=== PATIENT | male | born 1960 | race Caucasian/White ===

== ENCOUNTER 2021-02-04 12:46 | Inpatient (IN) | payer MEDICAID ==
[~2021-02-04] VITALS: Ht 167.6 cm; Wt 71.2 kg
[2021-02-04] MEDS ORDERED: IV NORMAL SALINE 1000 ML BAG IV ONE (13:15)
[2021-02-04] MEDS ORDERED: PIPERACILLIN SODIUM/TAZOBACTAM 3.375 G in IV DEXTROSE 5% 50 ML IV ONE (13:30)
[2021-02-04] MEDS ORDERED: IV NORMAL SALINE 0 ML IV ONE (13:38)
[2021-02-04] MEDS ORDERED: IOHEXOL 300MG/ML 100 ML INFUS..BTL ONE (13:38)
[2021-02-04] MEDS ORDERED: SWABABLE VALVE TRANSFER SET EA MC ONE (13:38)
[2021-02-04 13:42] LABS: HEMATOCRIT 29.3 % (36.7-47.1); MEAN CORPUSCULAR HEMOGLOBIN 26.2 uug (23.8-33.4); MEAN CORPUSCULAR VOLUME 80.4 fL (73.0-96.2); PLATELET COUNT (AUTO) 212 K/uL (152-348)
[2021-02-04 13:47] LABS: CREATININE 1.9 mg/dL (0.6-1.3); POTASSIUM 3.6 mmol/L (3.5-5.1)
[2021-02-04 13:52] LABS: BILIRUBIN,DIRECT 0.1 mg/dL (0.0-0.2); BILIRUBIN,TOTAL 0.4 mg/dL (0.2-1.0); TOTAL PROTEIN, SERUM 7.8 g/dL (6.4-8.2)
[2021-02-04] MEDS ORDERED: MORPHINE SULFATE 2 MG/1 ML DISP.SYRIN IV ONE (14:00)
[2021-02-04] MEDS ORDERED: MORPHINE SULFATE 2 MG/1 ML DISP.SYRIN ONE (14:08)
[2021-02-04] MEDS ORDERED: PIPERACILLIN/TAZOBACTAM/D5W 50 ML IV ONE (14:08)
[2021-02-04] MEDS ORDERED: AZITHROMYCIN IV 500 MG in IV DEXTROSE 5% 250 ML IV ONE (15:30)
[2021-02-04] MEDS ORDERED: AZITHROMYCIN 500MG/ D5W 250ML IVPB **ER PYXIS ONLY IV ONE (15:53)
[2021-02-04] MEDS ORDERED: ACETAMINOPHEN 650 MG SUPP.RECT RC ONE ×2 (16:30→16:35)
[2021-02-04] MEDS ORDERED: ACETAMINOPHEN 325 MG SUPP RC ONE (16:30)
[2021-02-04] MEDS ORDERED: IV NORMAL SALINE 250 ML IV ONE (16:30)
[2021-02-04] MEDS ORDERED: VANCOMYCIN 1G/D5W 200 ML PIGGYBACK IV ONE (16:30)
[2021-02-04] MEDS ORDERED: IV NORMAL SALINE 500 ML IV ONE (16:30)
[2021-02-04] MEDS ORDERED: ACETAMINOPHEN 325 MG SUPP ONE (16:34)
[2021-02-04] MEDS ORDERED: VANCOMYCIN IV 200 ML ONE (16:35)
[2021-02-04 16:44] LABS: *BILIRUBIN,URIN NEGATIVE (NEGATIVE); *BLOOD, URINE 2+ (NEGATIVE); *CLARITY,URINE SLIGHTLY CLOUDY (CLEAR); *COLOR,URINE YELLOW (YELLOW); *KETONES,URINE NEGATIVE (NEGATIVE); *UROBILINOGEN,URINE 0.2 E.U./dl (NORMAL); LEUKOCYTE ESTERASE ,URINE NEGATIVE (NEGATIVE); NITRITE, URINE NEGATIVE (NEGATIVE); UGLUCOSE NEGATIVE (NEGATIVE)
[2021-02-04 16:51] LABS: ABG HCO3 19.8 mmol/L; ABG PCO2 27.5 mmHg (35.0-45.0); ABG PH 7.476 (7.350-7.450); ABG PO2 399.6 mmHg (75.0-100.0); ABG SITE LEFT RADIAL; COHb 0.3 % (0.5-1.5); MetHb 0.3 % (0.0-1.5); O2Hb 97.5 % (94.0-97.0); VENT MODE BIPAP
[2021-02-04 16:51] LABS: BACTERIA,URINE MANY /HPF (NONE SEEN); SQUAMOUS EPITHELIAL CELL,UR FEW /HPF (NONE SEEN); URINE AMORPHOUS PHOSPHATES FEW /HPF
[2021-02-04] MEDS: ASPIRIN EC 325 MG TABLET.DR PO SCH (21:30)
[2021-02-04 23:00] VITALS: BP 87/50
[2021-02-05] VITALS (73 sets, daily range): BP systolic 76–149; BP diastolic 38–120
[2021-02-05] MEDS ORDERED: PIPERACILLIN/TAZOBACTAM/D5W 50 ML ONE (00:23)
[2021-02-05] MEDS: HEPARIN/D5W DRIP 500 ML IV PRN (00:33)
[2021-02-05] MEDS: [UNRECOGNIZED DRUG - MIXTURE] IV SCH ×2 (00:34→10:01)
[2021-02-05] MEDS: MORPHINE SULFATE 2 MG/1 ML DISP.SYRIN IV PRN ×4 (01:36→19:51)
[2021-02-05] MEDS ORDERED: PHENYLEPHRINE 10 MG/1 ML VIAL ONE (03:17)
[2021-02-05] MEDS: PHENYLEPHRINE IV 50 MG in IV NORMAL SALINE 245 ML IV PRN (03:27)
[2021-02-05 05:33] LABS: MEAN CORPUSCULAR VOLUME 82.1 fL (73.0-96.2)
[2021-02-05 05:34] LABS: HEMATOCRIT 26.2 % (36.7-47.1); MEAN CORPUSCULAR HEMOGLOBIN 26.6 uug (23.8-33.4); PLATELET COUNT (AUTO) 153 K/uL (152-348)
[2021-02-05 05:50] LABS: THYROID STIMULATING HORMONE 0.392 mIU/mL (0.358-3.740)
[2021-02-05 05:51] LABS: BILIRUBIN,TOTAL 0.6 mg/dL (0.2-1.0); MAGNESIUM 1.4 mg/dL (1.8-2.4); POTASSIUM 4.7 mmol/L (3.5-5.1)
[2021-02-05 06:47] LABS: BAND % (MANUAL) 38 % (0-10); LYMPHOCYTES % (MANUAL) 5 % (20-40); METAMYELOCYTES % 3 % (0-1); MONOCYTES % (MANUAL) 2 % (2-10); NEUTROPHILS % (MANUAL) 52 % (42-75)
[2021-02-05] MEDS ORDERED: MAGNESIUM SULFATE/D5W 100 ML IV SCH (07:15)
[2021-02-05] MEDS: ONDANSETRON 4 MG/2 ML VIAL IV PRN (08:24)
[2021-02-05] MEDS: PANTOPRAZOLE SODIUM 40 MG VIAL IV SCH (08:28)
[2021-02-05] MEDS ORDERED: IV D5/ 0.9% NACL 1,000 ML IV SCH (09:00)
[2021-02-05] MEDS: IV D5/ 0.9% NACL 1,000 ML IV PRN ×2 (09:30→18:12)
[2021-02-05] MEDS ORDERED: LORAZEPAM 2 MG/1 ML VIAL IV STA (10:17)
[2021-02-05] MEDS ORDERED: METOCLOPRAMIDE HCL 10 MG/2 ML VIAL IV STA (10:18)
[2021-02-05] MEDS ORDERED: diphenhydrAMINE 50 MG/1 ML VIAL IV STA (10:18)
[2021-02-05] MEDS: ASPIRIN EC 325 MG TABLET.DR PO SCH (11:07)
[2021-02-05] MEDS ORDERED: MIRALAX 17 GM POWD.PACK PO PRN (11:15)
[2021-02-05] MEDS: ATORVASTATIN 40 MG TABLET PO SCH ×2 (11:46→21:02)
[2021-02-05] MEDS: FERROUS SULFATE 300 MG/5 ML LIQUID UDC NG SCH ×2 (11:47→21:08)
[2021-02-05] MEDS: CEFEPIME HCL 1 G in IV DEXTROSE 5% 50 ML IV SCH (13:19)
[2021-02-05] MEDS: LORAZEPAM 2 MG/1 ML VIAL IV PRN ×2 (13:25→23:46)
[2021-02-05] MEDS ORDERED: PIPERACILLIN/TAZO 2.25 G in IV DEXTROSE 5% 50 ML IV SCH (14:00)
[2021-02-05 14:28] LABS: *BLOOD, URINE 3+ (NEGATIVE); *COLOR,URINE YELLOW (YELLOW); *KETONES,URINE 1+ (NEGATIVE); *UROBILINOGEN,URINE 0.2 E.U./dl (NORMAL); LEUKOCYTE ESTERASE ,URINE TRACE (NEGATIVE); NITRITE, URINE NEGATIVE (NEGATIVE); PH,URINE 5.5 (5.0-8.0); UGLUCOSE NEGATIVE (NEGATIVE)
[2021-02-05 14:35] LABS: *BILIRUBIN,URIN 1+ (NEGATIVE)
[2021-02-05 14:40] LABS: *CLARITY,URINE TURBID (CLEAR); RBC,URINE TNTC /HPF (0-3)
[2021-02-05 14:43] LABS: BACTERIA,URINE MODERATE /HPF (NONE SEEN); SQUAMOUS EPITHELIAL CELL,UR FEW /HPF (NONE SEEN)
[2021-02-05] MEDS: ACETAMINOPHEN 650 MG SUPP.RECT RC PRN (15:09)
[2021-02-05] MEDS ORDERED: FLEET ENEMA 133 ML BOTTLE RC ONE (15:30)
[2021-02-05 15:44] LABS: *URINE TOTAL PROTEIN RANDOM 503.1 mg/dL (<150/24HR)
[2021-02-05] MEDS ORDERED: CLON1TAB PO (15:46)
[2021-02-05] MEDS ORDERED: LORA10TA7 PO (15:46)
[2021-02-05] MEDS ORDERED: OXYC-128 PO (15:46)
[2021-02-05] MEDS ORDERED: FAMO1TAB29 PO (15:46)
[2021-02-05] MEDS ORDERED: ACET-2154 PO (15:46)
[2021-02-05] MEDS ORDERED: LACT1CAP7 PO (15:46)
[2021-02-05] MEDS ORDERED: CLON0.1T PO (15:46)
[2021-02-05] MEDS ORDERED: MELA3CAP2 PO (15:46)
[2021-02-05] MEDS ORDERED: ROSU20TA32 PO (15:46)
[2021-02-05] MEDS ORDERED: DOCU-141 PO (15:46)
[2021-02-05] MEDS ORDERED: TRAV5DRO EACHEYE (15:46)
[2021-02-05] MEDS ORDERED: OLOP2.5D12 EACHEYE (15:46)
[2021-02-05] MEDS ORDERED: INSU100V7 SQ (15:46)
[2021-02-05] MEDS ORDERED: GLUC1KIT IM (15:46)
[2021-02-05] MEDS ORDERED: METO25TA3 PO (15:46)
[2021-02-05] MEDS ORDERED: FERR325T24 PO (15:46)
[2021-02-05] MEDS ORDERED: ASPI-1420 PO (15:46)
[2021-02-05] MEDS ORDERED: NIFE-34 PO (15:46)
[2021-02-05] MEDS ORDERED: CAPS60CR4 TP (15:46)
[2021-02-05] MEDS ORDERED: ASCO500C18 PO (15:46)
[2021-02-05] MEDS ORDERED: CALC-494 PO (15:46)
[2021-02-05] MEDS ORDERED: CYCL30DR EACHEYE (15:46)
[2021-02-05] MEDS ORDERED: DEXT50DI8 IV (15:46)
[2021-02-05] MEDS ORDERED: SENN-261 PO (15:46)
[2021-02-05] MEDS ORDERED: ASPI1TAB32 PO (15:46)
[2021-02-05] MEDS ORDERED: TAMS-3 PO (15:46)
[2021-02-05] MEDS ORDERED: DORZ10DR11 EACHEYE (15:46)
[2021-02-05] MEDS: METOPROLOL TARTRATE 25 MG TABLET PO SCH ×3 (15:49→22:00)
[2021-02-05] MEDS ORDERED: DEXTROSE 50% 50 ML DISP.SYRIN IV PRN (16:00)
[2021-02-05] MEDS: VANCOMYCIN IV 750 MG in IV DEXTROSE 5% 250 ML IV SCH (16:23)
[2021-02-05] MEDS: BLOOD SUGAR DIAGNOSTIC 1 EACH STRIP VI SCH ×2 (18:23→23:54)
[2021-02-05] MEDS: INSULIN REGULAR, HUMAN 300 UNIT/3 ML VIAL SQ PRN ×2 (18:24→23:56)
[2021-02-05] MEDS: GUAIFENESIN/DEXTROMETHORPHAN 5 ML UDC PO PRN (22:59)
[2021-02-06] VITALS (94 sets, daily range): BP systolic 33–181; BP diastolic 21–154
[2021-02-06] MEDS: HEPARIN/D5W DRIP 500 ML IV PRN (00:18)
[2021-02-06] MEDS: PHENYLEPHRINE IV 50 MG in IV NORMAL SALINE 245 ML IV PRN (00:19)
[2021-02-06] MEDS: MORPHINE SULFATE 2 MG/1 ML DISP.SYRIN IV PRN ×3 (00:56→10:56)
[2021-02-06] MEDS: IV D5/ 0.9% NACL 1,000 ML IV PRN ×3 (02:34→22:05)
[2021-02-06 02:57] LABS: ABG BASE EXCESS -6.7 mmol/L; ABG HCO3 17.9 mmol/L; ABG PCO2 32.1 mmHg (35.0-45.0); ABG PH 7.364 (7.350-7.450); ABG PO2 59.2 mmHg (75.0-100.0); ABG SITE RIGHT RADIAL; ABG TOTAL HEMOGLOBIN 8.3 G/dL (13.5-18.0); COHb 0.4 % (0.5-1.5); MetHb 0.3 % (0.0-1.5); O2Hb 89.3 % (94.0-97.0); VENT MODE BIPAP
[2021-02-06] MEDS: BLOOD SUGAR DIAGNOSTIC 1 EACH STRIP VI SCH ×4 (05:09→23:34)
[2021-02-06] MEDS: INSULIN REGULAR, HUMAN 300 UNIT/3 ML VIAL SQ PRN ×4 (05:10→23:37)
[2021-02-06 05:30] LABS: HEMATOCRIT 26.2 % (36.7-47.1); MEAN CORPUSCULAR HEMOGLOBIN 25.9 uug (23.8-33.4); MEAN CORPUSCULAR VOLUME 82.5 fL (73.0-96.2); PLATELET COUNT (AUTO) 106 K/uL (152-348)
[2021-02-06 05:39] LABS: BILIRUBIN,TOTAL 0.6 mg/dL (0.2-1.0); CREATININE 3.3 mg/dL (0.6-1.3); MAGNESIUM 1.7 mg/dL (1.8-2.4); PHOSPHOROUS 3.5 mg/dL (2.5-4.9); POTASSIUM 3.7 mmol/L (3.5-5.1); TOTAL PROTEIN, SERUM 6.2 g/dL (6.4-8.2)
[2021-02-06 05:41] LABS: BILIRUBIN,DIRECT 0.3 mg/dL (0.0-0.2); BILIRUBIN,TOTAL 0.5 mg/dL (0.2-1.0); TOTAL PROTEIN, SERUM 6.1 g/dL (6.4-8.2)
[2021-02-06 06:14] LABS: ABG BASE EXCESS -5.7 mmol/L; ABG HCO3 18.5 mmol/L; ABG PCO2 31.4 mmHg (35.0-45.0); ABG PH 7.389 (7.350-7.450); ABG PO2 147.4 mmHg (75.0-100.0); ABG SITE RIGHT RADIAL; ABG TOTAL HEMOGLOBIN 8.1 G/dL (13.5-18.0); COHb 0.3 % (0.5-1.5); MetHb 0.3 % (0.0-1.5); VENT MODE BIPAP
[2021-02-06 07:54] LABS: ABG BASE EXCESS -6.6 mmol/L; ABG HCO3 17.9 mmol/L; ABG PCO2 31.8 mmHg (35.0-45.0); ABG PH 7.369 (7.350-7.450); ABG PO2 254.1 mmHg (75.0-100.0); ABG SITE LEFT RADIAL; ABG TOTAL HEMOGLOBIN 8.3 G/dL (13.5-18.0); COHb 0.3 % (0.5-1.5); MetHb 0.3 % (0.0-1.5); O2Hb 97.7 % (94.0-97.0); VENT MODE BIPAP
[2021-02-06] MEDS ORDERED: PROPOFOL 100 ML IV PRN (08:30)
[2021-02-06] MEDS ORDERED: MAGNESIUM SULFATE/D5W 100 ML IV SCH (08:45)
[2021-02-06] MEDS: METOPROLOL TARTRATE 25 MG TABLET PO SCH ×2 (08:57→19:29)
[2021-02-06] MEDS: ASPIRIN EC 325 MG TABLET.DR PO SCH (08:57)
[2021-02-06] MEDS: FERROUS SULFATE 300 MG/5 ML LIQUID UDC NG SCH ×2 (08:57→18:09)
[2021-02-06] MEDS: PANTOPRAZOLE SODIUM 40 MG VIAL IV SCH (08:57)
[2021-02-06] MEDS: MIDAZOLAM HCL 50 MG in IV NORMAL SALINE 40 ML IV PRN ×3 (09:05→23:13)
[2021-02-06] MEDS ORDERED: NOREPINEPHRINE BITARTRATE 8 MG in IV NORMAL SALINE 242 ML IV PRN (09:30)
[2021-02-06] MEDS ORDERED: NOREPINEPHRINE BITARTRATE 32 MG in IV NORMAL SALINE 218 ML IV PRN (09:30)
[2021-02-06] MEDS: LORAZEPAM 2 MG/1 ML VIAL IV PRN (09:54)
[2021-02-06] MEDS: FENTANYL CITRATE/PF 1,000 MCG in IV NORMAL SALINE 80 ML IV PRN ×2 (09:57→19:16)
[2021-02-06 10:58] LABS: ABG BASE EXCESS -6.9 mmol/L; ABG HCO3 18.2 mmol/L; ABG PCO2 34.5 mmHg (35.0-45.0); ABG PO2 161.2 mmHg (75.0-100.0); ABG SITE LEFT RADIAL; ABG TOTAL HEMOGLOBIN 7.8 G/dL (13.5-18.0); COHb 0.3 % (0.5-1.5); MetHb 0.3 % (0.0-1.5); O2Hb 97.3 % (94.0-97.0); VENT MODE VENT - A/C; VT, ABG 550 mL
[2021-02-06] MEDS: PRECEDEX 400 MCG/100 ML BOTTLE 100 ML IV PRN ×2 (11:47→18:26)
[2021-02-06] MEDS: CEFEPIME HCL 1 G in IV DEXTROSE 5% 50 ML IV SCH (12:23)
[2021-02-06] MEDS: VANCOMYCIN IV 750 MG in IV DEXTROSE 5% 250 ML IV SCH (16:05)
[2021-02-06] MEDS: ATORVASTATIN 40 MG TABLET PO SCH (20:14)
[2021-02-06] MEDS: MUPIROCIN 2% OINT 22 GM TUBE NS SCH (20:15)
[2021-02-07] VITALS (96 sets, daily range): BP systolic 67–131; BP diastolic 23–72
[2021-02-07] MEDS: PRECEDEX 400 MCG/100 ML BOTTLE 100 ML IV PRN ×3 (00:54→14:08)
[2021-02-07] MEDS: HEPARIN/D5W DRIP 500 ML IV PRN (02:12)
[2021-02-07 04:56] LABS: HEMATOCRIT 22.2 % (36.7-47.1); MEAN CORPUSCULAR HEMOGLOBIN 26.2 uug (23.8-33.4); MEAN CORPUSCULAR VOLUME 83.6 fL (73.0-96.2); PLATELET COUNT (AUTO) 95 K/uL (152-348)
[2021-02-07] MEDS: FENTANYL CITRATE/PF 1,000 MCG in IV NORMAL SALINE 80 ML IV PRN ×2 (04:56→14:06)
[2021-02-07 05:09] LABS: BILIRUBIN,TOTAL 0.9 mg/dL (0.2-1.0); CREATININE 3.8 mg/dL (0.6-1.3); MAGNESIUM 1.8 mg/dL (1.8-2.4); PHOSPHOROUS 3.8 mg/dL (2.5-4.9); TOTAL PROTEIN, SERUM 5.4 g/dL (6.4-8.2)
[2021-02-07] MEDS: INSULIN REGULAR, HUMAN 300 UNIT/3 ML VIAL SQ PRN ×4 (05:25→23:28)
[2021-02-07] MEDS: BLOOD SUGAR DIAGNOSTIC 1 EACH STRIP VI SCH ×4 (05:25→23:24)
[2021-02-07 05:58] LABS: ABG SITE LEFT RADIAL; MetHb 0.3 % (0.0-1.5); VENT MODE VENT - A/C; VT, ABG 550 mL
[2021-02-07] MEDS: IV D5/ 0.9% NACL 1,000 ML IV PRN (06:05)
[2021-02-07 06:31] LABS: ABG BASE EXCESS -9.8 mmol/L; ABG HCO3 16.5 mmol/L; ABG PCO2 38.2 mmHg (35.0-45.0); ABG PH 7.254 (7.350-7.450); ABG PO2 57.4 mmHg (75.0-100.0); COHb 1.3 % (0.5-1.5); O2Hb 87.3 % (94.0-97.0)
[2021-02-07] MEDS: PANTOPRAZOLE SODIUM 40 MG VIAL IV SCH (08:14)
[2021-02-07] MEDS: FERROUS SULFATE 300 MG/5 ML LIQUID UDC NG SCH ×2 (08:14→16:05)
[2021-02-07] MEDS: METOPROLOL TARTRATE 25 MG TABLET PO SCH (08:15)
[2021-02-07] MEDS: MUPIROCIN 2% OINT 22 GM TUBE NS SCH ×2 (08:15→20:36)
[2021-02-07] MEDS ORDERED: ASPIRIN EC 325 MG TABLET.DR PO SCH (09:00)
[2021-02-07] MEDS ORDERED: ALBUMIN HUMAN 25% 100 ML IV SCH (09:30)
[2021-02-07] MEDS: FUROSEMIDE 40 MG/4 ML VIAL IV SCH ×2 (09:38→20:34)
[2021-02-07] MEDS: MIDAZOLAM HCL 50 MG in IV NORMAL SALINE 40 ML IV PRN ×2 (09:43→20:34)
[2021-02-07] MEDS: NOREPINEPHRINE BITARTRATE 8 MG in IV NORMAL SALINE 242 ML IV PRN (09:44)
[2021-02-07] MEDS: ASPIRIN 81 MG TAB.CHEW NG SCH (09:45)
[2021-02-07 12:06] LABS: A/G RATIO 0.9 (0.7-1.7); ALBUMIN 2.4 g/dL (2.9-4.4); ALPHA-1-GLOBULIN 0.3 g/dL (0.0-0.4); ALPHA-2-GLOBULIN 0.7 g/dL (0.4-1.0); BETA GLOBULIN 0.8 g/dL (0.7-1.3); GLOBULIN, TOTAL 2.7 g/dL (2.2-3.9); M-SPIKE Not Observed g/dL (Not Observed)
[2021-02-07] MEDS: CEFEPIME HCL 1 G in IV DEXTROSE 5% 50 ML IV SCH (12:18)
[2021-02-07 14:16] LABS: BAND % (MANUAL) 6 % (0-10); LYMPHOCYTES % (MANUAL) 5 % (20-40); MONOCYTES % (MANUAL) 2 % (2-10); NEUTROPHILS % (MANUAL) 87 % (42-75)
[2021-02-07] MEDS: ATORVASTATIN 40 MG TABLET PO SCH (20:34)
[2021-02-07] MEDS ORDERED: VANCOMYCIN IV 1,000 MG in IV DEXTROSE 5% 250 ML IV SCH (21:00)
[2021-02-07] MEDS: IV NORMAL SALINE 250 ML IV PRN (22:36)
[2021-02-08] VITALS (96 sets, daily range): BP systolic 65–141; BP diastolic 22–103
[2021-02-08] MEDS: PRECEDEX 400 MCG/100 ML BOTTLE 100 ML IV PRN ×3 (00:19→14:52)
[2021-02-08] MEDS: FENTANYL CITRATE/PF 1,000 MCG in IV NORMAL SALINE 80 ML IV PRN ×3 (00:34→22:35)
[2021-02-08] MEDS: MIDAZOLAM HCL 50 MG in IV NORMAL SALINE 40 ML IV PRN ×2 (05:31→14:37)
[2021-02-08] MEDS: BLOOD SUGAR DIAGNOSTIC 1 EACH STRIP VI SCH ×4 (06:03→23:35)
[2021-02-08] MEDS: Z GUARD REMEDY PASTE 57 GM TUBE TOP PRN (06:04)
[2021-02-08 06:08] LABS: ABG BASE EXCESS 1.2 mmol/L; ABG HCO3 25.8 mmol/L; ABG PCO2 40.7 mmHg (35.0-45.0); ABG PO2 77.6 mmHg (75.0-100.0); ABG SITE LEFT RADIAL; ABG TOTAL HEMOGLOBIN 8.6 G/dL (13.5-18.0); COHb 0.5 % (0.5-1.5); MetHb 0.3 % (0.0-1.5); O2Hb 94.8 % (94.0-97.0); VENT MODE VENT - A/C; VT, ABG 550 mL
[2021-02-08 06:56] LABS: MEAN CORPUSCULAR HEMOGLOBIN 26.5 uug (23.8-33.4); MEAN CORPUSCULAR VOLUME 80.5 fL (73.0-96.2); PLATELET COUNT (AUTO) 124 K/uL (152-348)
[2021-02-08 07:19] LABS: CREATININE 2.8 mg/dL (0.6-1.3); MAGNESIUM 1.7 mg/dL (1.8-2.4); POTASSIUM 3.1 mmol/L (3.5-5.1)
[2021-02-08] MEDS ORDERED: POTASSIUM CHLORIDE 20 MEQ POWDER PACKET NG ONE (07:30)
[2021-02-08] MEDS: FUROSEMIDE 40 MG/4 ML VIAL IV SCH ×3 (07:39→21:39)
[2021-02-08] MEDS ORDERED: NORMAL SALINE IV SCH ×2 (07:45→08:00)
[2021-02-08] MEDS ORDERED: CHLOROTHIAZIDE SODIUM IV SCH ×2 (07:45→08:00)
[2021-02-08] MEDS: MAGNESIUM SULFATE/D5W 100 ML IV SCH ×2 (07:51→08:52)
[2021-02-08] MEDS: ASPIRIN 81 MG TAB.CHEW NG SCH (08:17)
[2021-02-08] MEDS: FERROUS SULFATE 300 MG/5 ML LIQUID UDC NG SCH ×2 (08:17→17:06)
[2021-02-08] MEDS: PANTOPRAZOLE SODIUM 40 MG VIAL IV SCH (08:18)
[2021-02-08] MEDS: MUPIROCIN 2% OINT 22 GM TUBE NS SCH ×2 (08:19→21:42)
[2021-02-08] MEDS ORDERED: MAGNESIUM SULFATE/D5W 100 ML IV SCH (09:30)
[2021-02-08] MEDS ORDERED: POTASSIUM CHLORIDE 50 ML IV SCH (09:30)
[2021-02-08] MEDS: NOREPINEPHRINE BITARTRATE 8 MG in IV NORMAL SALINE 242 ML IV PRN (09:57)
[2021-02-08] MEDS ORDERED: METOLAZONE 2.5 MG TABLET PO ONE (10:00)
[2021-02-08] MEDS: CEFEPIME HCL 1 G in IV DEXTROSE 5% 50 ML IV SCH (12:33)
[2021-02-08] MEDS: INSULIN REGULAR, HUMAN 300 UNIT/3 ML VIAL SQ PRN ×2 (12:46→23:36)
[2021-02-08] MEDS: PROTEIN SUPPLEMENT (PROSTAT) 30 ML LIQUID NG SCH (18:02)
[2021-02-08] MEDS: NEPRO 1000 ML GT PRN (18:03)
[2021-02-08] MEDS: ACIDOPHILUS/BULGARICUS CHEW TAB NG SCH (21:39)
[2021-02-08] MEDS: ATORVASTATIN 40 MG TABLET PO SCH (21:39)
[2021-02-08] MEDS ORDERED: DOCUSATE SODIUM 100 MG/10 ML LIQUID UDC ONE (21:59)
[2021-02-08] MEDS: DOCUSATE SODIUM 100 MG/10 ML LIQUID UDC NG SCH (22:01)
[2021-02-08] MEDS ORDERED: VANCOMYCIN IV 1,250 MG in IV DEXTROSE 5% 250 ML IV SCH (23:00)
[2021-02-09] VITALS (97 sets, daily range): BP systolic 72–145; BP diastolic 37–75
[2021-02-09] MEDS: PRECEDEX 400 MCG/100 ML BOTTLE 100 ML IV PRN ×4 (00:13→22:40)
[2021-02-09] MEDS: MIDAZOLAM HCL 50 MG in IV NORMAL SALINE 40 ML IV PRN ×3 (00:29→20:35)
[2021-02-09 05:07] LABS: MEAN CORPUSCULAR HEMOGLOBIN 26.8 uug (23.8-33.4); MEAN CORPUSCULAR VOLUME 80.3 fL (73.0-96.2); PLATELET COUNT (AUTO) 137 K/uL (152-348)
[2021-02-09] MEDS: FUROSEMIDE 40 MG/4 ML VIAL IV SCH ×3 (05:30→21:05)
[2021-02-09] MEDS: BLOOD SUGAR DIAGNOSTIC 1 EACH STRIP VI SCH ×4 (05:32→23:31)
[2021-02-09] MEDS: INSULIN REGULAR, HUMAN 300 UNIT/3 ML VIAL SQ PRN ×4 (05:33→23:33)
[2021-02-09 05:42] LABS: BILIRUBIN,TOTAL 1.6 mg/dL (0.2-1.0); CREATININE 3.8 mg/dL (0.6-1.3); MAGNESIUM 2.3 mg/dL (1.8-2.4); PHOSPHOROUS 2.8 mg/dL (2.5-4.9); POTASSIUM 3.4 mmol/L (3.5-5.1); TOTAL PROTEIN, SERUM 5.5 g/dL (6.4-8.2)
[2021-02-09] MEDS: FENTANYL CITRATE/PF 1,000 MCG in IV NORMAL SALINE 80 ML IV PRN ×2 (08:08→18:34)
[2021-02-09 08:12] LABS: ABG BASE EXCESS 0.7 mmol/L; ABG HCO3 24.5 mmol/L; ABG PCO2 35.6 mmHg (35.0-45.0); ABG PH 7.456 (7.350-7.450); ABG PO2 259.4 mmHg (75.0-100.0); ABG SITE RIGHT RADIAL; ABG TOTAL HEMOGLOBIN 7.8 G/dL (13.5-18.0); COHb 0.3 % (0.5-1.5); MetHb 0.3 % (0.0-1.5); O2Hb 97.4 % (94.0-97.0); VENT MODE VENT - A/C; VT, ABG 550 mL
[2021-02-09] MEDS ORDERED: POTASSIUM CHLORIDE 20 MEQ POWDER PACKET GT ONE (09:00)
[2021-02-09] MEDS: PANTOPRAZOLE SODIUM 40 MG VIAL IV SCH (09:01)
[2021-02-09] MEDS: ALBUMIN HUMAN 25% 100 ML IV SCH ×3 (09:04→20:32)
[2021-02-09] MEDS: ASPIRIN 81 MG TAB.CHEW NG SCH (09:04)
[2021-02-09] MEDS: ACIDOPHILUS/BULGARICUS CHEW TAB NG SCH ×2 (09:04→20:30)
[2021-02-09] MEDS: FERROUS SULFATE 300 MG/5 ML LIQUID UDC NG SCH ×2 (09:04→16:37)
[2021-02-09] MEDS: MUPIROCIN 2% OINT 22 GM TUBE NS SCH ×2 (09:09→20:31)
[2021-02-09] MEDS: PROTEIN SUPPLEMENT (PROSTAT) 30 ML LIQUID NG SCH (09:36)
[2021-02-09] MEDS: DOCUSATE SODIUM 100 MG/10 ML LIQUID UDC NG SCH (09:48)
[2021-02-09] MEDS ORDERED: MUPIROCIN 2% OINT 22 GM TUBE NS SCH (11:00)
[2021-02-09] MEDS: CEFEPIME HCL 1 G in IV DEXTROSE 5% 50 ML IV SCH (12:31)
[2021-02-09] MEDS: ACETAMINOPHEN 650 MG SUPP.RECT RC PRN (16:58)
[2021-02-09] MEDS: NOREPINEPHRINE BITARTRATE 8 MG in IV NORMAL SALINE 242 ML IV PRN (20:16)
[2021-02-09] MEDS ORDERED: ACETAMINOPHEN 650 MG/20.3 ML LIQUID UDC GT STA (20:23)
[2021-02-09] MEDS: ATORVASTATIN 40 MG TABLET PO SCH (20:30)
[2021-02-09] MEDS: Z GUARD REMEDY PASTE 57 GM TUBE TOP PRN (20:31)
[2021-02-09 23:24] LABS: HEPATITIS B SURFACE AG Negative
[2021-02-10] VITALS (84 sets, daily range): BP systolic 73–133; BP diastolic 42–73
[2021-02-10] MEDS: ALBUMIN HUMAN 25% 100 ML IV SCH (03:03)
[2021-02-10] MEDS: NOREPINEPHRINE BITARTRATE 8 MG in IV NORMAL SALINE 242 ML IV PRN ×2 (03:17→22:17)
[2021-02-10] MEDS: FENTANYL CITRATE/PF 1,000 MCG in IV NORMAL SALINE 80 ML IV PRN ×2 (04:35→15:17)
[2021-02-10 04:58] LABS: HEMATOCRIT 23.4 % (36.7-47.1); MEAN CORPUSCULAR HEMOGLOBIN 27.5 uug (23.8-33.4); MEAN CORPUSCULAR VOLUME 81.2 fL (73.0-96.2); PLATELET COUNT (AUTO) 134 K/uL (152-348)
[2021-02-10 05:09] LABS: CREATININE 4.6 mg/dL (0.6-1.3); MAGNESIUM 2.2 mg/dL (1.8-2.4); PHOSPHOROUS 2.6 mg/dL (2.5-4.9); VANCOMYCIN,RANDOM 19.7 ug/mL (18.0-26.0)
[2021-02-10] MEDS: FUROSEMIDE 40 MG/4 ML VIAL IV SCH ×3 (05:36→21:08)
[2021-02-10] MEDS: BLOOD SUGAR DIAGNOSTIC 1 EACH STRIP VI SCH ×3 (05:44→17:28)
[2021-02-10] MEDS: INSULIN REGULAR, HUMAN 300 UNIT/3 ML VIAL SQ PRN ×2 (05:46→17:30)
[2021-02-10] MEDS: PRECEDEX 400 MCG/100 ML BOTTLE 100 ML IV PRN ×3 (06:19→21:03)
[2021-02-10] MEDS: MIDAZOLAM HCL 50 MG in IV NORMAL SALINE 40 ML IV PRN ×2 (06:22→17:12)
[2021-02-10] MEDS ORDERED: POTASSIUM CHLORIDE 20 MEQ POWDER PACKET GT ONE (07:30)
[2021-02-10 08:05] LABS: ABG BASE EXCESS -1.7 mmol/L; ABG HCO3 22.1 mmol/L; ABG PCO2 33.2 mmHg (35.0-45.0); ABG PH 7.441 (7.350-7.450); ABG PO2 75.5 mmHg (75.0-100.0); ABG SITE LEFT RADIAL; ABG TOTAL HEMOGLOBIN 8.3 G/dL (13.5-18.0); COHb 0.8 % (0.5-1.5); O2Hb 94.4 % (94.0-97.0); VENT MODE VENT - A/C; VT, ABG 550 mL
[2021-02-10] MEDS: ACETAMINOPHEN 650 MG SUPP.RECT RC PRN (08:38)
[2021-02-10] MEDS: FERROUS SULFATE 300 MG/5 ML LIQUID UDC NG SCH ×2 (08:39→17:16)
[2021-02-10] MEDS: DOCUSATE SODIUM 100 MG/10 ML LIQUID UDC NG SCH (08:39)
[2021-02-10] MEDS: ASPIRIN 81 MG TAB.CHEW NG SCH (08:39)
[2021-02-10] MEDS: PANTOPRAZOLE ORAL SUSPENSION 40 MG SUSPDR.PKT GT SCH (08:39)
[2021-02-10] MEDS: ACIDOPHILUS/BULGARICUS CHEW TAB NG SCH ×2 (08:40→21:08)
[2021-02-10] MEDS: MUPIROCIN 2% OINT 22 GM TUBE NS SCH ×2 (08:41→21:06)
[2021-02-10] MEDS: CEFEPIME HCL 1 G in IV DEXTROSE 5% 50 ML IV SCH (12:50)
[2021-02-10] MEDS ORDERED: VANCOMYCIN IV 500 MG in IV DEXTROSE 5% 100 ML IV ONE (13:00)
[2021-02-10] MEDS: IV NORMAL SALINE 250 ML IV PRN (15:46)
[2021-02-10] MEDS: ATORVASTATIN 40 MG TABLET PO SCH (21:08)
[2021-02-11] VITALS (92 sets, daily range): BP systolic 89–146; BP diastolic 38–103
[2021-02-11] MEDS: BLOOD SUGAR DIAGNOSTIC 1 EACH STRIP VI SCH ×4 (00:32→18:23)
[2021-02-11] MEDS: INSULIN REGULAR, HUMAN 300 UNIT/3 ML VIAL SQ PRN ×4 (00:35→18:24)
[2021-02-11] MEDS: FENTANYL CITRATE/PF 1,000 MCG in IV NORMAL SALINE 80 ML IV PRN ×4 (01:32→21:53)
[2021-02-11] MEDS: MIDAZOLAM HCL 50 MG in IV NORMAL SALINE 40 ML IV PRN ×2 (02:37→17:02)
[2021-02-11] MEDS: PRECEDEX 400 MCG/100 ML BOTTLE 100 ML IV PRN ×3 (04:52→21:58)
[2021-02-11] MEDS: ACETAMINOPHEN 650 MG SUPP.RECT RC PRN (05:11)
[2021-02-11] MEDS: FUROSEMIDE 40 MG/4 ML VIAL IV SCH ×3 (05:11→21:05)
[2021-02-11 05:17] LABS: HEMATOCRIT 24.6 % (36.7-47.1); MEAN CORPUSCULAR HEMOGLOBIN 26.8 uug (23.8-33.4); MEAN CORPUSCULAR VOLUME 81.9 fL (73.0-96.2); PLATELET COUNT (AUTO) 131 K/uL (152-348)
[2021-02-11 05:34] LABS: POTASSIUM 3.8 mmol/L (3.5-5.1)
[2021-02-11 05:35] LABS: BILIRUBIN,TOTAL 2.6 mg/dL (0.2-1.0); CREATININE 3.9 mg/dL (0.6-1.3); MAGNESIUM 2.2 mg/dL (1.8-2.4); PHOSPHOROUS 1.7 mg/dL (2.5-4.9); TOTAL PROTEIN, SERUM 5.8 g/dL (6.4-8.2)
[2021-02-11 07:59] LABS: ABG BASE EXCESS 1.6 mmol/L; ABG HCO3 25.3 mmol/L; ABG PCO2 36.5 mmHg (35.0-45.0); ABG PH 7.459 (7.350-7.450); ABG PO2 56.9 mmHg (75.0-100.0); ABG SITE RIGHT BRACHIAL; ABG TOTAL HEMOGLOBIN 10.4 G/dL (13.5-18.0); COHb 0.8 % (0.5-1.5); MetHb 0.3 % (0.0-1.5); O2Hb 89.6 % (94.0-97.0); VENT MODE VENT - A/C; VT, ABG 550 mL
[2021-02-11] MEDS: FERROUS SULFATE 300 MG/5 ML LIQUID UDC NG SCH ×2 (09:24→17:02)
[2021-02-11] MEDS: DOCUSATE SODIUM 100 MG/10 ML LIQUID UDC NG SCH (09:24)
[2021-02-11] MEDS: ACIDOPHILUS/BULGARICUS CHEW TAB NG SCH ×2 (09:24→20:38)
[2021-02-11] MEDS: ASPIRIN 81 MG TAB.CHEW NG SCH (09:24)
[2021-02-11] MEDS: PANTOPRAZOLE ORAL SUSPENSION 40 MG SUSPDR.PKT GT SCH (09:24)
[2021-02-11] MEDS: MUPIROCIN 2% OINT 22 GM TUBE NS SCH ×2 (09:28→20:39)
[2021-02-11] MEDS: NEPRO 1000 ML GT PRN (10:59)
[2021-02-11] MEDS ORDERED: SODIUM PHOSPHATE MM 15 MMOL in IV NORMAL SALINE 250 ML IV ONE (11:00)
[2021-02-11] MEDS: CEFEPIME HCL 1 G in IV DEXTROSE 5% 50 ML IV SCH (13:07)
[2021-02-11] MEDS: ATORVASTATIN 40 MG TABLET PO SCH (20:38)
[2021-02-11] MEDS: NOREPINEPHRINE BITARTRATE 8 MG in IV NORMAL SALINE 242 ML IV PRN (22:02)
[2021-02-12] VITALS (66 sets, daily range): BP systolic 77–159; BP diastolic 37–79
[2021-02-12] MEDS: BLOOD SUGAR DIAGNOSTIC 1 EACH STRIP VI SCH ×5 (00:47→23:59)
[2021-02-12] MEDS: INSULIN REGULAR, HUMAN 300 UNIT/3 ML VIAL SQ PRN ×3 (00:48→13:01)
[2021-02-12] MEDS: MIDAZOLAM HCL 50 MG in IV NORMAL SALINE 40 ML IV PRN ×2 (02:13→13:02)
[2021-02-12 05:03] LABS: HEMATOCRIT 26.9 % (36.7-47.1); MEAN CORPUSCULAR HEMOGLOBIN 26.9 uug (23.8-33.4); MEAN CORPUSCULAR VOLUME 81.8 fL (73.0-96.2); PLATELET COUNT (AUTO) 128 K/uL (152-348)
[2021-02-12 05:07] LABS: *OCCULT BLOOD STOOL POSITIVE (NEGATIVE)
[2021-02-12] MEDS: FUROSEMIDE 40 MG/4 ML VIAL IV SCH (05:07)
[2021-02-12 05:13] LABS: CREATININE 5.1 mg/dL (0.6-1.3); MAGNESIUM 2.2 mg/dL (1.8-2.4); PHOSPHOROUS 2.7 mg/dL (2.5-4.9); POTASSIUM 3.7 mmol/L (3.5-5.1)
[2021-02-12] MEDS ORDERED: VANCOMYCIN IV 500 MG in IV DEXTROSE 5% 100 ML IV PRN (07:45)
[2021-02-12] MEDS: FENTANYL CITRATE/PF 1,000 MCG in IV NORMAL SALINE 80 ML IV PRN ×2 (08:51→19:10)
[2021-02-12] MEDS: ACIDOPHILUS/BULGARICUS CHEW TAB NG SCH ×2 (08:52→20:42)
[2021-02-12] MEDS: ASPIRIN 81 MG TAB.CHEW NG SCH (08:52)
[2021-02-12] MEDS: PANTOPRAZOLE ORAL SUSPENSION 40 MG SUSPDR.PKT GT SCH (08:52)
[2021-02-12] MEDS: DOCUSATE SODIUM 100 MG/10 ML LIQUID UDC NG SCH (08:53)
[2021-02-12] MEDS: MUPIROCIN 2% OINT 22 GM TUBE NS SCH ×2 (08:53→20:43)
[2021-02-12] MEDS: FERROUS SULFATE 300 MG/5 ML LIQUID UDC NG SCH ×2 (08:53→18:22)
[2021-02-12 10:51] LABS: ABG BASE EXCESS 3.1 mmol/L; ABG PCO2 38.4 mmHg (35.0-45.0); ABG PH 7.465 (7.350-7.450); ABG PO2 113.7 mmHg (75.0-100.0); ABG SITE RIGHT RADIAL; ABG TOTAL HEMOGLOBIN 10.4 G/dL (13.5-18.0); COHb 0.3 % (0.5-1.5); MetHb 0.3 % (0.0-1.5); O2Hb 97.3 % (94.0-97.0); VENT MODE VENT - A/C; VT, ABG 550 mL
[2021-02-12] MEDS: INSULIN GLARGINE,HUM 300 UNITS/3 ML CARTRIDGE SQ SCH (11:13)
[2021-02-12] MEDS ORDERED: VANCOMYCIN IV 500 MG in IV DEXTROSE 5% 100 ML IV ONE (12:00)
[2021-02-12] MEDS: CEFEPIME HCL 1 G in IV DEXTROSE 5% 50 ML IV SCH (13:00)
[2021-02-12] MEDS: ATORVASTATIN 40 MG TABLET NG SCH (20:42)
[2021-02-12] MEDS: PANTOPRAZOLE ORAL SUSPENSION 40 MG SUSPDR.PKT NG SCH (20:42)
[2021-02-13] VITALS (24 sets, daily range): BP systolic 87–140; BP diastolic 35–71
[2021-02-13] MEDS: MIDAZOLAM HCL 50 MG in IV NORMAL SALINE 40 ML IV PRN ×2 (01:08→16:16)
[2021-02-13] MEDS: IV NORMAL SALINE 250 ML IV PRN (01:09)
[2021-02-13] MEDS: FENTANYL CITRATE/PF 1,000 MCG in IV NORMAL SALINE 80 ML IV PRN ×2 (05:11→16:28)
[2021-02-13] MEDS: INSULIN REGULAR, HUMAN 300 UNIT/3 ML VIAL SQ PRN ×5 (05:16→23:30)
[2021-02-13] MEDS: BLOOD SUGAR DIAGNOSTIC 1 EACH STRIP VI SCH ×4 (05:16→23:29)
[2021-02-13 06:16] LABS: HEMATOCRIT 21.9 % (36.7-47.1); MEAN CORPUSCULAR HEMOGLOBIN 27.6 uug (23.8-33.4); MEAN CORPUSCULAR VOLUME 80.7 fL (73.0-96.2); PLATELET COUNT (AUTO) 128 K/uL (152-348)
[2021-02-13 06:29] LABS: BILIRUBIN,TOTAL 1.9 mg/dL (0.2-1.0); CREATININE 4.4 mg/dL (0.6-1.3); MAGNESIUM 1.9 mg/dL (1.8-2.4); PHOSPHOROUS 3.1 mg/dL (2.5-4.9); POTASSIUM 4.3 mmol/L (3.5-5.1); TOTAL PROTEIN, SERUM 5.7 g/dL (6.4-8.2)
[2021-02-13 08:05] LABS: ABG BASE EXCESS 2.5 mmol/L; ABG HCO3 24.3 mmol/L; ABG PCO2 26.9 mmHg (35.0-45.0); ABG PH 7.574 (7.350-7.450); ABG PO2 101.1 mmHg (75.0-100.0); ABG SITE RIGHT RADIAL; ABG TOTAL HEMOGLOBIN 7.6 G/dL (13.5-18.0); COHb 0.6 % (0.5-1.5); MetHb 0.3 % (0.0-1.5); O2Hb 96.7 % (94.0-97.0); VENT MODE VENT - A/C; VT, ABG 550 mL
[2021-02-13] MEDS: DOCUSATE SODIUM 100 MG/10 ML LIQUID UDC NG SCH (09:00)
[2021-02-13] MEDS: PANTOPRAZOLE ORAL SUSPENSION 40 MG SUSPDR.PKT NG SCH ×2 (09:06→21:39)
[2021-02-13] MEDS: ACIDOPHILUS/BULGARICUS CHEW TAB NG SCH ×2 (09:06→21:39)
[2021-02-13] MEDS: ASPIRIN 81 MG TAB.CHEW NG SCH (09:06)
[2021-02-13] MEDS: FERROUS SULFATE 300 MG/5 ML LIQUID UDC NG SCH ×2 (09:07→18:01)
[2021-02-13] MEDS: INSULIN GLARGINE,HUM 300 UNITS/3 ML CARTRIDGE SQ SCH (09:09)
[2021-02-13] MEDS: MUPIROCIN 2% OINT 22 GM TUBE NS SCH (09:09)
[2021-02-13] MEDS: CEFEPIME HCL 1 G in IV DEXTROSE 5% 50 ML IV SCH (12:14)
[2021-02-13] MEDS: ATORVASTATIN 40 MG TABLET NG SCH (21:39)
[2021-02-13] MEDS: METRONIDAZOLE 500 MG TABLET PO SCH (23:07)
[2021-02-14] VITALS (34 sets, daily range): BP systolic 84–159; BP diastolic 37–91
[2021-02-14] MEDS: FENTANYL CITRATE/PF 1,000 MCG in IV NORMAL SALINE 80 ML IV PRN ×3 (04:30→23:44)
[2021-02-14 05:06] LABS: HEMATOCRIT 21.7 % (36.7-47.1); MEAN CORPUSCULAR HEMOGLOBIN 27.6 uug (23.8-33.4); MEAN CORPUSCULAR VOLUME 81.7 fL (73.0-96.2); PLATELET COUNT (AUTO) 136 K/uL (152-348)
[2021-02-14 05:49] LABS: CREATININE 5.5 mg/dL (0.6-1.3); MAGNESIUM 2.1 mg/dL (1.8-2.4); PHOSPHOROUS 1.8 mg/dL (2.5-4.9); POTASSIUM 3.5 mmol/L (3.5-5.1); VANCOMYCIN,RANDOM 20.5 ug/mL (18.0-26.0)
[2021-02-14] MEDS: BLOOD SUGAR DIAGNOSTIC 1 EACH STRIP VI SCH ×3 (06:51→18:22)
[2021-02-14] MEDS: INSULIN REGULAR, HUMAN 300 UNIT/3 ML VIAL SQ PRN ×3 (06:52→18:24)
[2021-02-14] MEDS: METRONIDAZOLE 500 MG TABLET PO SCH ×3 (06:56→21:07)
[2021-02-14] MEDS ORDERED: INSULIN GLARGINE,HUM 300 UNITS/3 ML CARTRIDGE SQ ONE (07:59)
[2021-02-14] MEDS ORDERED: SODIUM PHOSPHATE MM 15 MMOL in IV NORMAL SALINE 250 ML IV ONE (08:00)
[2021-02-14] MEDS: DOCUSATE SODIUM 100 MG/10 ML LIQUID UDC NG SCH (09:00)
[2021-02-14] MEDS: ASPIRIN 81 MG TAB.CHEW NG SCH (09:00)
[2021-02-14] MEDS: ACIDOPHILUS/BULGARICUS CHEW TAB NG SCH ×2 (09:07→21:07)
[2021-02-14] MEDS: FERROUS SULFATE 300 MG/5 ML LIQUID UDC NG SCH ×2 (09:07→18:21)
[2021-02-14] MEDS: PANTOPRAZOLE ORAL SUSPENSION 40 MG SUSPDR.PKT NG SCH ×2 (09:07→21:07)
[2021-02-14] MEDS: NOREPINEPHRINE BITARTRATE 8 MG in IV NORMAL SALINE 242 ML IV PRN (09:36)
[2021-02-14] MEDS: MIDAZOLAM HCL 50 MG in IV NORMAL SALINE 40 ML IV PRN (10:43)
[2021-02-14 11:02] LABS: HEMATOCRIT 26.2 % (36.7-47.1)
[2021-02-14 11:17] LABS: ABG BASE EXCESS 5.4 mmol/L; ABG HCO3 28.6 mmol/L; ABG PCO2 36.5 mmHg (35.0-45.0); ABG PH 7.512 (7.350-7.450); ABG PO2 107.6 mmHg (75.0-100.0); ABG SITE RIGHT RADIAL; ABG TOTAL HEMOGLOBIN 9.4 G/dL (13.5-18.0); COHb 0.3 % (0.5-1.5); MetHb 0.3 % (0.0-1.5); VENT MODE VENT - A/C; VT, ABG 500 mL
[2021-02-14] MEDS: CEFEPIME HCL 1 G in IV DEXTROSE 5% 50 ML IV SCH (12:29)
[2021-02-14] MEDS ORDERED: DEXTROSE 50% 50 ML DISP.SYRIN IV PRN (12:45)
[2021-02-14] MEDS ORDERED: INSULIN GLARGINE,HUM 300 UNITS/3 ML CARTRIDGE SQ SCH (21:00)
[2021-02-14] MEDS: ATORVASTATIN 40 MG TABLET NG SCH (21:07)
[2021-02-15] VITALS (31 sets, daily range): BP systolic 105–145; BP diastolic 54–82
[2021-02-15] MEDS: MIDAZOLAM HCL 50 MG in IV NORMAL SALINE 40 ML IV PRN ×2 (00:08→16:37)
[2021-02-15] MEDS: BLOOD SUGAR DIAGNOSTIC 1 EACH STRIP VI SCH ×5 (00:18→23:30)
[2021-02-15] MEDS: INSULIN REGULAR, HUMAN 300 UNIT/3 ML VIAL SQ PRN ×5 (00:22→23:32)
[2021-02-15] MEDS: METRONIDAZOLE 500 MG TABLET PO SCH ×3 (05:30→22:07)
[2021-02-15 05:31] LABS: MEAN CORPUSCULAR HEMOGLOBIN 27.6 uug (23.8-33.4); PLATELET COUNT (AUTO) 152 K/uL (152-348)
[2021-02-15 05:35] LABS: BILIRUBIN,TOTAL 0.9 mg/dL (0.2-1.0); CREATININE 4.3 mg/dL (0.6-1.3); MAGNESIUM 1.9 mg/dL (1.8-2.4); PHOSPHOROUS 3.9 mg/dL (2.5-4.9); POTASSIUM 3.6 mmol/L (3.5-5.1); TOTAL PROTEIN, SERUM 5.6 g/dL (6.4-8.2)
[2021-02-15 05:47] LABS: ABG BASE EXCESS 3.2 mmol/L; ABG HCO3 26.7 mmol/L; ABG PCO2 35.5 mmHg (35.0-45.0); ABG PH 7.494 (7.350-7.450); ABG PO2 94.4 mmHg (75.0-100.0); ABG SITE RIGHT RADIAL; ABG TOTAL HEMOGLOBIN 7.4 G/dL (13.5-18.0); COHb 1.2 % (0.5-1.5); MetHb 0.1 % (0.0-1.5); O2Hb 95.9 % (94.0-97.0); VENT MODE VENT - A/C; VT, ABG 500 mL
[2021-02-15] MEDS: DOCUSATE SODIUM 100 MG/10 ML LIQUID UDC NG SCH (08:38)
[2021-02-15] MEDS: PANTOPRAZOLE ORAL SUSPENSION 40 MG SUSPDR.PKT NG SCH ×2 (08:38→20:12)
[2021-02-15] MEDS: ACIDOPHILUS/BULGARICUS CHEW TAB NG SCH ×2 (08:38→20:12)
[2021-02-15] MEDS: FERROUS SULFATE 300 MG/5 ML LIQUID UDC NG SCH ×2 (08:38→17:00)
[2021-02-15] MEDS: FENTANYL CITRATE/PF 1,000 MCG in IV NORMAL SALINE 80 ML IV PRN ×2 (11:30→22:55)
[2021-02-15] MEDS: CEFEPIME HCL 1 G in IV DEXTROSE 5% 50 ML IV SCH (12:07)
[2021-02-15 13:38] LABS: BAND % (MANUAL) 6 % (0-10); EOSINOPHILS % (MANUAL) 3 % (0-8); LYMPHOCYTES % (MANUAL) 8 % (20-40); MONOCYTES % (MANUAL) 9 % (2-10); NEUTROPHILS % (MANUAL) 74 % (42-75)
[2021-02-15 16:28] LABS: HEMATOCRIT 26.6 % (36.7-47.1)
[2021-02-15] MEDS: ATORVASTATIN 40 MG TABLET NG SCH (20:12)
[2021-02-15] MEDS: INSULIN GLARGINE,HUM 300 UNITS/3 ML CARTRIDGE SQ SCH (20:19)
[2021-02-16] VITALS (27 sets, daily range): BP systolic 91–156; BP diastolic 23–75
[2021-02-16] MEDS: METRONIDAZOLE 500 MG TABLET PO SCH ×3 (05:07→21:04)
[2021-02-16] MEDS: BLOOD SUGAR DIAGNOSTIC 1 EACH STRIP VI SCH ×4 (05:13→23:35)
[2021-02-16] MEDS: Z GUARD REMEDY PASTE 57 GM TUBE TOP PRN (05:14)
[2021-02-16] MEDS: INSULIN REGULAR, HUMAN 300 UNIT/3 ML VIAL SQ PRN ×4 (05:24→23:36)
[2021-02-16 05:35] LABS: HEMATOCRIT 23.6 % (36.7-47.1); MEAN CORPUSCULAR VOLUME 85.4 fL (73.0-96.2); PLATELET COUNT (AUTO) 186 K/uL (152-348)
[2021-02-16 05:44] LABS: ABG BASE EXCESS -0.6 mmol/L; ABG HCO3 23.7 mmol/L; ABG PCO2 37.4 mmHg (35.0-45.0); ABG PO2 88.6 mmHg (75.0-100.0); ABG SITE RIGHT RADIAL; COHb 1.1 % (0.5-1.5); MetHb 0.1 % (0.0-1.5); O2Hb 95.3 % (94.0-97.0); VENT MODE VENT - A/C; VT, ABG 500 mL
[2021-02-16 05:44] LABS: CREATININE 6.1 mg/dL (0.6-1.3); MAGNESIUM 2.2 mg/dL (1.8-2.4); PHOSPHOROUS 5.8 mg/dL (2.5-4.9); POTASSIUM 3.8 mmol/L (3.5-5.1)
[2021-02-16 06:19] LABS: VANCOMYCIN,RANDOM 13.8 ug/mL (18.0-26.0)
[2021-02-16] MEDS: PANTOPRAZOLE ORAL SUSPENSION 40 MG SUSPDR.PKT NG SCH ×2 (08:56→20:57)
[2021-02-16] MEDS: ACIDOPHILUS/BULGARICUS CHEW TAB NG SCH ×2 (08:56→20:57)
[2021-02-16] MEDS: FERROUS SULFATE 300 MG/5 ML LIQUID UDC NG SCH ×2 (08:56→17:29)
[2021-02-16] MEDS: DOCUSATE SODIUM 100 MG/10 ML LIQUID UDC NG SCH (08:56)
[2021-02-16] MEDS: FENTANYL CITRATE/PF 1,000 MCG in IV NORMAL SALINE 80 ML IV PRN ×3 (10:14→22:18)
[2021-02-16] MEDS: MIDAZOLAM HCL 50 MG in IV NORMAL SALINE 40 ML IV PRN ×2 (10:52→23:41)
[2021-02-16] MEDS: IV NORMAL SALINE 250 ML IV PRN (11:43)
[2021-02-16] MEDS: CEFEPIME HCL 1 G in IV DEXTROSE 5% 50 ML IV SCH (12:36)
[2021-02-16] MEDS ORDERED: VANCOMYCIN IV 1,000 MG in IV DEXTROSE 5% 250 ML IV ONE ×2 (14:45→16:00)
[2021-02-16] MEDS: ATORVASTATIN 40 MG TABLET NG SCH (20:57)
[2021-02-16] MEDS: INSULIN GLARGINE,HUM 300 UNITS/3 ML CARTRIDGE SQ SCH (21:02)
[2021-02-17] VITALS (42 sets, daily range): BP systolic 95–164; BP diastolic 53–81
[2021-02-17 05:06] LABS: CREATININE 4.1 mg/dL (0.6-1.3); PHOSPHOROUS 5.9 mg/dL (2.5-4.9)
[2021-02-17 05:07] LABS: HEMATOCRIT 23.2 % (36.7-47.1); MEAN CORPUSCULAR HEMOGLOBIN 27.9 uug (23.8-33.4); MEAN CORPUSCULAR VOLUME 85.8 fL (73.0-96.2); PLATELET COUNT (AUTO) 234 K/uL (152-348)
[2021-02-17] MEDS: METRONIDAZOLE 500 MG TABLET PO SCH (05:31)
[2021-02-17] MEDS: BLOOD SUGAR DIAGNOSTIC 1 EACH STRIP VI SCH ×4 (05:33→23:53)
[2021-02-17] MEDS: INSULIN REGULAR, HUMAN 300 UNIT/3 ML VIAL SQ PRN ×3 (06:03→23:54)
[2021-02-17] MEDS: PANTOPRAZOLE ORAL SUSPENSION 40 MG SUSPDR.PKT NG SCH (08:00)
[2021-02-17] MEDS: DOCUSATE SODIUM 100 MG/10 ML LIQUID UDC NG SCH (08:00)
[2021-02-17] MEDS: ACIDOPHILUS/BULGARICUS CHEW TAB NG SCH ×2 (08:00→20:40)
[2021-02-17] MEDS: FERROUS SULFATE 300 MG/5 ML LIQUID UDC NG SCH ×2 (08:00→17:00)
[2021-02-17] MEDS ORDERED: NEPRO 1000 ML GT PRN (08:00)
[2021-02-17 08:20] LABS: ABG BASE EXCESS 2.6 mmol/L; ABG HCO3 26.8 mmol/L; ABG PCO2 39.6 mmHg (35.0-45.0); ABG PH 7.448 (7.350-7.450); ABG PO2 78.8 mmHg (75.0-100.0); ABG SITE RIGHT RADIAL; ABG TOTAL HEMOGLOBIN 7.7 G/dL (13.5-18.0); COHb 1.6 % (0.5-1.5); MetHb 0.3 % (0.0-1.5); O2Hb 93.4 % (94.0-97.0); VENT MODE VENT - A/C; VT, ABG 500 mL
[2021-02-17] MEDS: FENTANYL CITRATE/PF 1,000 MCG in IV NORMAL SALINE 80 ML IV PRN ×2 (09:10→20:43)
[2021-02-17] MEDS: MIDAZOLAM HCL 50 MG in IV NORMAL SALINE 40 ML IV PRN (13:36)
[2021-02-17] MEDS ORDERED: ETOMIDATE 20 MG/10 ML VIAL IV ONE (19:38)
[2021-02-17] MEDS ORDERED: PROPOFOL 200 MG/20 ML BOTTLE IV ONE (19:38)
[2021-02-17] MEDS: ATORVASTATIN 40 MG TABLET NG SCH (20:40)
[2021-02-17] MEDS: INSULIN GLARGINE,HUM 300 UNITS/3 ML CARTRIDGE SQ SCH (20:42)
[2021-02-17] MEDS: PANTOPRAZOLE SODIUM 40 MG VIAL IV SCH (21:40)
[2021-02-18] VITALS (39 sets, daily range): BP systolic 73–185; BP diastolic 33–83
[2021-02-18] MEDS: MIDAZOLAM HCL 50 MG in IV NORMAL SALINE 40 ML IV PRN ×3 (01:56→19:21)
[2021-02-18 04:58] LABS: HEMATOCRIT 22.9 % (36.7-47.1); MEAN CORPUSCULAR HEMOGLOBIN 28.2 uug (23.8-33.4); MEAN CORPUSCULAR VOLUME 86.3 fL (73.0-96.2); PLATELET COUNT (AUTO) 306 K/uL (152-348)
[2021-02-18 05:08] LABS: CREATININE 5.5 mg/dL (0.6-1.3); MAGNESIUM 1.9 mg/dL (1.8-2.4); POTASSIUM 4.2 mmol/L (3.5-5.1)
[2021-02-18 05:13] LABS: PHOSPHOROUS 8.5 mg/dL (2.5-4.9)
[2021-02-18] MEDS: BLOOD SUGAR DIAGNOSTIC 1 EACH STRIP VI SCH ×4 (05:22→23:20)
[2021-02-18] MEDS: INSULIN REGULAR, HUMAN 300 UNIT/3 ML VIAL SQ PRN ×3 (05:22→23:21)
[2021-02-18] MEDS: IV NORMAL SALINE 250 ML IV PRN (05:24)
[2021-02-18] MEDS: FENTANYL CITRATE/PF 1,000 MCG in IV NORMAL SALINE 80 ML IV PRN ×2 (06:12→17:05)
[2021-02-18] MEDS: DOCUSATE SODIUM 100 MG/10 ML LIQUID UDC NG SCH (09:00)
[2021-02-18] MEDS: ACIDOPHILUS/BULGARICUS CHEW TAB NG SCH ×2 (09:56→20:22)
[2021-02-18] MEDS: FERROUS SULFATE 300 MG/5 ML LIQUID UDC NG SCH ×2 (09:56→17:05)
[2021-02-18] MEDS: PANTOPRAZOLE SODIUM 40 MG VIAL IV SCH ×2 (09:56→20:21)
[2021-02-18] MEDS: NOREPINEPHRINE BITARTRATE 8 MG in IV NORMAL SALINE 242 ML IV PRN (10:58)
[2021-02-18] MEDS: MORPHINE SULFATE 2 MG/1 ML DISP.SYRIN IV PRN (15:31)
[2021-02-18 15:44] LABS: ABG BASE EXCESS 1.4 mmol/L; ABG HCO3 25.2 mmol/L; ABG PCO2 36.1 mmHg (35.0-45.0); ABG PH 7.462 (7.350-7.450); ABG PO2 119.8 mmHg (75.0-100.0); ABG SITE RIGHT RADIAL; COHb 0.8 % (0.5-1.5); MetHb 0.3 % (0.0-1.5); O2Hb 97.1 % (94.0-97.0); VENT MODE VENT - A/C; VT, ABG 500 mL
[2021-02-18] MEDS: SEVELAMER CARBONATE 800 MG POWD.PACK GT SCH (18:34)
[2021-02-18] MEDS: ATORVASTATIN 40 MG TABLET NG SCH (20:22)
[2021-02-18] MEDS: INSULIN GLARGINE,HUM 300 UNITS/3 ML CARTRIDGE SQ SCH (21:47)
[2021-02-19] VITALS (33 sets, daily range): BP systolic 110–156; BP diastolic 53–73
[2021-02-19] MEDS: FENTANYL CITRATE/PF 1,000 MCG in IV NORMAL SALINE 80 ML IV PRN (00:58)
[2021-02-19 05:09] LABS: HEMATOCRIT 21.2 % (36.7-47.1); MEAN CORPUSCULAR HEMOGLOBIN 28.6 uug (23.8-33.4); MEAN CORPUSCULAR VOLUME 86.6 fL (73.0-96.2); PLATELET COUNT (AUTO) 341 K/uL (152-348)
[2021-02-19 05:20] LABS: CREATININE 4.1 mg/dL (0.6-1.3); MAGNESIUM 1.9 mg/dL (1.8-2.4); PHOSPHOROUS 5.9 mg/dL (2.5-4.9); POTASSIUM 4.1 mmol/L (3.5-5.1)
[2021-02-19] MEDS: MIDAZOLAM HCL 50 MG in IV NORMAL SALINE 40 ML IV PRN ×2 (05:40→19:35)
[2021-02-19] MEDS: BLOOD SUGAR DIAGNOSTIC 1 EACH STRIP VI SCH ×4 (05:40→23:32)
[2021-02-19] MEDS: INSULIN REGULAR, HUMAN 300 UNIT/3 ML VIAL SQ PRN ×4 (05:41→23:36)
[2021-02-19 07:44] LABS: ABG BASE EXCESS 2.8 mmol/L; ABG HCO3 26.6 mmol/L; ABG PCO2 37.2 mmHg (35.0-45.0); ABG PH 7.473 (7.350-7.450); ABG PO2 100.5 mmHg (75.0-100.0); ABG SITE RIGHT RADIAL; COHb 1.1 % (0.5-1.5); MetHb 0.2 % (0.0-1.5); O2Hb 96.3 % (94.0-97.0); VENT MODE VENT - A/C16; VT, ABG 500 mL
[2021-02-19] MEDS: DOCUSATE SODIUM 100 MG/10 ML LIQUID UDC NG SCH (09:00)
[2021-02-19] MEDS: FERROUS SULFATE 300 MG/5 ML LIQUID UDC NG SCH ×2 (09:30→17:59)
[2021-02-19] MEDS: ACIDOPHILUS/BULGARICUS CHEW TAB NG SCH ×2 (09:30→20:22)
[2021-02-19] MEDS: PANTOPRAZOLE SODIUM 40 MG VIAL IV SCH ×2 (09:30→20:22)
[2021-02-19] MEDS: SEVELAMER CARBONATE 800 MG POWD.PACK GT SCH ×3 (09:30→17:59)
[2021-02-19] MEDS: NUTRISOURCE FIBER 4 GM PACKET NG SCH ×3 (11:19→18:00)
[2021-02-19 17:39] LABS: HEMATOCRIT 22.1 % (36.7-47.1)
[2021-02-19] MEDS: MORPHINE SULFATE 2 MG/1 ML DISP.SYRIN IV PRN (18:03)
[2021-02-19] MEDS: IV NORMAL SALINE 250 ML IV PRN (18:37)
[2021-02-19] MEDS: ATORVASTATIN 40 MG TABLET NG SCH (20:22)
[2021-02-19] MEDS: INSULIN GLARGINE,HUM 300 UNITS/3 ML CARTRIDGE SQ SCH (20:54)
[2021-02-20] VITALS (37 sets, daily range): BP systolic 110–193; BP diastolic 43–93
[2021-02-20] MEDS: BLOOD SUGAR DIAGNOSTIC 1 EACH STRIP VI SCH ×5 (06:06→23:22)
[2021-02-20] MEDS: INSULIN REGULAR, HUMAN 300 UNIT/3 ML VIAL SQ PRN ×3 (06:08→23:23)
[2021-02-20] MEDS: MIDODRINE HCL 5 MG TABLET PO PRN (07:09)
[2021-02-20 07:29] LABS: MEAN CORPUSCULAR HEMOGLOBIN 29.4 uug (23.8-33.4); MEAN CORPUSCULAR VOLUME 86.8 fL (73.0-96.2); PLATELET COUNT (AUTO) 380 K/uL (152-348)
[2021-02-20 07:45] LABS: HEMATOCRIT 18.1 % (36.7-47.1)
[2021-02-20 07:58] LABS: ABG BASE EXCESS 1.8 mmol/L; ABG HCO3 25.9 mmol/L; ABG PCO2 37.6 mmHg (35.0-45.0); ABG PH 7.456 (7.350-7.450); ABG SITE RIGHT RADIAL; ABG TOTAL HEMOGLOBIN 5.8 G/dL (13.5-18.0); COHb 0.9 % (0.5-1.5); O2Hb 96.2 % (94.0-97.0); VENT MODE VENT - A/C; VT, ABG 500 mL
[2021-02-20] MEDS: PANTOPRAZOLE SODIUM 40 MG VIAL IV SCH ×2 (08:18→20:30)
[2021-02-20] MEDS: FERROUS SULFATE 300 MG/5 ML LIQUID UDC NG SCH ×2 (08:18→17:04)
[2021-02-20] MEDS: ACIDOPHILUS/BULGARICUS CHEW TAB NG SCH ×2 (08:18→20:30)
[2021-02-20] MEDS: DOCUSATE SODIUM 100 MG/10 ML LIQUID UDC NG SCH (08:19)
[2021-02-20] MEDS: SEVELAMER CARBONATE 800 MG POWD.PACK GT SCH ×3 (08:19→17:04)
[2021-02-20] MEDS: NUTRISOURCE FIBER 4 GM PACKET NG SCH ×3 (08:20→17:05)
[2021-02-20 08:23] LABS: CREATININE 5.7 mg/dL (0.6-1.3); PHOSPHOROUS 6.9 mg/dL (2.5-4.9); POTASSIUM 3.6 mmol/L (3.5-5.1)
[2021-02-20 09:51] LABS: EOSINOPHILS % (MANUAL) 2 % (0-8); LYMPHOCYTES % (MANUAL) 11 % (20-40); MONOCYTES % (MANUAL) 2 % (2-10); NEUTROPHILS % (MANUAL) 85 % (42-75)
[2021-02-20] MEDS: MIDAZOLAM HCL 50 MG in IV NORMAL SALINE 40 ML IV PRN (13:20)
[2021-02-20] MEDS: MORPHINE SULFATE 2 MG/1 ML DISP.SYRIN IV PRN (13:52)
[2021-02-20] MEDS: hydrALAZINE HCL 20 MG/1 ML VIAL IV PRN (18:35)
[2021-02-20] MEDS: IV NORMAL SALINE 250 ML IV PRN (19:58)
[2021-02-20] MEDS: ATORVASTATIN 40 MG TABLET NG SCH (20:30)
[2021-02-20] MEDS: INSULIN GLARGINE,HUM 300 UNITS/3 ML CARTRIDGE SQ SCH (20:32)
[2021-02-20 20:53] LABS: HEMATOCRIT 24.4 % (36.7-47.1)
[2021-02-21] VITALS (23 sets, daily range): BP systolic 96–170; BP diastolic 40–87
[2021-02-21] MEDS: MORPHINE SULFATE 2 MG/1 ML DISP.SYRIN IV PRN ×2 (04:34→09:43)
[2021-02-21 04:46] LABS: HEMATOCRIT 25.3 % (36.7-47.1); MEAN CORPUSCULAR HEMOGLOBIN 30.1 uug (23.8-33.4); MEAN CORPUSCULAR VOLUME 87.4 fL (73.0-96.2); PLATELET COUNT (AUTO) 471 K/uL (152-348)
[2021-02-21 04:55] LABS: BILIRUBIN,TOTAL 0.7 mg/dL (0.2-1.0); CREATININE 4.3 mg/dL (0.6-1.3); MAGNESIUM 1.9 mg/dL (1.8-2.4); PHOSPHOROUS 4.5 mg/dL (2.5-4.9); POTASSIUM 3.5 mmol/L (3.5-5.1); TOTAL PROTEIN, SERUM 6.8 g/dL (6.4-8.2)
[2021-02-21] MEDS: BLOOD SUGAR DIAGNOSTIC 1 EACH STRIP VI SCH ×4 (05:28→23:35)
[2021-02-21] MEDS: INSULIN REGULAR, HUMAN 300 UNIT/3 ML VIAL SQ PRN ×3 (05:28→23:37)
[2021-02-21 08:51] LABS: ABG BASE EXCESS 3.9 mmol/L; ABG HCO3 28.7 mmol/L; ABG PCO2 44.3 mmHg (35.0-45.0); ABG PH 7.429 (7.350-7.450); ABG PO2 62.1 mmHg (75.0-100.0); ABG SITE LEFT RADIAL; ABG TOTAL HEMOGLOBIN 8.9 G/dL (13.5-18.0); MetHb 0.2 % (0.0-1.5); O2Hb 90.6 % (94.0-97.0); VENT MODE VENT - SIMV; VT, ABG 500 mL
[2021-02-21] MEDS: FERROUS SULFATE 300 MG/5 ML LIQUID UDC NG SCH ×2 (08:57→17:12)
[2021-02-21] MEDS: PANTOPRAZOLE SODIUM 40 MG VIAL IV SCH (08:57)
[2021-02-21] MEDS: ACIDOPHILUS/BULGARICUS CHEW TAB NG SCH ×2 (08:57→21:05)
[2021-02-21] MEDS: DOCUSATE SODIUM 100 MG/10 ML LIQUID UDC NG SCH (08:57)
[2021-02-21] MEDS: SEVELAMER CARBONATE 800 MG POWD.PACK GT SCH ×3 (08:58→17:12)
[2021-02-21] MEDS: NUTRISOURCE FIBER 4 GM PACKET NG SCH ×3 (09:01→17:12)
[2021-02-21] MEDS: FENTANYL CITRATE/PF 1,000 MCG in IV NORMAL SALINE 80 ML IV PRN (13:01)
[2021-02-21 13:10] LABS: HEMATOCRIT 22.6 % (36.7-47.1)
[2021-02-21] MEDS: MIDAZOLAM HCL 50 MG in IV NORMAL SALINE 40 ML IV PRN (14:54)
[2021-02-21] MEDS: hydrALAZINE HCL 20 MG/1 ML VIAL IV PRN (15:08)
[2021-02-21] MEDS: ACETAMINOPHEN 650 MG/20.3 ML LIQUID UDC PO PRN (15:23)
[2021-02-21] MEDS: IV NORMAL SALINE 250 ML IV PRN (19:50)
[2021-02-21] MEDS: ATORVASTATIN 40 MG TABLET NG SCH (21:05)
[2021-02-21] MEDS: PANTOPRAZOLE ORAL SUSPENSION 40 MG SUSPDR.PKT NG SCH (21:05)
[2021-02-21] MEDS: INSULIN GLARGINE,HUM 300 UNITS/3 ML CARTRIDGE SQ SCH (21:11)
[2021-02-21 22:32] LABS: HEMATOCRIT 22.5 % (36.7-47.1)
[2021-02-22] VITALS (24 sets, daily range): BP systolic 106–159; BP diastolic 26–91
[2021-02-22] MEDS: MIDAZOLAM HCL 50 MG in IV NORMAL SALINE 40 ML IV PRN ×3 (00:03→18:52)
[2021-02-22 05:07] LABS: HEMATOCRIT 25.2 % (36.7-47.1); MEAN CORPUSCULAR HEMOGLOBIN 28.7 uug (23.8-33.4); MEAN CORPUSCULAR VOLUME 87.4 fL (73.0-96.2); PLATELET COUNT (AUTO) 459 K/uL (152-348)
[2021-02-22] MEDS: BLOOD SUGAR DIAGNOSTIC 1 EACH STRIP VI SCH ×4 (05:13→23:11)
[2021-02-22] MEDS: INSULIN REGULAR, HUMAN 300 UNIT/3 ML VIAL SQ PRN ×4 (05:14→23:13)
[2021-02-22 05:28] LABS: CREATININE 3.5 mg/dL (0.6-1.3); MAGNESIUM 2.1 mg/dL (1.8-2.4); POTASSIUM 3.6 mmol/L (3.5-5.1)
[2021-02-22] MEDS: FENTANYL CITRATE/PF 1,000 MCG in IV NORMAL SALINE 80 ML IV PRN (05:37)
[2021-02-22 07:57] LABS: ABG BASE EXCESS 5.9 mmol/L; ABG HCO3 29.2 mmol/L; ABG PCO2 37.2 mmHg (35.0-45.0); ABG PH 7.513 (7.350-7.450); ABG PO2 111.2 mmHg (75.0-100.0); ABG SITE RIGHT RADIAL; ABG TOTAL HEMOGLOBIN 8.1 G/dL (13.5-18.0); COHb 0.5 % (0.5-1.5); MetHb 0.1 % (0.0-1.5); O2Hb 97.6 % (94.0-97.0); VENT MODE VENT - A/C; VT, ABG 500 mL
[2021-02-22] MEDS: FERROUS SULFATE 300 MG/5 ML LIQUID UDC NG SCH ×2 (08:06→17:09)
[2021-02-22] MEDS: NUTRISOURCE FIBER 4 GM PACKET NG SCH ×3 (08:06→17:06)
[2021-02-22] MEDS: PANTOPRAZOLE ORAL SUSPENSION 40 MG SUSPDR.PKT NG SCH ×2 (08:06→20:17)
[2021-02-22] MEDS: DOCUSATE SODIUM 100 MG/10 ML LIQUID UDC NG SCH (08:06)
[2021-02-22] MEDS: SEVELAMER CARBONATE 800 MG POWD.PACK GT SCH ×3 (08:06→17:09)
[2021-02-22] MEDS: ACIDOPHILUS/BULGARICUS CHEW TAB NG SCH ×2 (08:06→20:17)
[2021-02-22] MEDS: ACETAMINOPHEN 650 MG/20.3 ML LIQUID UDC PO PRN (11:54)
[2021-02-22] MEDS: ATORVASTATIN 40 MG TABLET NG SCH (20:17)
[2021-02-22] MEDS: INSULIN GLARGINE,HUM 300 UNITS/3 ML CARTRIDGE SQ SCH (21:07)
[2021-02-22] MEDS: IV NORMAL SALINE 250 ML IV PRN (23:14)
[2021-02-23] VITALS (26 sets, daily range): BP systolic 108–179; BP diastolic 58–93
[2021-02-23] MEDS: FENTANYL CITRATE/PF 1,000 MCG in IV NORMAL SALINE 80 ML IV PRN ×2 (01:17→20:04)
[2021-02-23] MEDS: MIDAZOLAM HCL 50 MG in IV NORMAL SALINE 40 ML IV PRN ×3 (01:19→22:27)
[2021-02-23 05:10] LABS: HEMATOCRIT 22.2 % (36.7-47.1); MEAN CORPUSCULAR HEMOGLOBIN 29.5 uug (23.8-33.4); MEAN CORPUSCULAR VOLUME 87.5 fL (73.0-96.2); PLATELET COUNT (AUTO) 478 K/uL (152-348)
[2021-02-23 05:22] LABS: CREATININE 5.1 mg/dL (0.6-1.3); MAGNESIUM 2.2 mg/dL (1.8-2.4); POTASSIUM 3.3 mmol/L (3.5-5.1)
[2021-02-23] MEDS: BLOOD SUGAR DIAGNOSTIC 1 EACH STRIP VI SCH ×3 (05:30→17:11)
[2021-02-23] MEDS: INSULIN REGULAR, HUMAN 300 UNIT/3 ML VIAL SQ PRN (05:32)
[2021-02-23] MEDS: DOCUSATE SODIUM 100 MG/10 ML LIQUID UDC NG SCH (08:42)
[2021-02-23] MEDS: FERROUS SULFATE 300 MG/5 ML LIQUID UDC NG SCH ×2 (08:43→17:00)
[2021-02-23] MEDS: SEVELAMER CARBONATE 800 MG POWD.PACK GT SCH ×3 (08:43→17:00)
[2021-02-23] MEDS: PANTOPRAZOLE ORAL SUSPENSION 40 MG SUSPDR.PKT NG SCH ×2 (08:44→20:07)
[2021-02-23] MEDS: NUTRISOURCE FIBER 4 GM PACKET NG SCH ×3 (08:44→17:00)
[2021-02-23] MEDS: ACIDOPHILUS/BULGARICUS CHEW TAB NG SCH ×2 (08:44→20:07)
[2021-02-23] MEDS ORDERED: POTASSIUM CHLORIDE 20 MEQ POWDER PACKET GT ONE (09:45)
[2021-02-23] MEDS ORDERED: LIDOCAINE-MPF 2% 5 ML VIAL IJ ONE (11:15)
[2021-02-23] MEDS ORDERED: PROPOFOL 200 MG/20 ML BOTTLE IV ONE (11:15)
[2021-02-23] MEDS ORDERED: CEFAZOLIN 1 G VIAL IV ONE (11:15)
[2021-02-23] MEDS: MORPHINE SULFATE 2 MG/1 ML DISP.SYRIN IV PRN (12:57)
[2021-02-23] MEDS: hydrALAZINE HCL 20 MG/1 ML VIAL IV PRN (13:20)
[2021-02-23] MEDS ORDERED: IV D5/ 0.9% NACL 1,000 ML IV PRN (18:00)
[2021-02-23] MEDS: ATORVASTATIN 40 MG TABLET NG SCH (20:07)
[2021-02-23] MEDS: METOPROLOL TARTRATE 25 MG TABLET PO SCH (20:07)
[2021-02-23] MEDS: INSULIN GLARGINE,HUM 300 UNITS/3 ML CARTRIDGE SQ SCH (20:12)
[2021-02-24] VITALS (24 sets, daily range): BP systolic 100–146; BP diastolic 48–73
[2021-02-24] MEDS: BLOOD SUGAR DIAGNOSTIC 1 EACH STRIP VI SCH ×4 (00:22→17:08)
[2021-02-24] MEDS: INSULIN REGULAR, HUMAN 300 UNIT/3 ML VIAL SQ PRN ×2 (00:23→05:32)
[2021-02-24] MEDS: ACETAMINOPHEN 650 MG/20.3 ML LIQUID UDC PO PRN (04:31)
[2021-02-24 05:01] LABS: HEMATOCRIT 26.2 % (36.7-47.1); MEAN CORPUSCULAR HEMOGLOBIN 29.1 uug (23.8-33.4); MEAN CORPUSCULAR VOLUME 86.3 fL (73.0-96.2); PLATELET COUNT (AUTO) 445 K/uL (152-348)
[2021-02-24 05:14] LABS: CREATININE 3.8 mg/dL (0.6-1.3); MAGNESIUM 1.8 mg/dL (1.8-2.4); PHOSPHOROUS 4.1 mg/dL (2.5-4.9); POTASSIUM 3.6 mmol/L (3.5-5.1)
[2021-02-24] MEDS: MIDAZOLAM HCL 50 MG in IV NORMAL SALINE 40 ML IV PRN ×2 (06:18→15:31)
[2021-02-24 06:22] LABS: ABG BASE EXCESS 8.6 mmol/L; ABG HCO3 30.5 mmol/L; ABG PCO2 31.3 mmHg (35.0-45.0); ABG PH 7.606 (7.350-7.450); ABG PO2 105.3 mmHg (75.0-100.0); ABG SITE RIGHT BRACHIAL; ABG TOTAL HEMOGLOBIN 8.4 G/dL (13.5-18.0); COHb 0.3 % (0.5-1.5); MetHb 0.1 % (0.0-1.5); O2Hb 97.7 % (94.0-97.0); VENT MODE VENT - A/C; VT, ABG 500 mL
[2021-02-24] MEDS: SEVELAMER CARBONATE 800 MG POWD.PACK GT SCH ×3 (08:32→17:31)
[2021-02-24] MEDS: DOCUSATE SODIUM 100 MG/10 ML LIQUID UDC NG SCH (08:33)
[2021-02-24] MEDS: PANTOPRAZOLE ORAL SUSPENSION 40 MG SUSPDR.PKT NG SCH ×2 (08:33→20:49)
[2021-02-24] MEDS: METOPROLOL TARTRATE 25 MG TABLET PO SCH ×2 (08:33→21:00)
[2021-02-24] MEDS: ACIDOPHILUS/BULGARICUS CHEW TAB NG SCH ×2 (08:33→20:49)
[2021-02-24] MEDS: FERROUS SULFATE 300 MG/5 ML LIQUID UDC NG SCH ×2 (08:33→17:31)
[2021-02-24] MEDS: NUTRISOURCE FIBER 4 GM PACKET NG SCH ×3 (08:35→17:31)
[2021-02-24] MEDS: FENTANYL CITRATE/PF 1,000 MCG in IV NORMAL SALINE 80 ML IV PRN (09:26)
[2021-02-24] MEDS: ATORVASTATIN 40 MG TABLET NG SCH (20:49)
[2021-02-24] MEDS: INSULIN GLARGINE,HUM 300 UNITS/3 ML CARTRIDGE SQ SCH (20:52)
[2021-02-25] VITALS (23 sets, daily range): BP systolic 83–182; BP diastolic 40–87
[2021-02-25] MEDS: MIDAZOLAM HCL 50 MG in IV NORMAL SALINE 40 ML IV PRN ×3 (00:01→18:00)
[2021-02-25] MEDS: BLOOD SUGAR DIAGNOSTIC 1 EACH STRIP VI SCH ×4 (00:10→17:25)
[2021-02-25] MEDS: FENTANYL CITRATE/PF 1,000 MCG in IV NORMAL SALINE 80 ML IV PRN ×2 (01:01→13:36)
[2021-02-25 05:17] LABS: HEMATOCRIT 25.1 % (36.7-47.1); MEAN CORPUSCULAR HEMOGLOBIN 29.1 uug (23.8-33.4); MEAN CORPUSCULAR VOLUME 87.5 fL (73.0-96.2); PLATELET COUNT (AUTO) 451 K/uL (152-348)
[2021-02-25 05:33] LABS: BILIRUBIN,TOTAL 0.4 mg/dL (0.2-1.0); CREATININE 5.5 mg/dL (0.6-1.3); MAGNESIUM 2.1 mg/dL (1.8-2.4); PHOSPHOROUS 5.5 mg/dL (2.5-4.9); TOTAL PROTEIN, SERUM 6.9 g/dL (6.4-8.2)
[2021-02-25] MEDS ORDERED: ALBUTEROL SULFATE 8 GM HFA.AER.AD ONE (06:45)
[2021-02-25] MEDS ORDERED: ROCURONIUM BROMIDE 50 MG/5 ML VIAL ONE (06:46)
[2021-02-25] MEDS ORDERED: ETOMIDATE 20 MG/10 ML VIAL IV ONE (07:35)
[2021-02-25] MEDS ORDERED: PHENYLEPHRINE 10 MG/1 ML VIAL IV ONE (07:35)
[2021-02-25] MEDS ORDERED: SEVOFLURANE 250 ML BOTTLE IH ONE (07:35)
[2021-02-25] MEDS: PANTOPRAZOLE ORAL SUSPENSION 40 MG SUSPDR.PKT NG SCH ×2 (08:56→20:27)
[2021-02-25] MEDS: DOCUSATE SODIUM 100 MG/10 ML LIQUID UDC NG SCH (08:58)
[2021-02-25] MEDS: ACIDOPHILUS/BULGARICUS CHEW TAB NG SCH ×2 (08:58→20:27)
[2021-02-25] MEDS: FERROUS SULFATE 300 MG/5 ML LIQUID UDC NG SCH ×2 (08:58→17:18)
[2021-02-25] MEDS: METOPROLOL TARTRATE 25 MG TABLET PO SCH ×2 (08:58→20:27)
[2021-02-25] MEDS: SEVELAMER CARBONATE 800 MG POWD.PACK GT SCH ×3 (08:59→17:19)
[2021-02-25] MEDS: NUTRISOURCE FIBER 4 GM PACKET NG SCH ×3 (08:59→17:19)
[2021-02-25] MEDS: ACETAMINOPHEN 650 MG/20.3 ML LIQUID UDC PO PRN (09:12)
[2021-02-25] MEDS: hydrALAZINE HCL 20 MG/1 ML VIAL IV PRN ×2 (09:31→21:15)
[2021-02-25] MEDS: MORPHINE SULFATE 2 MG/1 ML DISP.SYRIN IV PRN (11:15)
[2021-02-25] MEDS: MIDODRINE HCL 5 MG TABLET PO PRN (12:35)
[2021-02-25] MEDS: ATORVASTATIN 40 MG TABLET NG SCH (20:27)
[2021-02-25] MEDS: INSULIN GLARGINE,HUM 300 UNITS/3 ML CARTRIDGE SQ SCH (20:29)
[2021-02-25] MEDS: HYDROCODONE/APAP 5-325MG TABLET PO PRN (22:17)
[2021-02-26] VITALS (23 sets, daily range): BP systolic 98–163; BP diastolic 51–88
[2021-02-26] MEDS: BLOOD SUGAR DIAGNOSTIC 1 EACH STRIP VI SCH ×4 (00:21→17:07)
[2021-02-26] MEDS: INSULIN REGULAR, HUMAN 300 UNIT/3 ML VIAL SQ PRN ×3 (00:23→17:08)
[2021-02-26] MEDS: FENTANYL CITRATE/PF 1,000 MCG in IV NORMAL SALINE 80 ML IV PRN (03:01)
[2021-02-26] MEDS: HYDROCODONE/APAP 5-325MG TABLET PO PRN ×2 (04:11→12:59)
[2021-02-26 06:42] LABS: HEMATOCRIT 27.3 % (36.7-47.1); MEAN CORPUSCULAR HEMOGLOBIN 29.3 uug (23.8-33.4); MEAN CORPUSCULAR VOLUME 87.3 fL (73.0-96.2); PLATELET COUNT (AUTO) 387 K/uL (152-348)
[2021-02-26 06:51] LABS: MAGNESIUM 1.9 mg/dL (1.8-2.4); PHOSPHOROUS 4.5 mg/dL (2.5-4.9); POTASSIUM 3.8 mmol/L (3.5-5.1)
[2021-02-26] MEDS: FUROSEMIDE 40 MG/4 ML VIAL IV SCH (08:06)
[2021-02-26] MEDS: FERROUS SULFATE 300 MG/5 ML LIQUID UDC NG SCH ×2 (08:06→17:03)
[2021-02-26] MEDS: ACIDOPHILUS/BULGARICUS CHEW TAB NG SCH ×2 (08:06→20:26)
[2021-02-26] MEDS: PANTOPRAZOLE ORAL SUSPENSION 40 MG SUSPDR.PKT NG SCH ×2 (08:07→20:26)
[2021-02-26] MEDS: NUTRISOURCE FIBER 4 GM PACKET NG SCH ×3 (08:08→17:04)
[2021-02-26] MEDS: DOCUSATE SODIUM 100 MG/10 ML LIQUID UDC NG SCH (08:09)
[2021-02-26] MEDS: METOPROLOL TARTRATE 25 MG TABLET PO SCH ×2 (08:15→20:26)
[2021-02-26] MEDS ORDERED: EPOETIN ALFA 10,000 UNITS/ML VIAL SQ ONE (08:15)
[2021-02-26] MEDS: SEVELAMER CARBONATE 800 MG POWD.PACK GT SCH ×3 (08:18→17:03)
[2021-02-26 08:31] LABS: ABG HCO3 32.8 mmol/L; ABG PCO2 47.5 mmHg (35.0-45.0); ABG PH 7.457 (7.350-7.450); ABG PO2 104.4 mmHg (75.0-100.0); ABG SITE RIGHT RADIAL; ABG TOTAL HEMOGLOBIN 9.2 G/dL (13.5-18.0); COHb 0.2 % (0.5-1.5); MetHb 0.1 % (0.0-1.5); O2Hb 97.7 % (94.0-97.0); VENT MODE VENT - A/C; VT, ABG 500 mL
[2021-02-26] MEDS ORDERED: EPOETIN ALFA-EPBX 10,000 UNIT/ML VIAL SQ ONE (09:00)
[2021-02-26] MEDS: ASPIRIN 81 MG TAB.CHEW GT SCH (12:05)
[2021-02-26] MEDS: hydrALAZINE HCL 20 MG/1 ML VIAL IV PRN (12:16)
[2021-02-26] MEDS: NEPRO 1000 ML GT PRN (17:15)
[2021-02-26] MEDS: ATORVASTATIN 40 MG TABLET NG SCH (20:26)
[2021-02-26] MEDS: ACETAMINOPHEN 650 MG/20.3 ML LIQUID UDC PO PRN (21:18)
[2021-02-26] MEDS: INSULIN GLARGINE,HUM 300 UNITS/3 ML CARTRIDGE SQ SCH (21:23)
[2021-02-27] VITALS (24 sets, daily range): BP systolic 103–168; BP diastolic 49–85
[2021-02-27] MEDS: BLOOD SUGAR DIAGNOSTIC 1 EACH STRIP VI SCH ×4 (02:35→17:15)
[2021-02-27] MEDS: INSULIN REGULAR, HUMAN 300 UNIT/3 ML VIAL SQ PRN ×4 (02:36→17:46)
[2021-02-27 05:37] LABS: HEMATOCRIT 25.2 % (36.7-47.1); MEAN CORPUSCULAR HEMOGLOBIN 29.3 uug (23.8-33.4); MEAN CORPUSCULAR VOLUME 87.2 fL (73.0-96.2); PLATELET COUNT (AUTO) 447 K/uL (152-348)
[2021-02-27 05:50] LABS: CREATININE 5.2 mg/dL (0.6-1.3); MAGNESIUM 2.2 mg/dL (1.8-2.4); PHOSPHOROUS 5.1 mg/dL (2.5-4.9); POTASSIUM 3.7 mmol/L (3.5-5.1)
[2021-02-27] MEDS: PANTOPRAZOLE ORAL SUSPENSION 40 MG SUSPDR.PKT NG SCH ×2 (08:00→20:18)
[2021-02-27] MEDS: FUROSEMIDE 40 MG/4 ML VIAL IV SCH (08:00)
[2021-02-27] MEDS: ASPIRIN 81 MG TAB.CHEW GT SCH (08:00)
[2021-02-27] MEDS: NUTRISOURCE FIBER 4 GM PACKET NG SCH ×3 (08:01→17:16)
[2021-02-27] MEDS: ACIDOPHILUS/BULGARICUS CHEW TAB NG SCH ×2 (08:01→20:18)
[2021-02-27] MEDS: SEVELAMER CARBONATE 800 MG POWD.PACK GT SCH ×3 (08:01→17:17)
[2021-02-27] MEDS: FERROUS SULFATE 300 MG/5 ML LIQUID UDC NG SCH ×2 (08:01→17:16)
[2021-02-27] MEDS: METOPROLOL TARTRATE 25 MG TABLET PO SCH ×2 (08:02→20:19)
[2021-02-27] MEDS: DOCUSATE SODIUM 100 MG/10 ML LIQUID UDC NG SCH (08:20)
[2021-02-27] MEDS: Z GUARD REMEDY PASTE 57 GM TUBE TOP SCH ×2 (08:20→20:19)
[2021-02-27] MEDS: MORPHINE SULFATE 2 MG/1 ML DISP.SYRIN IV PRN (09:35)
[2021-02-27] MEDS: HYDROCODONE/APAP 5-325MG TABLET PO PRN (11:48)
[2021-02-27] MEDS: ACETAMINOPHEN 650 MG/20.3 ML LIQUID UDC PO PRN (11:50)
[2021-02-27] MEDS: ATORVASTATIN 40 MG TABLET NG SCH (20:18)
[2021-02-27] MEDS ORDERED: IV D5/ 0.9% NACL 1,000 ML IV ONE (20:45)
[2021-02-27] MEDS: INSULIN GLARGINE,HUM 300 UNITS/3 ML CARTRIDGE SQ SCH (20:47)
[2021-02-28] VITALS (24 sets, daily range): BP systolic 86–167; BP diastolic 45–92
[2021-02-28] MEDS: BLOOD SUGAR DIAGNOSTIC 1 EACH STRIP VI SCH ×4 (00:58→17:38)
[2021-02-28 05:11] LABS: HEMATOCRIT 24.4 % (36.7-47.1); MEAN CORPUSCULAR HEMOGLOBIN 29.3 uug (23.8-33.4); MEAN CORPUSCULAR VOLUME 86.7 fL (73.0-96.2); PLATELET COUNT (AUTO) 451 K/uL (152-348)
[2021-02-28 05:22] LABS: POTASSIUM 2.9 mmol/L (3.5-5.1)
[2021-02-28] MEDS: INSULIN REGULAR, HUMAN 300 UNIT/3 ML VIAL SQ PRN ×2 (06:22→11:38)
[2021-02-28] MEDS: ACETAMINOPHEN 650 MG/20.3 ML LIQUID UDC PO PRN (07:18)
[2021-02-28] MEDS: PANTOPRAZOLE ORAL SUSPENSION 40 MG SUSPDR.PKT NG SCH ×2 (08:23→20:09)
[2021-02-28] MEDS: ACIDOPHILUS/BULGARICUS CHEW TAB NG SCH ×2 (08:23→20:09)
[2021-02-28] MEDS: FERROUS SULFATE 300 MG/5 ML LIQUID UDC NG SCH ×2 (08:23→17:39)
[2021-02-28] MEDS: ASPIRIN 81 MG TAB.CHEW GT SCH (08:23)
[2021-02-28] MEDS: FUROSEMIDE 40 MG/4 ML VIAL IV SCH (08:24)
[2021-02-28] MEDS: METOPROLOL TARTRATE 25 MG TABLET PO SCH ×2 (08:26→20:09)
[2021-02-28] MEDS: Z GUARD REMEDY PASTE 57 GM TUBE TOP SCH ×2 (08:26→20:27)
[2021-02-28] MEDS: DOCUSATE SODIUM 100 MG/10 ML LIQUID UDC NG SCH (08:27)
[2021-02-28] MEDS: NUTRISOURCE FIBER 4 GM PACKET NG SCH ×3 (08:27→17:38)
[2021-02-28] MEDS: SEVELAMER CARBONATE 800 MG POWD.PACK GT SCH ×3 (08:28→17:39)
[2021-02-28] MEDS: POTASSIUM CHLORIDE 50 ML IV SCH ×2 (09:53→11:02)
[2021-02-28 09:59] LABS: *BILIRUBIN,URIN 1+ (NEGATIVE); *BLOOD, URINE 3+ (NEGATIVE); *CLARITY,URINE CLEAR (CLEAR); *COLOR,URINE YELLOW (YELLOW); *KETONES,URINE TRACE (NEGATIVE); *UROBILINOGEN,URINE 0.2 E.U./dl (NORMAL); LEUKOCYTE ESTERASE ,URINE 1+ (NEGATIVE); NITRITE, URINE NEGATIVE (NEGATIVE); UGLUCOSE NEGATIVE (NEGATIVE)
[2021-02-28] MEDS ORDERED: VANCOMYCIN IV 1,250 MG in IV DEXTROSE 5% 250 ML IV ONE (11:00)
[2021-02-28] MEDS: MORPHINE SULFATE 2 MG/1 ML DISP.SYRIN IV PRN ×2 (11:39→17:33)
[2021-02-28] MEDS ORDERED: CEFAZOLIN 1 G VIAL IM ONE (12:00)
[2021-02-28] MEDS: MEROPENEM 500 MG in IV NORMAL SALINE 50 ML IV SCH (12:28)
[2021-02-28 12:59] LABS: BACTERIA,URINE MODERATE /HPF (NONE SEEN); SQUAMOUS EPITHELIAL CELL,UR FEW /HPF (NONE SEEN); WBC,URINE 20-50 /HPF (0-3); YEAST,URINE RARE /HPF (NONE SEEN)
[2021-02-28] MEDS: hydrALAZINE HCL 20 MG/1 ML VIAL IV PRN (13:07)
[2021-02-28] MEDS ORDERED: LIDOCAINE HCL 2% 20 ML VIAL ONE (14:58)
[2021-02-28] MEDS ORDERED: IOPAMIDOL 15 ML VIAL IT ONE (14:59)
[2021-02-28] MEDS ORDERED: HEPARIN/NS 500 ML ONE (14:59)
[2021-02-28] MEDS ORDERED: HEPARIN SODIUM,PORCINE 1,000 UNITS/ML VIAL ONE (15:00)
[2021-02-28] MEDS ORDERED: MIDAZOLAM HCL 2 MG/2 ML VIAL ONE (16:34)
[2021-02-28] MEDS ORDERED: ROCURONIUM BROMIDE 50 MG/5 ML VIAL ONE (16:34)
[2021-02-28] MEDS: NEPRO 1000 ML GT PRN (20:08)
[2021-02-28] MEDS: ATORVASTATIN 40 MG TABLET NG SCH (20:09)
[2021-02-28] MEDS: INSULIN GLARGINE,HUM 300 UNITS/3 ML CARTRIDGE SQ SCH (20:12)
[2021-03-01] VITALS (23 sets, daily range): BP systolic 104–155; BP diastolic 45–90
[2021-03-01] MEDS: MORPHINE SULFATE 2 MG/1 ML DISP.SYRIN IV PRN ×3 (00:14→15:46)
[2021-03-01] MEDS: BLOOD SUGAR DIAGNOSTIC 1 EACH STRIP VI SCH ×4 (00:20→17:52)
[2021-03-01] MEDS: INSULIN REGULAR, HUMAN 300 UNIT/3 ML VIAL SQ PRN ×3 (00:21→17:49)
[2021-03-01 05:06] LABS: HEMATOCRIT 23.1 % (36.7-47.1); MEAN CORPUSCULAR VOLUME 87.4 fL (73.0-96.2); PLATELET COUNT (AUTO) 481 K/uL (152-348)
[2021-03-01 05:21] LABS: BILIRUBIN,DIRECT 0.2 mg/dL (0.0-0.2); BILIRUBIN,TOTAL 0.4 mg/dL (0.2-1.0); CREATININE 4.6 mg/dL (0.6-1.3); PHOSPHOROUS 3.9 mg/dL (2.5-4.9); POTASSIUM 3.5 mmol/L (3.5-5.1)
[2021-03-01 05:25] LABS: VANCOMYCIN,RANDOM 25.6 ug/mL (18.0-26.0)
[2021-03-01] MEDS: ASPIRIN 81 MG TAB.CHEW GT SCH (08:09)
[2021-03-01] MEDS: METOPROLOL TARTRATE 25 MG TABLET PO SCH ×2 (08:10→21:01)
[2021-03-01] MEDS: DOCUSATE SODIUM 100 MG/10 ML LIQUID UDC NG SCH (08:10)
[2021-03-01] MEDS: PANTOPRAZOLE ORAL SUSPENSION 40 MG SUSPDR.PKT NG SCH ×2 (08:10→21:01)
[2021-03-01] MEDS: FERROUS SULFATE 300 MG/5 ML LIQUID UDC NG SCH ×2 (08:10→16:58)
[2021-03-01] MEDS: ACIDOPHILUS/BULGARICUS CHEW TAB NG SCH ×2 (08:10→21:01)
[2021-03-01] MEDS: Z GUARD REMEDY PASTE 57 GM TUBE TOP SCH ×2 (08:11→21:02)
[2021-03-01] MEDS: NUTRISOURCE FIBER 4 GM PACKET NG SCH ×3 (08:12→16:59)
[2021-03-01] MEDS: SEVELAMER CARBONATE 800 MG POWD.PACK GT SCH ×3 (08:12→16:58)
[2021-03-01] MEDS: MEROPENEM 500 MG in IV NORMAL SALINE 50 ML IV SCH (12:03)
[2021-03-01] MEDS: ATORVASTATIN 40 MG TABLET NG SCH (21:01)
[2021-03-01] MEDS: INSULIN GLARGINE,HUM 300 UNITS/3 ML CARTRIDGE SQ SCH (21:31)
[2021-03-02] VITALS (27 sets, daily range): BP systolic 60–167; BP diastolic 29–82
[2021-03-02] MEDS: INSULIN REGULAR, HUMAN 300 UNIT/3 ML VIAL SQ PRN ×5 (00:52→23:36)
[2021-03-02] MEDS: BLOOD SUGAR DIAGNOSTIC 1 EACH STRIP VI SCH ×5 (00:56→23:35)
[2021-03-02] MEDS: hydrALAZINE HCL 20 MG/1 ML VIAL IV PRN (01:43)
[2021-03-02 05:05] LABS: HEMATOCRIT 25.3 % (36.7-47.1); MEAN CORPUSCULAR HEMOGLOBIN 29.2 uug (23.8-33.4); MEAN CORPUSCULAR VOLUME 86.9 fL (73.0-96.2); PLATELET COUNT (AUTO) 486 K/uL (152-348)
[2021-03-02 05:21] LABS: CREATININE 5.6 mg/dL (0.6-1.3); MAGNESIUM 2.2 mg/dL (1.8-2.4); PHOSPHOROUS 3.9 mg/dL (2.5-4.9); POTASSIUM 3.4 mmol/L (3.5-5.1)
[2021-03-02] MEDS: NOREPINEPHRINE BITARTRATE 8 MG in IV NORMAL SALINE 242 ML IV PRN (06:22)
[2021-03-02] MEDS: PANTOPRAZOLE ORAL SUSPENSION 40 MG SUSPDR.PKT NG SCH ×2 (08:44→20:03)
[2021-03-02] MEDS: FERROUS SULFATE 300 MG/5 ML LIQUID UDC NG SCH ×2 (08:44→16:15)
[2021-03-02] MEDS: ASPIRIN 81 MG TAB.CHEW GT SCH (08:44)
[2021-03-02] MEDS: ACIDOPHILUS/BULGARICUS CHEW TAB NG SCH ×2 (08:44→20:03)
[2021-03-02] MEDS: SEVELAMER CARBONATE 800 MG POWD.PACK GT SCH ×3 (08:45→16:14)
[2021-03-02] MEDS: Z GUARD REMEDY PASTE 57 GM TUBE TOP SCH ×2 (08:46→20:03)
[2021-03-02] MEDS: NUTRISOURCE FIBER 4 GM PACKET NG SCH ×3 (08:48→16:15)
[2021-03-02] MEDS: DOCUSATE SODIUM 100 MG/10 ML LIQUID UDC NG SCH (08:48)
[2021-03-02] MEDS: METOPROLOL TARTRATE 25 MG TABLET PO SCH ×2 (08:59→20:03)
[2021-03-02] MEDS ORDERED: POTASSIUM CHLORIDE 50 ML IV SCH (10:00)
[2021-03-02 10:25] LABS: ABG BASE EXCESS 5.5 mmol/L; ABG HCO3 27.4 mmol/L; ABG PCO2 29.9 mmHg (35.0-45.0); ABG PO2 135.6 mmHg (75.0-100.0); ABG SITE RIGHT RADIAL; ABG TOTAL HEMOGLOBIN 9.1 G/dL (13.5-18.0); COHb 0.2 % (0.5-1.5); MetHb 0.3 % (0.0-1.5); O2Hb 98.8 % (94.0-97.0); VENT MODE VENT - CPAP - PS 8
[2021-03-02] MEDS ORDERED: VANCOMYCIN IV 500 MG in IV DEXTROSE 5% 100 ML IV ONE (12:00)
[2021-03-02] MEDS: MEROPENEM 500 MG in IV NORMAL SALINE 50 ML IV SCH (12:28)
[2021-03-02] MEDS: MORPHINE SULFATE 2 MG/1 ML DISP.SYRIN IV PRN (12:33)
[2021-03-02] MEDS: HYDROCODONE/APAP 5-325MG TABLET PO PRN (16:13)
[2021-03-02] MEDS: ATORVASTATIN 40 MG TABLET NG SCH (20:03)
[2021-03-02] MEDS: INSULIN GLARGINE,HUM 300 UNITS/3 ML CARTRIDGE SQ SCH (20:10)
[2021-03-03] VITALS (24 sets, daily range): BP systolic 100–162; BP diastolic 50–86
[2021-03-03] MEDS: HYDROCODONE/APAP 5-325MG TABLET PO PRN ×3 (00:30→22:37)
[2021-03-03] MEDS: NEPRO 1000 ML GT PRN (01:02)
[2021-03-03 04:56] LABS: HEMATOCRIT 24.9 % (36.7-47.1); MEAN CORPUSCULAR HEMOGLOBIN 30.3 uug (23.8-33.4); PLATELET COUNT (AUTO) 467 K/uL (152-348)
[2021-03-03 05:05] LABS: CREATININE 4.9 mg/dL (0.6-1.3); MAGNESIUM 2.2 mg/dL (1.8-2.4); PHOSPHOROUS 3.2 mg/dL (2.5-4.9); POTASSIUM 3.9 mmol/L (3.5-5.1)
[2021-03-03] MEDS: BLOOD SUGAR DIAGNOSTIC 1 EACH STRIP VI SCH ×3 (05:28→17:38)
[2021-03-03] MEDS: INSULIN REGULAR, HUMAN 300 UNIT/3 ML VIAL SQ PRN ×3 (05:30→17:38)
[2021-03-03] MEDS: IV NORMAL SALINE 250 ML IV PRN (07:07)
[2021-03-03] MEDS: MORPHINE SULFATE 2 MG/1 ML DISP.SYRIN IV PRN (07:11)
[2021-03-03] MEDS: ASPIRIN 81 MG TAB.CHEW GT SCH (08:52)
[2021-03-03] MEDS: FERROUS SULFATE 300 MG/5 ML LIQUID UDC NG SCH ×2 (08:52→17:31)
[2021-03-03] MEDS: METOPROLOL TARTRATE 25 MG TABLET PO SCH ×2 (08:52→21:01)
[2021-03-03] MEDS: ACIDOPHILUS/BULGARICUS CHEW TAB NG SCH ×2 (08:52→20:51)
[2021-03-03] MEDS: PANTOPRAZOLE ORAL SUSPENSION 40 MG SUSPDR.PKT NG SCH ×2 (08:52→20:51)
[2021-03-03] MEDS: NUTRISOURCE FIBER 4 GM PACKET NG SCH ×3 (08:53→17:31)
[2021-03-03] MEDS: SEVELAMER CARBONATE 800 MG POWD.PACK GT SCH ×3 (08:54→17:30)
[2021-03-03] MEDS: DOCUSATE SODIUM 100 MG/10 ML LIQUID UDC NG SCH (08:54)
[2021-03-03] MEDS: Z GUARD REMEDY PASTE 57 GM TUBE TOP SCH ×2 (08:55→20:53)
[2021-03-03] MEDS: MEROPENEM 500 MG in IV NORMAL SALINE 50 ML IV SCH (13:38)
[2021-03-03] MEDS: hydrALAZINE HCL 20 MG/1 ML VIAL IV PRN (18:27)
[2021-03-03] MEDS: ATORVASTATIN 40 MG TABLET NG SCH (20:51)
[2021-03-03] MEDS: INSULIN GLARGINE,HUM 300 UNITS/3 ML CARTRIDGE SQ SCH (20:56)
[2021-03-04] VITALS (13 sets, daily range): BP systolic 99–160; BP diastolic 47–77
[2021-03-04] MEDS: BLOOD SUGAR DIAGNOSTIC 1 EACH STRIP VI SCH ×5 (00:30→23:14)
[2021-03-04] MEDS: INSULIN REGULAR, HUMAN 300 UNIT/3 ML VIAL SQ PRN ×4 (00:31→23:15)
[2021-03-04] MEDS: NEPRO 1000 ML GT PRN (01:39)
[2021-03-04] MEDS: HYDROCODONE/APAP 5-325MG TABLET PO PRN ×3 (04:29→23:52)
[2021-03-04 04:55] LABS: HEMATOCRIT 24.3 % (36.7-47.1); MEAN CORPUSCULAR HEMOGLOBIN 29.3 uug (23.8-33.4); MEAN CORPUSCULAR VOLUME 85.9 fL (73.0-96.2); PLATELET COUNT (AUTO) 527 K/uL (152-348)
[2021-03-04 05:03] LABS: CREATININE 5.3 mg/dL (0.6-1.3); MAGNESIUM 2.1 mg/dL (1.8-2.4); PHOSPHOROUS 1.7 mg/dL (2.5-4.9); POTASSIUM 3.4 mmol/L (3.5-5.1)
[2021-03-04 07:49] LABS: ABG HCO3 28.2 mmol/L; ABG PCO2 22.2 mmHg (35.0-45.0); ABG PH 7.722 (7.350-7.450); ABG PO2 139.3 mmHg (75.0-100.0); ABG SITE LEFT RADIAL; ABG TOTAL HEMOGLOBIN 9.7 G/dL (13.5-18.0); COHb 0.3 % (0.5-1.5); O2Hb 98.7 % (94.0-97.0); VENT MODE CPAP
[2021-03-04] MEDS: MEROPENEM 500 MG in IV NORMAL SALINE 50 ML IV SCH (07:53)
[2021-03-04] MEDS: DOCUSATE SODIUM 100 MG/10 ML LIQUID UDC NG SCH (07:55)
[2021-03-04] MEDS: FERROUS SULFATE 300 MG/5 ML LIQUID UDC NG SCH ×2 (07:55→17:13)
[2021-03-04] MEDS: ASPIRIN 81 MG TAB.CHEW GT SCH (07:56)
[2021-03-04] MEDS: ACIDOPHILUS/BULGARICUS CHEW TAB NG SCH ×2 (07:56→20:34)
[2021-03-04] MEDS: METOPROLOL TARTRATE 25 MG TABLET PO SCH ×2 (07:56→20:35)
[2021-03-04] MEDS: PANTOPRAZOLE ORAL SUSPENSION 40 MG SUSPDR.PKT NG SCH ×2 (07:56→20:34)
[2021-03-04] MEDS: Z GUARD REMEDY PASTE 57 GM TUBE TOP SCH ×2 (07:57→21:18)
[2021-03-04] MEDS: NUTRISOURCE FIBER 4 GM PACKET NG SCH ×3 (07:57→16:31)
[2021-03-04] MEDS ORDERED: POTASSIUM PHOSPHATE MM 15 MMOL in IV NORMAL SALINE 250 ML IV ONE (08:00)
[2021-03-04] MEDS: MIDODRINE HCL 5 MG TABLET PO PRN (10:02)
[2021-03-04] MEDS ORDERED: HYDROCODONE/APAP 5-325MG TABLET ONE (13:42)
[2021-03-04] MEDS: ONDANSETRON 4 MG/2 ML VIAL IV PRN (15:52)
[2021-03-04] MEDS ORDERED: ONDANSETRON 4 MG/2 ML VIAL ONE (15:59)
[2021-03-04] MEDS ORDERED: METOCLOPRAMIDE HCL 10 MG/2 ML VIAL IV PRN (18:45)
[2021-03-04] MEDS ORDERED: METOCLOPRAMIDE HCL 10 MG/2 ML VIAL ONE (18:48)
[2021-03-04] MEDS: ATORVASTATIN 40 MG TABLET NG SCH (20:34)
[2021-03-04] MEDS: IV NORMAL SALINE 250 ML IV PRN (21:17)
[2021-03-04] MEDS: INSULIN GLARGINE,HUM 300 UNITS/3 ML CARTRIDGE SQ SCH (21:27)
[2021-03-05] VITALS (8 sets, daily range): BP systolic 134–165; BP diastolic 64–81
[2021-03-05] MEDS: LORAZEPAM 0.5 MG TABLET PO PRN (04:12)
[2021-03-05] MEDS: INSULIN REGULAR, HUMAN 300 UNIT/3 ML VIAL SQ PRN ×3 (05:53→18:19)
[2021-03-05] MEDS: BLOOD SUGAR DIAGNOSTIC 1 EACH STRIP VI SCH ×3 (06:04→18:14)
[2021-03-05 07:31] LABS: HEMATOCRIT 24.4 % (36.7-47.1); MEAN CORPUSCULAR HEMOGLOBIN 29.1 uug (23.8-33.4); PLATELET COUNT (AUTO) 544 K/uL (152-348)
[2021-03-05] MEDS ORDERED: EPOETIN ALFA-EPBX 10,000 UNIT/ML VIAL SQ ONE (08:00)
[2021-03-05 08:05] LABS: CREATININE 3.7 mg/dL (0.6-1.3); MAGNESIUM 2.3 mg/dL (1.8-2.4); POTASSIUM 3.6 mmol/L (3.5-5.1)
[2021-03-05] MEDS: PANTOPRAZOLE ORAL SUSPENSION 40 MG SUSPDR.PKT NG SCH ×2 (08:34→21:29)
[2021-03-05] MEDS: ACIDOPHILUS/BULGARICUS CHEW TAB NG SCH ×2 (08:34→21:28)
[2021-03-05] MEDS: NUTRISOURCE FIBER 4 GM PACKET NG SCH ×3 (08:34→16:43)
[2021-03-05] MEDS: FERROUS SULFATE 300 MG/5 ML LIQUID UDC NG SCH ×2 (08:34→16:43)
[2021-03-05] MEDS: Z GUARD REMEDY PASTE 57 GM TUBE TOP SCH ×2 (08:34→21:33)
[2021-03-05] MEDS: ASPIRIN 81 MG TAB.CHEW GT SCH (08:34)
[2021-03-05] MEDS: METOPROLOL TARTRATE 25 MG TABLET PO SCH ×2 (08:39→21:29)
[2021-03-05] MEDS: DOCUSATE SODIUM 100 MG/10 ML LIQUID UDC NG SCH (08:39)
[2021-03-05] MEDS: SEVELAMER CARBONATE 800 MG POWD.PACK GT SCH (08:39)
[2021-03-05] MEDS: MEROPENEM 500 MG in IV NORMAL SALINE 50 ML IV SCH (12:13)
[2021-03-05] MEDS: ONDANSETRON 4 MG/2 ML VIAL IV PRN (17:16)
[2021-03-05 18:30] LABS: ABG BASE EXCESS 5.3 mmol/L; ABG HCO3 27.6 mmol/L; ABG PCO2 31.3 mmHg (35.0-45.0); ABG PH 7.563 (7.350-7.450); ABG PO2 89.8 mmHg (75.0-100.0); ABG SITE RIGHT RADIAL; ABG TOTAL HEMOGLOBIN 8.7 G/dL (13.5-18.0); COHb 0.3 % (0.5-1.5); MetHb 0.5 % (0.0-1.5); O2Hb 96.7 % (94.0-97.0); VENT MODE COOL AEROSOL
[2021-03-05] MEDS: HYDROCODONE/APAP 5-325MG TABLET PO PRN (20:49)
[2021-03-05] MEDS: INSULIN GLARGINE,HUM 300 UNITS/3 ML CARTRIDGE SQ SCH (21:25)
[2021-03-05] MEDS: ATORVASTATIN 40 MG TABLET NG SCH (21:29)
[2021-03-05] MEDS: MUPIROCIN 2% OINT 22 GM TUBE NS SCH (21:32)
[2021-03-06 00:01] VITALS: BP 123/67
[2021-03-06] MEDS: BLOOD SUGAR DIAGNOSTIC 1 EACH STRIP VI SCH ×4 (00:32→17:58)
[2021-03-06] MEDS: INSULIN REGULAR, HUMAN 300 UNIT/3 ML VIAL SQ PRN ×3 (00:54→18:00)
[2021-03-06] MEDS ORDERED: INSULIN REGULAR, HUMAN 300 UNIT/3 ML VIAL ONE (00:57)
[2021-03-06] MEDS: HYDROCODONE/APAP 5-325MG TABLET PO PRN ×2 (03:09→17:48)
[2021-03-06 04:00] VITALS: BP 149/77
[2021-03-06 07:53] VITALS: BP 182/88
[2021-03-06] MEDS: PANTOPRAZOLE ORAL SUSPENSION 40 MG SUSPDR.PKT NG SCH ×2 (08:16→21:25)
[2021-03-06] MEDS: METOPROLOL TARTRATE 25 MG TABLET PO SCH ×2 (08:16→21:25)
[2021-03-06] MEDS: ACETAMINOPHEN 650 MG/20.3 ML LIQUID UDC PO PRN (08:16)
[2021-03-06] MEDS: FERROUS SULFATE 300 MG/5 ML LIQUID UDC NG SCH ×2 (08:16→16:38)
[2021-03-06] MEDS: ACIDOPHILUS/BULGARICUS CHEW TAB NG SCH ×2 (08:16→21:25)
[2021-03-06] MEDS: ASPIRIN 81 MG TAB.CHEW GT SCH (08:16)
[2021-03-06] MEDS: hydrALAZINE HCL 20 MG/1 ML VIAL IV PRN (08:17)
[2021-03-06] MEDS: NUTRISOURCE FIBER 4 GM PACKET NG SCH ×3 (08:17→16:38)
[2021-03-06] MEDS: Z GUARD REMEDY PASTE 57 GM TUBE TOP SCH ×2 (08:17→21:26)
[2021-03-06] MEDS: SEVELAMER CARBONATE 800 MG POWD.PACK GT SCH (08:18)
[2021-03-06] MEDS: MUPIROCIN 2% OINT 22 GM TUBE NS SCH ×2 (08:18→21:34)
[2021-03-06] MEDS: DOCUSATE SODIUM 100 MG/10 ML LIQUID UDC NG SCH (08:18)
[2021-03-06 08:34] LABS: ABG BASE EXCESS 4.3 mmol/L; ABG HCO3 28.1 mmol/L; ABG PCO2 39.1 mmHg (35.0-45.0); ABG PH 7.475 (7.350-7.450); ABG PO2 80.7 mmHg (75.0-100.0); ABG SITE RIGHT RADIAL; COHb 0.5 % (0.5-1.5); MetHb 0.3 % (0.0-1.5); O2Hb 94.9 % (94.0-97.0); VENT MODE VENT - A/C; VT, ABG 500 mL
[2021-03-06 08:54] LABS: CREATININE 3.9 mg/dL (0.6-1.3); MAGNESIUM 2.5 mg/dL (1.8-2.4); PHOSPHOROUS 4.1 mg/dL (2.5-4.9); POTASSIUM 3.6 mmol/L (3.5-5.1)
[2021-03-06 09:06] LABS: HEMATOCRIT 25.2 % (36.7-47.1); MEAN CORPUSCULAR HEMOGLOBIN 29.1 uug (23.8-33.4); MEAN CORPUSCULAR VOLUME 86.5 fL (73.0-96.2); PLATELET COUNT (AUTO) 568 K/uL (152-348)
[2021-03-06] MEDS: LORAZEPAM 0.5 MG TABLET PO PRN (10:07)
[2021-03-06] MEDS: MIDODRINE HCL 5 MG TABLET PO PRN (12:11)
[2021-03-06 12:54] VITALS: BP 86/44
[2021-03-06] MEDS: MEROPENEM 500 MG in IV NORMAL SALINE 50 ML IV SCH (13:20)
[2021-03-06] MEDS: ONDANSETRON 4 MG/2 ML VIAL IV PRN ×2 (14:18→23:19)
[2021-03-06 14:49] LABS: BILIRUBIN,DIRECT 0.2 mg/dL (0.0-0.2); BILIRUBIN,TOTAL 0.2 mg/dL (0.2-1.0); TOTAL PROTEIN, SERUM 8.4 g/dL (6.4-8.2)
[2021-03-06 14:50] LABS: BILIRUBIN,DIRECT 0.2 mg/dL (0.0-0.2); BILIRUBIN,TOTAL 0.2 mg/dL (0.2-1.0)
[2021-03-06] MEDS ORDERED: VANCOMYCIN IV 1,000 MG in IV DEXTROSE 5% 250 ML IV ONE (16:00)
[2021-03-06 17:38] VITALS: BP 156/39
[2021-03-06 20:00] VITALS: BP 140/66
[2021-03-06] MEDS: ATORVASTATIN 40 MG TABLET NG SCH (21:25)
[2021-03-06] MEDS: INSULIN GLARGINE,HUM 300 UNITS/3 ML CARTRIDGE SQ SCH (21:28)
[2021-03-07] VITALS: BP 148/71
[2021-03-07] MEDS: BLOOD SUGAR DIAGNOSTIC 1 EACH STRIP VI SCH ×5 (00:01→23:47)
[2021-03-07] MEDS: HYDROCODONE/APAP 5-325MG TABLET PO PRN (03:39)
[2021-03-07 04:00] VITALS: BP 146/72
[2021-03-07 05:27] LABS: ABG BASE EXCESS 5.3 mmol/L; ABG HCO3 29.1 mmol/L; ABG PCO2 39.5 mmHg (35.0-45.0); ABG PH 7.485 (7.350-7.450); ABG PO2 120.3 mmHg (75.0-100.0); ABG SITE LEFT RADIAL; ABG TOTAL HEMOGLOBIN 9.2 G/dL (13.5-18.0); COHb 0.3 % (0.5-1.5); MetHb 0.2 % (0.0-1.5); VENT MODE VENT - A/C; VT, ABG 500 mL
[2021-03-07 06:42] LABS: HEMATOCRIT 24.8 % (36.7-47.1); MEAN CORPUSCULAR VOLUME 86.9 fL (73.0-96.2); PLATELET COUNT (AUTO) 571 K/uL (152-348)
[2021-03-07 07:02] LABS: BILIRUBIN,TOTAL 0.4 mg/dL (0.2-1.0); CREATININE 3.1 mg/dL (0.6-1.3); PHOSPHOROUS 3.7 mg/dL (2.5-4.9); POTASSIUM 3.6 mmol/L (3.5-5.1); TOTAL PROTEIN, SERUM 8.1 g/dL (6.4-8.2); VANCOMYCIN,RANDOM 26.5 ug/mL (18.0-26.0)
[2021-03-07 07:30] VITALS: BP 181/85
[2021-03-07] MEDS: SEVELAMER CARBONATE 800 MG POWD.PACK GT SCH (08:29)
[2021-03-07] MEDS: ACIDOPHILUS/BULGARICUS CHEW TAB NG SCH ×2 (08:29→20:15)
[2021-03-07] MEDS: DOCUSATE SODIUM 100 MG/10 ML LIQUID UDC NG SCH (08:30)
[2021-03-07] MEDS: METOPROLOL TARTRATE 25 MG TABLET PO SCH ×3 (08:30→20:17)
[2021-03-07] MEDS: ASPIRIN 81 MG TAB.CHEW GT SCH (08:30)
[2021-03-07] MEDS: Z GUARD REMEDY PASTE 57 GM TUBE TOP SCH ×2 (08:30→20:21)
[2021-03-07] MEDS: PANTOPRAZOLE ORAL SUSPENSION 40 MG SUSPDR.PKT NG SCH ×2 (08:30→20:15)
[2021-03-07] MEDS: FERROUS SULFATE 300 MG/5 ML LIQUID UDC NG SCH ×2 (08:30→16:22)
[2021-03-07] MEDS: NUTRISOURCE FIBER 4 GM PACKET NG SCH ×3 (08:31→16:22)
[2021-03-07] MEDS: MUPIROCIN 2% OINT 22 GM TUBE NS SCH ×2 (08:32→21:18)
[2021-03-07] MEDS: hydrALAZINE HCL 20 MG/1 ML VIAL IV PRN (08:36)
[2021-03-07] MEDS: METOCLOPRAMIDE HCL 10 MG TABLET GT PRN (08:36)
[2021-03-07] MEDS ORDERED: VANCOMYCIN IV 500 MG in IV DEXTROSE 5% 100 ML IV PRN (08:45)
[2021-03-07] MEDS: LOPERAMIDE HCL 2 MG CAPSULE PO PRN (09:28)
[2021-03-07 11:31] VITALS: BP 142/58
[2021-03-07] MEDS: MEROPENEM 500 MG in IV NORMAL SALINE 50 ML IV SCH (12:09)
[2021-03-07] MEDS: INSULIN REGULAR, HUMAN 300 UNIT/3 ML VIAL SQ PRN ×2 (12:12→23:47)
[2021-03-07] MEDS: METRONIDAZOLE 500 MG/NS 100ML 500 MG in PREMIXED 1 EACH IV SCH ×2 (13:08→21:39)
[2021-03-07 16:00] VITALS: BP 157/80
[2021-03-07] MEDS: IV NORMAL SALINE 250 ML IV PRN (17:51)
[2021-03-07 20:00] VITALS: BP 152/80
[2021-03-07] MEDS: ATORVASTATIN 40 MG TABLET NG SCH (20:16)
[2021-03-07] MEDS: INSULIN GLARGINE,HUM 300 UNITS/3 ML CARTRIDGE SQ SCH (21:00)
[2021-03-07] MEDS: ONDANSETRON 4 MG/2 ML VIAL IV PRN (21:46)
[2021-03-07] MEDS: LORAZEPAM 0.5 MG TABLET PO PRN (23:37)
[2021-03-08 00:39] VITALS: BP 170/75
[2021-03-08] MEDS: hydrALAZINE HCL 20 MG/1 ML VIAL IV PRN (02:02)
[2021-03-08 04:43] VITALS: BP 121/61
[2021-03-08] MEDS: METRONIDAZOLE 500 MG/NS 100ML 500 MG in PREMIXED 1 EACH IV SCH ×3 (05:47→21:14)
[2021-03-08 05:51] LABS: ABG BASE EXCESS 3.5 mmol/L; ABG HCO3 27.1 mmol/L; ABG PCO2 36.9 mmHg (35.0-45.0); ABG PH 7.484 (7.350-7.450); ABG PO2 136.2 mmHg (75.0-100.0); ABG SITE RIGHT RADIAL; ABG TOTAL HEMOGLOBIN 9.2 G/dL (13.5-18.0); COHb 0.3 % (0.5-1.5); MetHb 0.5 % (0.0-1.5); O2Hb 97.9 % (94.0-97.0); VENT MODE VENT - A/C; VT, ABG 500 mL
[2021-03-08] MEDS: INSULIN REGULAR, HUMAN 300 UNIT/3 ML VIAL SQ PRN ×2 (06:50→23:44)
[2021-03-08] MEDS: BLOOD SUGAR DIAGNOSTIC 1 EACH STRIP VI SCH ×4 (06:50→23:44)
[2021-03-08 07:23] LABS: HEMATOCRIT 27.4 % (36.7-47.1); MEAN CORPUSCULAR HEMOGLOBIN 28.4 uug (23.8-33.4); MEAN CORPUSCULAR VOLUME 86.3 fL (73.0-96.2); PLATELET COUNT (AUTO) 592 K/uL (152-348)
[2021-03-08 07:39] LABS: CREATININE 3.7 mg/dL (0.6-1.3); PHOSPHOROUS 5.3 mg/dL (2.5-4.9); POTASSIUM 3.7 mmol/L (3.5-5.1)
[2021-03-08] MEDS: ONDANSETRON 4 MG/2 ML VIAL IV PRN (08:22)
[2021-03-08] MEDS: DOCUSATE SODIUM 100 MG/10 ML LIQUID UDC NG SCH (09:00)
[2021-03-08] MEDS: FERROUS SULFATE 300 MG/5 ML LIQUID UDC NG SCH ×2 (09:04→17:16)
[2021-03-08] MEDS: ACIDOPHILUS/BULGARICUS CHEW TAB NG SCH ×2 (09:04→20:11)
[2021-03-08] MEDS: ASPIRIN 81 MG TAB.CHEW GT SCH (09:04)
[2021-03-08] MEDS: NUTRISOURCE FIBER 4 GM PACKET NG SCH ×3 (09:04→17:17)
[2021-03-08] MEDS: PANTOPRAZOLE ORAL SUSPENSION 40 MG SUSPDR.PKT NG SCH ×2 (09:04→20:11)
[2021-03-08] MEDS: Z GUARD REMEDY PASTE 57 GM TUBE TOP SCH ×2 (09:05→20:19)
[2021-03-08] MEDS: SEVELAMER CARBONATE 800 MG POWD.PACK GT SCH (09:06)
[2021-03-08] MEDS: METOPROLOL TARTRATE 25 MG TABLET PO SCH ×2 (09:33→20:15)
[2021-03-08] MEDS: MUPIROCIN 2% OINT 22 GM TUBE NS SCH ×2 (09:34→21:15)
[2021-03-08 11:33] VITALS: BP 149/33
[2021-03-08] MEDS: MEROPENEM 500 MG in IV NORMAL SALINE 50 ML IV SCH (12:29)
[2021-03-08] MEDS: METOCLOPRAMIDE HCL 10 MG TABLET GT PRN (13:13)
[2021-03-08] MEDS: LORAZEPAM 0.5 MG TABLET PO PRN ×2 (15:13→23:44)
[2021-03-08 15:15] VITALS: BP 127/28
[2021-03-08] MEDS: SIMETHICONE 40 MG/0.6 ML, 30ML BOTTLE GT PRN (17:39)
[2021-03-08] MEDS: NEPRO 1000 ML GT PRN (18:54)
[2021-03-08 20:00] VITALS: BP 147/63
[2021-03-08] MEDS: ATORVASTATIN 40 MG TABLET NG SCH (20:12)
[2021-03-08] MEDS: AMLODIPINE 5 MG TABLET GT SCH (20:14)
[2021-03-08] MEDS: INSULIN GLARGINE,HUM 300 UNITS/3 ML CARTRIDGE SQ SCH (20:41)
[2021-03-08 23:55] VITALS: BP 160/76
[2021-03-09 04:00] VITALS: BP 171/44
[2021-03-09 04:42] LABS: HEMATOCRIT 25.3 % (36.7-47.1); MEAN CORPUSCULAR HEMOGLOBIN 28.4 uug (23.8-33.4); PLATELET COUNT (AUTO) 522 K/uL (152-348)
[2021-03-09 04:52] LABS: BILIRUBIN,TOTAL 0.4 mg/dL (0.2-1.0); CREATININE 2.8 mg/dL (0.6-1.3); MAGNESIUM 1.8 mg/dL (1.8-2.4); PHOSPHOROUS 4.3 mg/dL (2.5-4.9); POTASSIUM 3.1 mmol/L (3.5-5.1); TOTAL PROTEIN, SERUM 7.9 g/dL (6.4-8.2)
[2021-03-09] MEDS: METRONIDAZOLE 500 MG/NS 100ML 500 MG in PREMIXED 1 EACH IV SCH ×4 (05:20→22:00)
[2021-03-09] MEDS: BLOOD SUGAR DIAGNOSTIC 1 EACH STRIP VI SCH ×4 (06:21→23:36)
[2021-03-09] MEDS: INSULIN REGULAR, HUMAN 300 UNIT/3 ML VIAL SQ PRN (06:21)
[2021-03-09 07:30] VITALS: BP 95/60
[2021-03-09] MEDS: AMLODIPINE 5 MG TABLET GT SCH ×2 (08:08→20:25)
[2021-03-09] MEDS ORDERED: POTASSIUM CHLORIDE 50 ML IV ONE (08:30)
[2021-03-09] MEDS: FERROUS SULFATE 300 MG/5 ML LIQUID UDC NG SCH ×2 (09:09→17:35)
[2021-03-09] MEDS: ACIDOPHILUS/BULGARICUS CHEW TAB NG SCH ×2 (09:10→20:25)
[2021-03-09] MEDS: ASPIRIN 81 MG TAB.CHEW GT SCH (09:10)
[2021-03-09] MEDS: PANTOPRAZOLE ORAL SUSPENSION 40 MG SUSPDR.PKT NG SCH ×2 (09:10→20:24)
[2021-03-09] MEDS: GUAIFENESIN/DEXTROMETHORPHAN 5 ML UDC PO PRN (09:10)
[2021-03-09] MEDS: NUTRISOURCE FIBER 4 GM PACKET NG SCH ×3 (09:11→17:36)
[2021-03-09] MEDS: MUPIROCIN 2% OINT 22 GM TUBE NS SCH ×2 (09:11→20:26)
[2021-03-09] MEDS: Z GUARD REMEDY PASTE 57 GM TUBE TOP SCH ×2 (09:12→20:36)
[2021-03-09] MEDS: SEVELAMER CARBONATE 800 MG POWD.PACK GT SCH (09:15)
[2021-03-09] MEDS: METOPROLOL TARTRATE 25 MG TABLET PO SCH ×2 (09:16→20:35)
[2021-03-09] MEDS: POTASSIUM CHLORIDE 50 ML IV SCH ×3 (10:31→14:06)
[2021-03-09 11:57] VITALS: BP 134/70
[2021-03-09] MEDS ORDERED: VANCOMYCIN IV 500 MG in IV DEXTROSE 5% 100 ML IV ONE (12:00)
[2021-03-09 16:00] VITALS: BP 117/62
[2021-03-09] MEDS: METOCLOPRAMIDE HCL 10 MG TABLET GT PRN (17:35)
[2021-03-09] MEDS: NEPRO 1000 ML GT PRN (17:36)
[2021-03-09 20:00] VITALS: BP 102/58
[2021-03-09] MEDS: ATORVASTATIN 40 MG TABLET NG SCH (20:25)
[2021-03-09] MEDS: INSULIN GLARGINE,HUM 300 UNITS/3 ML CARTRIDGE SQ SCH (20:34)
[2021-03-09] MEDS: LORAZEPAM 0.5 MG TABLET PO PRN (20:39)
[2021-03-10] VITALS (9 sets, daily range): BP systolic 116–154; BP diastolic 63–75
[2021-03-10] MEDS: ONDANSETRON 4 MG/2 ML VIAL IV PRN (05:35)
[2021-03-10] MEDS: BLOOD SUGAR DIAGNOSTIC 1 EACH STRIP VI SCH ×4 (05:35→23:23)
[2021-03-10] MEDS: METRONIDAZOLE 500 MG/NS 100ML 500 MG in PREMIXED 1 EACH IV SCH (05:36)
[2021-03-10 06:47] LABS: HEMATOCRIT 26.8 % (36.7-47.1); MEAN CORPUSCULAR HEMOGLOBIN 28.9 uug (23.8-33.4); MEAN CORPUSCULAR VOLUME 85.7 fL (73.0-96.2); PLATELET COUNT (AUTO) 541 K/uL (152-348)
[2021-03-10 07:10] LABS: CREATININE 3.5 mg/dL (0.6-1.3); MAGNESIUM 1.9 mg/dL (1.8-2.4); PHOSPHOROUS 5.1 mg/dL (2.5-4.9); POTASSIUM 3.7 mmol/L (3.5-5.1)
[2021-03-10 09:21] LABS: ABG BASE EXCESS 0.6 mmol/L; ABG HCO3 22.6 mmol/L; ABG PCO2 27.2 mmHg (35.0-45.0); ABG PH 7.537 (7.350-7.450); ABG PO2 93.8 mmHg (75.0-100.0); ABG SITE RIGHT RADIAL; ABG TOTAL HEMOGLOBIN 9.7 G/dL (13.5-18.0); COHb 0.1 % (0.5-1.5); MetHb 0.1 % (0.0-1.5); O2Hb 97.1 % (94.0-97.0)
[2021-03-10] MEDS: ACIDOPHILUS/BULGARICUS CHEW TAB NG SCH ×2 (09:33→20:26)
[2021-03-10] MEDS: ASPIRIN 81 MG TAB.CHEW GT SCH (09:33)
[2021-03-10] MEDS: METOPROLOL TARTRATE 25 MG TABLET PO SCH ×2 (09:33→20:28)
[2021-03-10] MEDS: PANTOPRAZOLE ORAL SUSPENSION 40 MG SUSPDR.PKT NG SCH ×2 (09:33→20:28)
[2021-03-10] MEDS: FERROUS SULFATE 300 MG/5 ML LIQUID UDC NG SCH ×2 (09:33→17:27)
[2021-03-10] MEDS: MUPIROCIN 2% OINT 22 GM TUBE NS SCH ×2 (09:41→20:30)
[2021-03-10] MEDS: Z GUARD REMEDY PASTE 57 GM TUBE TOP SCH ×2 (09:42→20:41)
[2021-03-10] MEDS: NUTRISOURCE FIBER 4 GM PACKET NG SCH ×3 (09:42→17:27)
[2021-03-10] MEDS: SEVELAMER CARBONATE 800 MG POWD.PACK GT SCH (10:04)
[2021-03-10] MEDS: HYDROCODONE/APAP 5-325MG TABLET PO PRN ×2 (10:44→17:31)
[2021-03-10] MEDS ORDERED: METRONIDAZOLE 500 MG TABLET PO SCH (14:00)
[2021-03-10] MEDS: METRONIDAZOLE 500 MG TABLET GT SCH ×2 (15:02→21:01)
[2021-03-10 19:45] LABS: HEPATITIS B SURFACE AG Negative
[2021-03-10] MEDS: ATORVASTATIN 40 MG TABLET NG SCH (20:28)
[2021-03-10] MEDS: AMLODIPINE 5 MG TABLET GT SCH (20:28)
[2021-03-10] MEDS: INSULIN GLARGINE,HUM 300 UNITS/3 ML CARTRIDGE SQ SCH (20:31)
[2021-03-10] MEDS: LORAZEPAM 0.5 MG TABLET PO PRN (23:23)
[2021-03-11] VITALS (10 sets, daily range): BP systolic 60–140; BP diastolic 56–76
[2021-03-11] MEDS: METRONIDAZOLE 500 MG TABLET GT SCH (05:04)
[2021-03-11] MEDS: BLOOD SUGAR DIAGNOSTIC 1 EACH STRIP VI SCH ×2 (05:17→05:55)
[2021-03-11] MEDS: ACIDOPHILUS/BULGARICUS CHEW TAB NG SCH ×2 (08:57→20:55)
[2021-03-11] MEDS: PANTOPRAZOLE ORAL SUSPENSION 40 MG SUSPDR.PKT NG SCH ×2 (08:57→20:56)
[2021-03-11] MEDS: METOPROLOL TARTRATE 25 MG TABLET PO SCH ×2 (08:57→20:55)
[2021-03-11] MEDS: ASPIRIN 81 MG TAB.CHEW GT SCH (08:57)
[2021-03-11] MEDS: FERROUS SULFATE 300 MG/5 ML LIQUID UDC NG SCH ×2 (08:57→17:43)
[2021-03-11] MEDS: HYDROCODONE/APAP 5-325MG TABLET PO PRN ×2 (08:58→17:41)
[2021-03-11] MEDS: Z GUARD REMEDY PASTE 57 GM TUBE TOP SCH ×2 (08:58→21:07)
[2021-03-11] MEDS: MUPIROCIN 2% OINT 22 GM TUBE NS SCH ×2 (09:11→21:07)
[2021-03-11] MEDS: NUTRISOURCE FIBER 4 GM PACKET NG SCH ×3 (09:14→17:43)
[2021-03-11] MEDS: SEVELAMER CARBONATE 800 MG POWD.PACK GT SCH (09:15)
[2021-03-11 09:53] LABS: HEMATOCRIT 27.6 % (36.7-47.1); MEAN CORPUSCULAR HEMOGLOBIN 28.1 uug (23.8-33.4); MEAN CORPUSCULAR VOLUME 85.6 fL (73.0-96.2); PLATELET COUNT (AUTO) 496 K/uL (152-348)
[2021-03-11 10:06] LABS: BILIRUBIN,TOTAL 0.5 mg/dL (0.2-1.0); CREATININE 3.5 mg/dL (0.6-1.3); PHOSPHOROUS 5.4 mg/dL (2.5-4.9); POTASSIUM 3.3 mmol/L (3.5-5.1); TOTAL PROTEIN, SERUM 8.4 g/dL (6.4-8.2); VANCOMYCIN,RANDOM 16.9 ug/mL (18.0-26.0)
[2021-03-11] MEDS: POTASSIUM CHLORIDE 20 MEQ POWDER PACKET GT ONE ×2 (11:15→12:05)
[2021-03-11] MEDS ORDERED: ALBUMIN HUMAN 25% 100 ML IV PRN (11:15)
[2021-03-11] MEDS ORDERED: VANCOMYCIN IV 500 MG in IV DEXTROSE 5% 100 ML IV ONE (15:00)
[2021-03-11] MEDS: EPOETIN ALFA-EPBX 10,000 UNIT/ML VIAL IV ONE ×2 (15:58→16:04)
[2021-03-11] MEDS ORDERED: EPOETIN ALFA-EPBX 10,000 UNIT/ML VIAL SQ ONE (16:15)
[2021-03-11] MEDS: LOPERAMIDE HCL 2 MG CAPSULE PO PRN (17:43)
[2021-03-11] MEDS: AMLODIPINE 5 MG TABLET GT SCH (20:55)
[2021-03-11] MEDS: INSULIN GLARGINE,HUM 300 UNITS/3 ML CARTRIDGE SQ SCH (21:52)
[2021-03-12] VITALS: BP 136/74
[2021-03-12 03:58] VITALS: BP 110/100
[2021-03-12 05:45] LABS: CREATININE 2.9 mg/dL (0.6-1.3); HEMATOCRIT 28.1 % (36.7-47.1); MEAN CORPUSCULAR HEMOGLOBIN 27.6 uug (23.8-33.4); MEAN CORPUSCULAR VOLUME 86.6 fL (73.0-96.2); PHOSPHOROUS 3.8 mg/dL (2.5-4.9); PLATELET COUNT (AUTO) 438 K/uL (152-348); POTASSIUM 3.7 mmol/L (3.5-5.1)
[2021-03-12 08:00] VITALS: BP 122/70
[2021-03-12] MEDS ORDERED: DIATR MEGLU/DIATRIZOATE SODIUM 30 ML BOTTLE ONE (08:27)
[2021-03-12] MEDS: PANTOPRAZOLE ORAL SUSPENSION 40 MG SUSPDR.PKT NG SCH ×2 (08:37→21:43)
[2021-03-12] MEDS: ASPIRIN 81 MG TAB.CHEW GT SCH (08:37)
[2021-03-12] MEDS: ACIDOPHILUS/BULGARICUS CHEW TAB NG SCH ×2 (08:37→21:43)
[2021-03-12] MEDS: SEVELAMER CARBONATE 800 MG POWD.PACK GT SCH (08:37)
[2021-03-12] MEDS: FERROUS SULFATE 300 MG/5 ML LIQUID UDC NG SCH ×2 (08:37→16:01)
[2021-03-12] MEDS: METOPROLOL TARTRATE 25 MG TABLET PO SCH ×2 (08:38→21:43)
[2021-03-12 08:55] LABS: ABG BASE EXCESS 2.4 mmol/L; ABG HCO3 26.4 mmol/L; ABG PCO2 38.7 mmHg (35.0-45.0); ABG PH 7.452 (7.350-7.450); ABG PO2 86.6 mmHg (75.0-100.0); ABG SITE RIGHT RADIAL; ABG TOTAL HEMOGLOBIN 11.6 G/dL (13.5-18.0); COHb 0.3 % (0.5-1.5); MetHb 0.1 % (0.0-1.5)
[2021-03-12] MEDS: NUTRISOURCE FIBER 4 GM PACKET NG SCH ×3 (09:09→16:01)
[2021-03-12] MEDS: MUPIROCIN 2% OINT 22 GM TUBE NS SCH (09:09)
[2021-03-12] MEDS: Z GUARD REMEDY PASTE 57 GM TUBE TOP SCH ×2 (09:09→21:46)
[2021-03-12] MEDS: HYDROCODONE/APAP 5-325MG TABLET PO PRN ×2 (11:14→21:48)
[2021-03-12] MEDS: ACETAMINOPHEN 650 MG/20.3 ML LIQUID UDC PO PRN (11:14)
[2021-03-12 12:00] VITALS: BP 114/60
[2021-03-12] MEDS: ONDANSETRON 4 MG/2 ML VIAL IV PRN (13:51)
[2021-03-12 16:00] VITALS: BP 126/63
[2021-03-12 20:00] VITALS: BP 112/56
[2021-03-12 20:08] LABS: *BILIRUBIN,URIN 1+ (NEGATIVE); *BLOOD, URINE 3+ (NEGATIVE); *CLARITY,URINE CLOUDY (CLEAR); *COLOR,URINE DARK YELLOW (YELLOW); *KETONES,URINE TRACE (NEGATIVE); *UROBILINOGEN,URINE 0.2 E.U./dl (NORMAL); LEUKOCYTE ESTERASE ,URINE 3+ (NEGATIVE); NITRITE, URINE NEGATIVE (NEGATIVE); PH,URINE 5.5 (5.0-8.0); UGLUCOSE NEGATIVE (NEGATIVE)
[2021-03-12 20:22] LABS: RBC,URINE TNTC /HPF (0-3)
[2021-03-12 20:23] LABS: BACTERIA,URINE MANY /HPF (NONE SEEN); SQUAMOUS EPITHELIAL CELL,UR FEW /HPF (NONE SEEN); WBC,URINE TNTC /HPF (0-3); YEAST,URINE MANY /HPF (NONE SEEN)
[2021-03-12] MEDS: INSULIN GLARGINE,HUM 300 UNITS/3 ML CARTRIDGE SQ SCH (21:00)
[2021-03-12] MEDS: AMLODIPINE 5 MG TABLET GT SCH (21:45)
[2021-03-12] MEDS ORDERED: FLUCONAZOLE 100 MG TABLET PO SCH (22:45)
[2021-03-13 00:01] VITALS: BP 137/75
[2021-03-13] MEDS ORDERED: FLUCONAZOLE 100 MG TABLET ONE (00:50)
[2021-03-13 04:00] VITALS: BP 136/69
[2021-03-13 05:52] LABS: HEMATOCRIT 24.2 % (36.7-47.1); MEAN CORPUSCULAR HEMOGLOBIN 28.4 uug (23.8-33.4); MEAN CORPUSCULAR VOLUME 85.7 fL (73.0-96.2); PLATELET COUNT (AUTO) 395 K/uL (152-348)
[2021-03-13 06:01] LABS: CREATININE 2.9 mg/dL (0.6-1.3); PHOSPHOROUS 5.2 mg/dL (2.5-4.9); POTASSIUM 3.4 mmol/L (3.5-5.1)
[2021-03-13] MEDS: FERROUS SULFATE 300 MG/5 ML LIQUID UDC NG SCH ×2 (08:09→17:25)
[2021-03-13] MEDS: HYDROCODONE/APAP 5-325MG TABLET PO PRN ×2 (08:09→22:05)
[2021-03-13] MEDS: ASPIRIN 81 MG TAB.CHEW GT SCH (08:10)
[2021-03-13] MEDS: PANTOPRAZOLE ORAL SUSPENSION 40 MG SUSPDR.PKT NG SCH ×2 (08:10→21:05)
[2021-03-13] MEDS: ACIDOPHILUS/BULGARICUS CHEW TAB NG SCH ×2 (08:10→21:05)
[2021-03-13] MEDS: NUTRISOURCE FIBER 4 GM PACKET NG SCH ×3 (08:11→17:26)
[2021-03-13] MEDS: SEVELAMER CARBONATE 800 MG POWD.PACK GT SCH (08:11)
[2021-03-13] MEDS: Z GUARD REMEDY PASTE 57 GM TUBE TOP SCH ×2 (08:11→21:06)
[2021-03-13] MEDS: METOPROLOL TARTRATE 25 MG TABLET PO SCH ×2 (08:13→21:06)
[2021-03-13] MEDS ORDERED: POTASSIUM CHLORIDE 20 MEQ POWDER PACKET GT ONE (10:30)
[2021-03-13] MEDS: SIMETHICONE 40 MG/0.6 ML, 30ML BOTTLE GT PRN (10:53)
[2021-03-13 12:00] VITALS: BP 156/77
[2021-03-13] MEDS: ACETAMINOPHEN 650 MG/20.3 ML LIQUID UDC PO PRN (12:45)
[2021-03-13] MEDS: IV D5 1/2 NS 1000 ML 1,000 ML IV PRN (14:16)
[2021-03-13] MEDS: VITAL AF 1.2 1,000 ML LIQUID GT PRN (18:05)
[2021-03-13 18:15] VITALS: BP 151/73
[2021-03-13 20:00] VITALS: BP 142/102
[2021-03-13] MEDS: INSULIN GLARGINE,HUM 300 UNITS/3 ML CARTRIDGE SQ SCH (21:00)
[2021-03-13] MEDS: FLUCONAZOLE 100 MG TABLET PO SCH (21:05)
[2021-03-13] MEDS: AMLODIPINE 5 MG TABLET GT SCH (21:06)
[2021-03-14] VITALS: BP 143/72
[2021-03-14 04:00] VITALS: BP 134/70
[2021-03-14 05:02] LABS: HEMATOCRIT 25.4 % (36.7-47.1); MEAN CORPUSCULAR HEMOGLOBIN 28.2 uug (23.8-33.4); MEAN CORPUSCULAR VOLUME 86.2 fL (73.0-96.2); PLATELET COUNT (AUTO) 416 K/uL (152-348)
[2021-03-14 05:18] LABS: BILIRUBIN,TOTAL 0.4 mg/dL (0.2-1.0); CREATININE 2.5 mg/dL (0.6-1.3); MAGNESIUM 1.6 mg/dL (1.8-2.4); PHOSPHOROUS 4.4 mg/dL (2.5-4.9); POTASSIUM 3.7 mmol/L (3.5-5.1); TOTAL PROTEIN, SERUM 7.6 g/dL (6.4-8.2)
[2021-03-14] MEDS: ONDANSETRON 4 MG/2 ML VIAL IV PRN ×2 (05:53→22:01)
[2021-03-14] MEDS: IV D5 1/2 NS 1000 ML 1,000 ML IV PRN ×2 (07:14→21:40)
[2021-03-14 08:00] VITALS: BP 129/74
[2021-03-14] MEDS: PROTEIN SUPPLEMENT (PROSTAT) 30 ML LIQUID GT SCH (08:00)
[2021-03-14] MEDS: MAGNESIUM SULFATE/D5W 100 ML IV SCH ×2 (08:30→10:03)
[2021-03-14] MEDS ORDERED: POTASSIUM CHLORIDE 50 ML IV SCH (08:30)
[2021-03-14] MEDS: METOPROLOL TARTRATE 25 MG TABLET PO SCH ×2 (08:30→20:24)
[2021-03-14] MEDS: SEVELAMER CARBONATE 800 MG POWD.PACK GT SCH (08:35)
[2021-03-14] MEDS: FERROUS SULFATE 300 MG/5 ML LIQUID UDC NG SCH ×2 (08:45→17:11)
[2021-03-14] MEDS: ACIDOPHILUS/BULGARICUS CHEW TAB NG SCH ×2 (08:50→20:23)
[2021-03-14] MEDS: Z GUARD REMEDY PASTE 57 GM TUBE TOP SCH ×2 (09:00→20:30)
[2021-03-14] MEDS: PANTOPRAZOLE ORAL SUSPENSION 40 MG SUSPDR.PKT NG SCH ×2 (09:00→20:23)
[2021-03-14] MEDS: NUTRISOURCE FIBER 4 GM PACKET NG SCH ×3 (09:00→17:11)
[2021-03-14 10:00] VITALS: BP 138/71
[2021-03-14] MEDS: ASPIRIN 81 MG TAB.CHEW GT SCH (10:00)
[2021-03-14 12:00] VITALS: BP 132/68
[2021-03-14] MEDS ORDERED: EPOETIN ALFA 10,000 UNITS/ML VIAL SQ ONE ×2 (14:00)
[2021-03-14] MEDS: HYDROCODONE/APAP 5-325MG TABLET PO PRN ×2 (14:16→17:22)
[2021-03-14] MEDS ORDERED: VANCOMYCIN IV 1,000 MG in IV DEXTROSE 5% 250 ML IV ONE (16:00)
[2021-03-14] MEDS: VITAL AF 1.2 1,000 ML LIQUID GT PRN (17:57)
[2021-03-14 20:00] VITALS: BP 152/71
[2021-03-14] MEDS: FLUCONAZOLE 100 MG TABLET PO SCH (20:23)
[2021-03-14] MEDS: AMLODIPINE 5 MG TABLET GT SCH (20:23)
[2021-03-14] MEDS: INSULIN GLARGINE,HUM 300 UNITS/3 ML CARTRIDGE SQ SCH (20:29)
[2021-03-14] MEDS: ACETAMINOPHEN 650 MG/20.3 ML LIQUID UDC PO PRN (21:53)
[2021-03-15] VITALS: BP 145/69
[2021-03-15 04:00] VITALS: BP 150/70
[2021-03-15 07:06] LABS: HEMATOCRIT 25.1 % (36.7-47.1); MEAN CORPUSCULAR HEMOGLOBIN 28.6 uug (23.8-33.4); MEAN CORPUSCULAR VOLUME 84.7 fL (73.0-96.2); PLATELET COUNT (AUTO) 427 K/uL (152-348)
[2021-03-15 07:16] LABS: MAGNESIUM 1.7 mg/dL (1.8-2.4); PHOSPHOROUS 3.4 mg/dL (2.5-4.9); POTASSIUM 3.4 mmol/L (3.5-5.1)
[2021-03-15] MEDS ORDERED: POTASSIUM CHLORIDE 20 MEQ POWDER PACKET GT ONE (08:30)
[2021-03-15] MEDS: FERROUS SULFATE 300 MG/5 ML LIQUID UDC NG SCH ×2 (08:46→16:51)
[2021-03-15] MEDS: ACIDOPHILUS/BULGARICUS CHEW TAB NG SCH ×2 (08:47→21:57)
[2021-03-15] MEDS: PANTOPRAZOLE ORAL SUSPENSION 40 MG SUSPDR.PKT NG SCH ×2 (08:47→21:24)
[2021-03-15] MEDS: ASPIRIN 81 MG TAB.CHEW GT SCH (08:47)
[2021-03-15] MEDS: METOPROLOL TARTRATE 25 MG TABLET PO SCH ×2 (08:48→21:25)
[2021-03-15] MEDS: Z GUARD REMEDY PASTE 57 GM TUBE TOP SCH ×2 (08:48→21:42)
[2021-03-15] MEDS: LOPERAMIDE HCL 2 MG CAPSULE PO PRN (08:51)
[2021-03-15] MEDS: NUTRISOURCE FIBER 4 GM PACKET NG SCH ×3 (08:52→16:48)
[2021-03-15] MEDS: PROTEIN SUPPLEMENT (PROSTAT) 30 ML LIQUID GT SCH (08:53)
[2021-03-15] MEDS: SEVELAMER CARBONATE 800 MG POWD.PACK GT SCH (09:30)
[2021-03-15] MEDS: ACETAMINOPHEN 650 MG/20.3 ML LIQUID UDC PO PRN (09:45)
[2021-03-15] MEDS ORDERED: MAGNESIUM SULFATE/D5W 100 ML IV SCH (10:15)
[2021-03-15 11:36] VITALS: BP 106/69
[2021-03-15] MEDS: IV D5 1/2 NS 1000 ML 1,000 ML IV PRN (14:36)
[2021-03-15] MEDS: HYDROCODONE/APAP 5-325MG TABLET PO PRN (15:41)
[2021-03-15 15:44] VITALS: BP 96/64
[2021-03-15] MEDS ORDERED: VITAL AF 1.2 1,000 ML LIQUID GT PRN (15:45)
[2021-03-15] MEDS: FLUCONAZOLE 100 MG TABLET PO SCH (21:24)
[2021-03-15] MEDS: AMLODIPINE 5 MG TABLET GT SCH (21:24)
[2021-03-15] MEDS: ONDANSETRON 4 MG/2 ML VIAL IV PRN (21:41)
[2021-03-15] MEDS: LORAZEPAM 0.5 MG TABLET PO PRN (21:41)
[2021-03-15] MEDS: INSULIN GLARGINE,HUM 300 UNITS/3 ML CARTRIDGE SQ SCH (22:15)
[2021-03-16 00:15] VITALS: BP 110/57
[2021-03-16] MEDS: HYDROCODONE/APAP 5-325MG TABLET PO PRN ×3 (01:00→16:24)
[2021-03-16 04:25] VITALS: BP 117/62
[2021-03-16] MEDS: FERROUS SULFATE 300 MG/5 ML LIQUID UDC NG SCH ×2 (08:11→16:24)
[2021-03-16] MEDS: PANTOPRAZOLE ORAL SUSPENSION 40 MG SUSPDR.PKT NG SCH ×2 (08:11→20:44)
[2021-03-16] MEDS: ACIDOPHILUS/BULGARICUS CHEW TAB NG SCH ×2 (08:11→20:44)
[2021-03-16] MEDS: ASPIRIN 81 MG TAB.CHEW GT SCH (08:11)
[2021-03-16] MEDS: METOPROLOL TARTRATE 25 MG TABLET PO SCH ×2 (08:12→20:46)
[2021-03-16] MEDS: SEVELAMER CARBONATE 800 MG POWD.PACK GT SCH (08:13)
[2021-03-16] MEDS: NUTRISOURCE FIBER 4 GM PACKET NG SCH ×3 (08:13→16:24)
[2021-03-16] MEDS: Z GUARD REMEDY PASTE 57 GM TUBE TOP SCH ×2 (08:14→20:46)
[2021-03-16] MEDS: PROTEIN SUPPLEMENT (PROSTAT) 30 ML LIQUID GT SCH (08:14)
[2021-03-16] MEDS: IV D5 1/2 NS 1000 ML 1,000 ML IV PRN (08:18)
[2021-03-16] MEDS: METOCLOPRAMIDE HCL 10 MG TABLET GT PRN (08:33)
[2021-03-16 11:58] VITALS: BP 129/62
[2021-03-16] MEDS ORDERED: PROT30LI GT (12:01)
[2021-03-16] MEDS ORDERED: METO10TA3 GT (12:01)
[2021-03-16] MEDS ORDERED: NUT.237L65 GT (12:01)
[2021-03-16] MEDS ORDERED: LORA0.5T48 PO (12:01)
[2021-03-16] MEDS ORDERED: METO25TA6 PO (12:01)
[2021-03-16] MEDS ORDERED: MIDO5TAB4 PO (12:01)
[2021-03-16] MEDS ORDERED: ASPI81TA31 GT (12:01)
[2021-03-16] MEDS ORDERED: AMLO-212 GT (12:01)
[2021-03-16] MEDS ORDERED: SEVE0.8P GT (12:01)
[2021-03-16] MEDS ORDERED: FLUC100T PO (12:01)
[2021-03-16] MEDS ORDERED: ACID1TAB4 NG (12:01)
[2021-03-16] MEDS ORDERED: PANT40SU2 NG (12:01)
[2021-03-16] MEDS ORDERED: Wheat Dextrin NG (12:01)
[2021-03-16] MEDS ORDERED: POLY17PO4 PO (12:01)
[2021-03-16] MEDS ORDERED: FERR300L NG (12:01)
[2021-03-16] MEDS ORDERED: Insulin Glargine,Hum SQ (12:01)
[2021-03-16 16:00] VITALS: BP 125/61
[2021-03-16 20:25] VITALS: BP 132/66
[2021-03-16] MEDS: FLUCONAZOLE 100 MG TABLET PO SCH (20:44)
[2021-03-16] MEDS: AMLODIPINE 5 MG TABLET GT SCH (20:45)
[2021-03-16] MEDS: INSULIN GLARGINE,HUM 300 UNITS/3 ML CARTRIDGE SQ SCH (21:09)
[2021-03-17] VITALS: BP 133/65
[2021-03-17] MEDS: HYDROCODONE/APAP 5-325MG TABLET PO PRN ×2 (01:58→08:52)
[2021-03-17 04:25] VITALS: BP 128/68
[2021-03-17] MEDS: ASPIRIN 81 MG TAB.CHEW GT SCH (08:52)
[2021-03-17] MEDS: FERROUS SULFATE 300 MG/5 ML LIQUID UDC NG SCH (08:52)
[2021-03-17] MEDS: PANTOPRAZOLE ORAL SUSPENSION 40 MG SUSPDR.PKT NG SCH (08:52)
[2021-03-17] MEDS: ACIDOPHILUS/BULGARICUS CHEW TAB NG SCH (08:53)
[2021-03-17] MEDS: METOPROLOL TARTRATE 25 MG TABLET PO SCH (08:53)
[2021-03-17] MEDS: PROTEIN SUPPLEMENT (PROSTAT) 30 ML LIQUID GT SCH (08:54)
[2021-03-17] MEDS: SEVELAMER CARBONATE 800 MG POWD.PACK GT SCH (08:55)
[2021-03-17] MEDS: NUTRISOURCE FIBER 4 GM PACKET NG SCH ×2 (08:56→13:00)
[2021-03-17] MEDS: Z GUARD REMEDY PASTE 57 GM TUBE TOP SCH (08:56)
[2021-03-17 12:06] VITALS: BP 135/66
[2021-03-17 16:13] VITALS: BP 141/67
== END 2021-03-17 16:50 | DRG 5 ==
LOC: ER 12:46 → DOU3 20:25 → OBSER 22:31 → CCU 23:18 → TELE-TD3 03-04 19:15 → TELE3 03-05 20:18 → CCU 03-05 20:20 → DOU3 03-06 06:31 → TELE-TD3 03-06 07:36 → TELE3 03-10 10:44 → TELE-TD3 03-10 15:03 → CCU 03-11 08:10 → TELE3 03-14 20:50
PROVIDERS: ADMIT Internal Medicine; ATTEND Nurse Practitioner Acute Care
PROC: B547ZZA Ultrasonography of Left Subclavian Vein, Guidance (ICD-10-PCS; 2021-02-05)
PROC: 05H633Z Insertion of Infusion Device into Left Subclavian Vein, Percutaneous Approach (ICD-10-PCS; 2021-02-05)
PROC: 0BH17EZ Insertion of Endotracheal Airway into Trachea, Via Natural or Artificial Opening (ICD-10-PCS; principal; 2021-02-06)
PROC: 5A1955Z Respiratory Ventilation, Greater than 96 Consecutive Hours (ICD-10-PCS; principal; 2021-02-06)
PROC: B548ZZA Ultrasonography of Superior Vena Cava, Guidance (ICD-10-PCS; 2021-02-07)
PROC: 02HV33Z Insertion of Infusion Device into Superior Vena Cava, Percutaneous Approach (ICD-10-PCS; 2021-02-07)
PROC: 30243N1 Transfusion of Nonautologous Red Blood Cells into Central Vein, Percutaneous Approach (ICD-10-PCS; 2021-02-07)
PROC: 0W3P8ZZ Control Bleeding in Gastrointestinal Tract, Via Natural or Artificial Opening Endoscopic (ICD-10-PCS; 2021-02-17)
PROC: 0DH63UZ Insertion of Feeding Device into Stomach, Percutaneous Approach (ICD-10-PCS; 2021-02-23)
PROC: 0B110F4 Bypass Trachea to Cutaneous with Tracheostomy Device, Open Approach (ICD-10-PCS; 2021-02-25)
PROC: 02H633Z Insertion of Infusion Device into Right Atrium, Percutaneous Approach (ICD-10-PCS; 2021-02-28)
PROC: B518YZA Fluoroscopy of Superior Vena Cava using Other Contrast, Guidance (ICD-10-PCS; 2021-02-28)
PROC: 0JH63XZ Insertion of Tunneled Vascular Access Device into Chest Subcutaneous Tissue and Fascia, Percutaneous Approach (ICD-10-PCS; 2021-02-28)
PROC: 5A1D70Z Performance of Urinary Filtration, Intermittent, Less than 6 Hours Per Day (ICD-10-PCS; 2021-02-28)
DX: A41.51 Sepsis due to Escherichia coli [E. coli] (principal); N17.0 Acute kidney failure with tubular necrosis; R65.21 Severe sepsis with septic shock; J69.0 Pneumonitis due to inhalation of food and vomit; G92.8 Other toxic encephalopathy; I50.31 Acute diastolic (congestive) heart failure; I21.A1 Myocardial infarction type 2; K31.82 Dieulafoy lesion (hemorrhagic) of stomach and duodenum; J96.01 Acute respiratory failure with hypoxia; D68.59 Other primary thrombophilia; D50.9 Iron deficiency anemia, unspecified; D69.6 Thrombocytopenia, unspecified; E78.5 Hyperlipidemia, unspecified; I69.354 Hemiplegia and hemiparesis following cerebral infarction affecting left non-dominant side; J96.02 Acute respiratory failure with hypercapnia; N18.2 Chronic kidney disease, stage 2 (mild); F41.9 Anxiety disorder, unspecified; E11.22 Type 2 diabetes mellitus with diabetic chronic kidney disease; E11.43 Type 2 diabetes mellitus with diabetic autonomic (poly)neuropathy; I25.2 Old myocardial infarction; K31.84 Gastroparesis; R74.01 Elevation of levels of liver transaminase levels; Z90.49 Acquired absence of other specified parts of digestive tract; Z91.012 Allergy to eggs; N13.6 Pyonephrosis; K56.41 Fecal impaction; I13.0 Hypertensive heart and chronic kidney disease with heart failure and stage 1 through stage 4 chronic kidney disease, or unspecified chronic kidney disease; E66.01 Morbid (severe) obesity due to excess calories; Z20.822 Contact with and (suspected) exposure to COVID-19; Z86.16 Personal history of COVID-19; Z68.25 Body mass index [BMI] 25.0-25.9, adult; N40.1 Benign prostatic hyperplasia with lower urinary tract symptoms; I25.10 Atherosclerotic heart disease of native coronary artery without angina pectoris; Z22.322 Carrier or suspected carrier of Methicillin resistant Staphylococcus aureus; A04.9 Bacterial intestinal infection, unspecified; Z16.12 Extended spectrum beta lactamase (ESBL) resistance; E11.65 Type 2 diabetes mellitus with hyperglycemia; H40.9 Unspecified glaucoma; K29.70 Gastritis, unspecified, without bleeding; Z87.01 Personal history of pneumonia (recurrent); B37.49 Other urogenital candidiasis; D17.79 Benign lipomatous neoplasm of other sites; Z79.4 Long term (current) use of insulin
CPT/HCPCS: 36415; 36569; 36600; 43761; 70030-TC; 70450; 71045; 71250; 74018; 76770; 83550; 83605; 83690; 83735; 83970; 84100; 84155; 84156; 84165; 84300; 84443; 85018; 85025; 85610; 85730; 86140; 86625; 86706; 86850; 86900; 86901; 86920; 87040; 87046; 87070; 87075; 87077; 87086; 87177; 87340; 87400; 90937; 93005; 93307; 94002; 94003; 94760; 97161; A4217; A4649; A4663; A6209; C9113; G0378; J0360; J0456; J0690; J0692; J0885; J1200; J1205; J1644; J1815; J1940; J2060; J2185; J2250; J2270; J2370; J2405; J2543; J2765; J3010; J3370; J3475; J3480; J3490; J3535; J7030; J7040; J7042; J7050; J7060; J8597; P9016; P9047; Q9963; Q9967; U0003

== ENCOUNTER 2023-01-30 02:54 | Inpatient (IN) | payer MEDICAID, MEDICARE ==
[~2023-01-30] VITALS: Ht 167.6 cm; Wt 85.4 kg
[~2023-01-30 02:54] MED LIST: ACET-2154 PO; ACID1TAB4 NG; AMLO-212 GT; ASCO500C18 PO; ASPI-1420 PO; ASPI81TA31 GT; CALC-494 PO; CAPS60CR4 TP; CLON0.1T PO; CLON1TAB PO; CYCL30DR EACHEYE; DOCU-141 PO; DORZ10DR11 EACHEYE; FAMO1TAB29 PO; FERR300L NG; FERR325T24 PO; FLUC100T PO; GLUC1KIT IM; Insulin Glargine,Hum SQ; LACT1CAP7 PO; LORA0.5T48 PO; METO10TA3 GT; METO25TA3 PO; METO25TA6 PO; MIDO5TAB4 PO; NUT.237L65 GT; OLOP2.5D12 EACHEYE; OXYC-128 PO; PANT40SU2 NG; POLY17PO4 PO; PROT30LI GT; SENN-261 PO; SEVE0.8P GT; TAMS-3 PO; TRAV5DRO EACHEYE; Wheat Dextrin NG
[2023-01-30 03:48] LABS: BASOPHILS % (AUTO) 0.2 % (0.0-2.0); EOSINOPHILS % (AUTO) 0.4 % (0.0-7.0); HEMATOCRIT 34.4 % (36.7-47.1); HEMOGLOBIN 11.3 g/dL (12.5-16.3); LYMPHOCYTES # (AUTO) 0.3 K/uL (0.8-4.8); LYMPHOCYTES % (AUTO) 3.3 % (20.5-51.5); MEAN CORPUSCULAR HEMOGLOBIN 29.6 uug (23.8-33.4); MEAN CORPUSCULAR HGB CONC 33 g/dL (32.5-36.3); MEAN CORPUSCULAR VOLUME 89.8 fL (73.0-96.2); MONOCYTES # (AUTO) 0.4 K/uL (0.1-1.30); MONOCYTES % (AUTO) 4.3 % (0.0-11.0); NEUTROPHILS # (AUTO) 7.5 K/uL (1.8-8.9); NEUTROPHILS % (AUTO) 91.8 % (38.5-71.5); PLATELET COUNT (AUTO) 216 K/uL (152-348); RED BLOOD CELL COUNT(AUTO) 3.84 MIL/uL (4.06-5.63); WHITE BLOOD COUNT (AUTO) 8.2 K/uL (3.6-10.2)
[2023-01-30 03:59] LABS: CALCIUM 8.8 mg/dL (8.5-10.1); CARBON DIOXIDE 24 mmol/L (21-32); CHLORIDE 103 mmol/L (98-107); CREATININE 2.2 mg/dL (0.6-1.3); GLUCOSE 283 mg/dL (74-106); POTASSIUM 4.5 mmol/L (3.5-5.1); SODIUM SERUM 134 mmol/L (136-145); UREA NITROGEN, BLOOD 50 mg/dL (7-18)
[2023-01-30 04:02] LABS: PHOSPHOROUS 4.1 mg/dL (2.5-4.9)
[2023-01-30 04:06] LABS: DIFFERENTIAL COMMENT 1
[2023-01-30 04:12] LABS: ALANINE AMINOTRANSFERASE 36 U/L (16-63); ALKALINE PHOSPHATASE 153 U/L (50-136); ASPARTATE AMINOTRANSFERASE 8 U/L (15-37); BILIRUBIN,DIRECT 0.3 mg/dL (0.0-0.2); BILIRUBIN,TOTAL 0.6 mg/dL (0.2-1.0); NT-PRO BNP 46216 pg/mL (0-125); TOTAL PROTEIN, SERUM 6.3 g/dL (6.4-8.2)
[2023-01-30] MEDS ORDERED: FUROSEMIDE 40 MG/4 ML VIAL IV ONE (04:45)
[2023-01-30] MEDS ORDERED: MAG-151 PO (05:14)
[2023-01-30] MEDS ORDERED: CYCL5.5D3 EACHEYE (05:14)
[2023-01-30] MEDS ORDERED: MELA3CAP2 PO (05:14)
[2023-01-30] MEDS ORDERED: POLY17PO4 PO (05:14)
[2023-01-30] MEDS ORDERED: DOCU100C36 PO (05:14)
[2023-01-30] MEDS ORDERED: SODI50SP NS (05:14)
[2023-01-30] MEDS ORDERED: RANO10003 PO (05:14)
[2023-01-30] MEDS ORDERED: glargine insulin SUBCUT (05:14)
[2023-01-30] MEDS ORDERED: HYDR-3976 PO (05:14)
[2023-01-30] MEDS ORDERED: DORZ10DR EACHEYE (05:14)
[2023-01-30] MEDS ORDERED: MIDO5TAB5 PO (05:14)
[2023-01-30] MEDS ORDERED: GUAI237L83 PO (05:14)
[2023-01-30] MEDS ORDERED: METO25TA6 PO (05:14)
[2023-01-30] MEDS ORDERED: GLUC1KIT IJ (05:14)
[2023-01-30] MEDS ORDERED: FURO20TA4 PO (05:14)
[2023-01-30] MEDS ORDERED: FERR-68 PO (05:14)
[2023-01-30] MEDS ORDERED: PANT40TA49 PO (05:14)
[2023-01-30] MEDS ORDERED: ALBU2.5V38 IH (05:14)
[2023-01-30] MEDS ORDERED: MINE133E RC (05:14)
[2023-01-30] MEDS ORDERED: ATOR20TA PO (05:14)
[2023-01-30] MEDS ORDERED: FINA5TAB11 PO (05:14)
[2023-01-30] MEDS ORDERED: BISA10SU11 RC (05:14)
[2023-01-30] MEDS ORDERED: METH4TAB16 PO (05:14)
[2023-01-30] MEDS ORDERED: NALO4SPR NS (05:14)
[2023-01-30] MEDS ORDERED: BACL10TA PO (05:14)
[2023-01-30] MEDS ORDERED: TICA90TA PO (05:14)
[2023-01-30] MEDS ORDERED: ASPI81TA31 PO (05:14)
[2023-01-30] MEDS ORDERED: LACT10SO58 PO (05:14)
[2023-01-30] MEDS ORDERED: ACET-3117 PO (05:14)
[2023-01-30] MEDS ORDERED: VIT1TABL46 PO (05:14)
[2023-01-30] MEDS ORDERED: ONDA4TAB5 PO (05:14)
[2023-01-30] MEDS ORDERED: TAMS-3 PO (05:14)
[2023-01-30] MEDS ORDERED: DEXTROSE 50% 50 ML DISP.SYRIN IV PRN (06:00)
[2023-01-30] MEDS ORDERED: hydrALAZINE HCL 20 MG/1 ML VIAL IV PRN (06:00)
[2023-01-30] MEDS ORDERED: VITAL AF 1.2 1,000 ML LIQUID GT PRN (06:00)
[2023-01-30] MEDS: BLOOD SUGAR DIAGNOSTIC 1 EACH STRIP VI SCH ×4 (07:50→21:00)
[2023-01-30] MEDS: INSULIN REGULAR, HUMAN 300 UNIT/3 ML VIAL SQ PRN ×3 (07:56→16:33)
[2023-01-30] MEDS ORDERED: PANTOPRAZOLE SODIUM 40 MG TABLET.DR PO ONE ×2 (08:15→17:04)
[2023-01-30] MEDS: PANTOPRAZOLE SODIUM 40 MG TABLET.DR PO SCH ×2 (08:16→17:05)
[2023-01-30] MEDS ORDERED: SEVELAMER CARBONATE 800 MG POWD.PACK GT SCH (09:00)
[2023-01-30] MEDS ORDERED: CLONAZEPAM 1 MG TABLET PO SCH (09:00)
[2023-01-30] MEDS ORDERED: DORZOLAMIDE/TIMOLOL OPHT DROP 10 ML BOTTLE EACHEYE SCH (09:00)
[2023-01-30] MEDS ORDERED: ASPIRIN 81 MG TAB.CHEW ONE (09:03)
[2023-01-30] MEDS ORDERED: MIRALAX 17 GM POWD.PACK ONE (09:03)
[2023-01-30] MEDS ORDERED: HEPARIN SODIUM,PORCINE 5,000 UNITS/ML VIAL ONE (09:04)
[2023-01-30] MEDS ORDERED: FUROSEMIDE 40 MG/4 ML VIAL ONE (09:04)
[2023-01-30] MEDS ORDERED: BACLOFEN 10 MG TABLET ONE ×2 (09:04→17:04)
[2023-01-30] MEDS: BACLOFEN 10 MG TABLET PO SCH ×2 (09:06→17:05)
[2023-01-30] MEDS: ASPIRIN 81 MG TAB.CHEW PO SCH (09:06)
[2023-01-30] MEDS: TICAGRELOR 90 MG TABLET PO SCH ×2 (09:07→21:00)
[2023-01-30] MEDS: METOPROLOL TARTRATE 25 MG TABLET PO SCH (09:12)
[2023-01-30] MEDS: MIRALAX 17 GM POWD.PACK PO SCH (09:12)
[2023-01-30] MEDS: RANOLAZINE 500 MG TAB.ER.12H PO SCH ×2 (09:13→17:06)
[2023-01-30] MEDS: DORZOLAMIDE 2% OPHT DROP 10 ML BOTTLE EACHEYE SCH ×2 (09:14→17:07)
[2023-01-30] MEDS: FUROSEMIDE 40 MG/4 ML VIAL IV SCH (09:14)
[2023-01-30] MEDS: HEPARIN SODIUM,PORCINE 5,000 UNITS/ML VIAL SQ SCH (09:16)
[2023-01-30] MEDS ORDERED: FINASTERIDE 5 MG TABLET ONE (09:17)
[2023-01-30] MEDS: FINASTERIDE 5 MG TABLET PO SCH (09:17)
[2023-01-30] MEDS ORDERED: AMLODIPINE 5 MG TABLET GT SCH (21:00)
[2023-01-30] MEDS ORDERED: MORPHINE SULFATE 2 MG/1 ML DISP.SYRIN ONE (21:38)
[2023-01-30] MEDS: MORPHINE SULFATE 2 MG/1 ML DISP.SYRIN IVP PRN (21:41)
[2023-01-30 23:08] VITALS: BP 123/79; TEMP 97.7; O2SAT 100
[2023-01-31] MEDS: ATORVASTATIN 20 MG TABLET PO SCH ×2 (02:13→20:27)
[2023-01-31] MEDS: TAMSULOSIN HCL 0.4 MG CAP.SR.24H PO SCH ×2 (02:13→20:19)
[2023-01-31] MEDS: FUROSEMIDE 40 MG/4 ML VIAL IV SCH ×3 (02:14→20:19)
[2023-01-31] MEDS: METOPROLOL TARTRATE 25 MG TABLET PO SCH ×3 (02:15→20:19)
[2023-01-31] MEDS: HEPARIN SODIUM,PORCINE 5,000 UNITS/ML VIAL SQ SCH ×3 (02:16→20:29)
[2023-01-31] MEDS: MORPHINE SULFATE 2 MG/1 ML DISP.SYRIN IVP PRN ×2 (02:27→20:18)
[2023-01-31 04:20] VITALS: BP 131/77; TEMP 97.4; O2SAT 98
[2023-01-31 06:28] LABS: BASOPHILS % (AUTO) 0.5 % (0.0-2.0); EOSINOPHILS # (AUTO) 0.3 K/uL (0.0-0.7); EOSINOPHILS % (AUTO) 3.5 % (0.0-7.0); HEMATOCRIT 35.7 % (36.7-47.1); HEMOGLOBIN 11.6 g/dL (12.5-16.3); LYMPHOCYTES # (AUTO) 0.6 K/uL (0.8-4.8); LYMPHOCYTES % (AUTO) 8.2 % (20.5-51.5); MEAN CORPUSCULAR HEMOGLOBIN 29.4 uug (23.8-33.4); MEAN CORPUSCULAR HGB CONC 33 g/dL (32.5-36.3); MEAN CORPUSCULAR VOLUME 90.5 fL (73.0-96.2); MONOCYTES # (AUTO) 0.4 K/uL (0.1-1.30); MONOCYTES % (AUTO) 4.8 % (0.0-11.0); NEUTROPHILS # (AUTO) 6.6 K/uL (1.8-8.9); PLATELET COUNT (AUTO) 230 K/uL (152-348); RED BLOOD CELL COUNT(AUTO) 3.94 MIL/uL (4.06-5.63); RED CELL DISTRIBUTION WIDTH 17.1 % (12.1-16.2); WHITE BLOOD COUNT (AUTO) 7.9 K/uL (3.6-10.2)
[2023-01-31 06:32] LABS: DIFFERENTIAL COMMENT 1
[2023-01-31 06:38] LABS: ALBUMIN 3.2 g/dL (3.4-5.0); BILIRUBIN,TOTAL 0.6 mg/dL (0.2-1.0); CALCIUM 8.6 mg/dL (8.5-10.1); CREATININE 2.4 mg/dL (0.6-1.3); PHOSPHOROUS 4.5 mg/dL (2.5-4.9); POTASSIUM 5.7 mmol/L (3.5-5.1); TOTAL PROTEIN, SERUM 6.7 g/dL (6.4-8.2)
[2023-01-31] MEDS: BLOOD SUGAR DIAGNOSTIC 1 EACH STRIP VI SCH ×4 (06:50→20:37)
[2023-01-31] MEDS: PANTOPRAZOLE SODIUM 40 MG TABLET.DR PO SCH ×2 (06:54→17:09)
[2023-01-31] MEDS: INSULIN REGULAR, HUMAN 300 UNIT/3 ML VIAL SQ PRN ×3 (06:56→17:39)
[2023-01-31] MEDS ORDERED: SODIUM POLYSTYRENE SULFONATE 15 G/60 ML LIQUID UDC PO ONE (08:15)
[2023-01-31] MEDS: BACLOFEN 10 MG TABLET PO SCH ×2 (08:55→17:09)
[2023-01-31] MEDS: FINASTERIDE 5 MG TABLET PO SCH (08:55)
[2023-01-31] MEDS: RANOLAZINE 500 MG TAB.ER.12H PO SCH ×2 (08:55→17:09)
[2023-01-31] MEDS: ASPIRIN 81 MG TAB.CHEW PO SCH (08:56)
[2023-01-31] MEDS: MIRALAX 17 GM POWD.PACK PO SCH (09:02)
[2023-01-31] MEDS: ONDANSETRON 4 MG/2 ML VIAL IV PRN (09:24)
[2023-01-31] MEDS: TICAGRELOR 90 MG TABLET PO SCH ×2 (10:21→20:27)
[2023-01-31] MEDS: DORZOLAMIDE 2% OPHT DROP 10 ML BOTTLE EACHEYE SCH ×2 (10:21→17:09)
[2023-01-31 11:38] VITALS: BP 98/63; TEMP 98; O2SAT 100
[2023-01-31 15:43] VITALS: BP 119/74; TEMP 98.2; O2SAT 100
[2023-01-31 16:05] LABS: *BILIRUBIN,URIN NEGATIVE (NEGATIVE); *BLOOD, URINE 1+ (NEGATIVE); *CLARITY,URINE CLEAR (CLEAR); *COLOR,URINE YELLOW (YELLOW); *KETONES,URINE NEGATIVE (NEGATIVE); *PROTEIN,URINE NEGATIVE (NEGATIVE); LEUKOCYTE ESTERASE ,URINE 1+ (NEGATIVE); NITRITE, URINE NEGATIVE (NEGATIVE); PH,URINE 5.5 (5.0-8.0); UGLUCOSE NEGATIVE (NEGATIVE)
[2023-01-31 16:20] LABS: *CHLORIDE RNDM,URINE 100 mmol/L (100-250); *POTASSIUM RNDM,URINE 35 mmol/L (25-125); *SODIUM RNDM,URINE 74 mmol/L (40-220)
[2023-01-31 16:36] LABS: BACTERIA,URINE MANY /HPF (NONE SEEN); WBC,URINE 20-50 /HPF (0-3)
[2023-01-31 16:38] LABS: SQUAMOUS EPITHELIAL CELL,UR FEW /HPF (NONE SEEN)
[2023-01-31 20:00] VITALS: BP 121/71; TEMP 98.3; O2SAT 99
[2023-01-31 20:20] LABS: CALCIUM 7.9 mg/dL (8.5-10.1); CREATININE 2.4 mg/dL (0.6-1.3); POTASSIUM 4.9 mmol/L (3.5-5.1)
[2023-01-31] MEDS: INSULIN REGULAR, HUMAN 300 UNITS/3 ML VIAL SQ PRN (20:41)
[2023-01-31] MEDS ORDERED: CEFTRIAXONE /D5W 50ML IVPB **ER PYXIS IV ONE (21:46)
[2023-01-31] MEDS: CEFTRIAXONE 1 G in IV DEXTROSE 5% 50 ML IV SCH (22:25)
[2023-02-01] VITALS: BP 133/78; TEMP 97.9; O2SAT 99
[2023-02-01] MEDS: MORPHINE SULFATE 2 MG/1 ML DISP.SYRIN IVP PRN ×2 (01:13→17:56)
[2023-02-01 04:00] VITALS: BP 137/72; TEMP 97.5; O2SAT 98
[2023-02-01] MEDS: PANTOPRAZOLE SODIUM 40 MG TABLET.DR PO SCH ×2 (06:17→17:47)
[2023-02-01] MEDS: ACETAMINOPHEN 325 MG TABLET PO PRN (06:20)
[2023-02-01 08:15] LABS: BASOPHILS # (AUTO) 0.1 K/UL (0.0-0.2); DIFFERENTIAL COMMENT 0; EOSINOPHILS # (AUTO) 0.3 K/uL (0.0-0.7); EOSINOPHILS % (AUTO) 3.8 % (0.0-7.0); HEMATOCRIT 34.6 % (36.7-47.1); HEMOGLOBIN 11.3 g/dL (12.5-16.3); LYMPHOCYTES # (AUTO) 0.5 K/uL (0.8-4.8); LYMPHOCYTES % (AUTO) 6.2 % (20.5-51.5); MEAN CORPUSCULAR HEMOGLOBIN 29.4 uug (23.8-33.4); MEAN CORPUSCULAR HGB CONC 33 g/dL (32.5-36.3); MEAN CORPUSCULAR VOLUME 90.3 fL (73.0-96.2); MONOCYTES # (AUTO) 0.4 K/uL (0.1-1.30); MONOCYTES % (AUTO) 5.3 % (0.0-11.0); NEUTROPHILS # (AUTO) 6.6 K/uL (1.8-8.9); NEUTROPHILS % (AUTO) 83.7 % (38.5-71.5); PLATELET COUNT (AUTO) 221 K/uL (152-348); RED BLOOD CELL COUNT(AUTO) 3.83 MIL/uL (4.06-5.63); RED CELL DISTRIBUTION WIDTH 17.2 % (12.1-16.2); WHITE BLOOD COUNT (AUTO) 7.9 K/uL (3.6-10.2)
[2023-02-01 08:26] LABS: CALCIUM 8.5 mg/dL (8.5-10.1); CREATININE 2.4 mg/dL (0.6-1.3); MAGNESIUM 1.9 mg/dL (1.8-2.4); POTASSIUM 4.4 mmol/L (3.5-5.1)
[2023-02-01] MEDS: BLOOD SUGAR DIAGNOSTIC 1 EACH STRIP VI SCH ×4 (08:32→21:00)
[2023-02-01] MEDS: DORZOLAMIDE 2% OPHT DROP 10 ML BOTTLE EACHEYE SCH ×2 (08:46→17:46)
[2023-02-01] MEDS: HEPARIN SODIUM,PORCINE 5,000 UNITS/ML VIAL SQ SCH ×3 (08:47→23:06)
[2023-02-01] MEDS: FUROSEMIDE 40 MG/4 ML VIAL IV SCH ×2 (08:49→23:08)
[2023-02-01] MEDS: METOPROLOL TARTRATE 25 MG TABLET PO SCH ×2 (08:51→22:42)
[2023-02-01] MEDS: RANOLAZINE 500 MG TAB.ER.12H PO SCH ×2 (08:51→17:46)
[2023-02-01] MEDS: TICAGRELOR 90 MG TABLET PO SCH ×2 (08:52→21:00)
[2023-02-01] MEDS: FINASTERIDE 5 MG TABLET PO SCH (08:53)
[2023-02-01] MEDS: ASPIRIN 81 MG TAB.CHEW PO SCH (08:53)
[2023-02-01] MEDS: MIRALAX 17 GM POWD.PACK PO SCH (08:53)
[2023-02-01] MEDS: MUPIROCIN 2% OINT 22 GM TUBE NS SCH ×2 (09:00→22:55)
[2023-02-01] MEDS: BACLOFEN 10 MG TABLET PO SCH ×2 (09:08→17:47)
[2023-02-01 12:00] VITALS: BP 121/67; TEMP 98.2; O2SAT 98
[2023-02-01] MEDS: INSULIN REGULAR, HUMAN 300 UNIT/3 ML VIAL SQ PRN ×2 (13:03→17:58)
[2023-02-01] MEDS: ONDANSETRON 4 MG/2 ML VIAL IV PRN (19:01)
[2023-02-01 20:00] VITALS: BP 114/73; TEMP 97.6; O2SAT 97
[2023-02-01] MEDS: ATORVASTATIN 20 MG TABLET PO SCH (21:00)
[2023-02-01] MEDS: TAMSULOSIN HCL 0.4 MG CAP.SR.24H PO SCH (22:34)
[2023-02-01] MEDS: CEFTRIAXONE 1 G in IV DEXTROSE 5% 50 ML IV SCH (23:09)
[2023-02-02] VITALS: BP 123/78; TEMP 97.5; O2SAT 98
[2023-02-02] MEDS: MORPHINE SULFATE 2 MG/1 ML DISP.SYRIN IVP PRN ×3 (04:39→22:45)
[2023-02-02] MEDS: PANTOPRAZOLE SODIUM 40 MG TABLET.DR PO SCH ×2 (06:32→16:30)
[2023-02-02] MEDS: BLOOD SUGAR DIAGNOSTIC 1 EACH STRIP VI SCH ×4 (06:45→20:40)
[2023-02-02 07:27] LABS: BASOPHILS % (AUTO) 0.6 % (0.0-2.0); DIFFERENTIAL COMMENT 0; EOSINOPHILS # (AUTO) 0.2 K/uL (0.0-0.7); EOSINOPHILS % (AUTO) 3.7 % (0.0-7.0); HEMATOCRIT 33.9 % (36.7-47.1); HEMOGLOBIN 11.1 g/dL (12.5-16.3); LYMPHOCYTES # (AUTO) 0.4 K/uL (0.8-4.8); LYMPHOCYTES % (AUTO) 6.3 % (20.5-51.5); MEAN CORPUSCULAR HEMOGLOBIN 29.7 uug (23.8-33.4); MEAN CORPUSCULAR HGB CONC 33 g/dL (32.5-36.3); MEAN CORPUSCULAR VOLUME 90.3 fL (73.0-96.2); MONOCYTES # (AUTO) 0.3 K/uL (0.1-1.30); MONOCYTES % (AUTO) 5.2 % (0.0-11.0); NEUTROPHILS # (AUTO) 5.5 K/uL (1.8-8.9); NEUTROPHILS % (AUTO) 84.2 % (38.5-71.5); PLATELET COUNT (AUTO) 209 K/uL (152-348); RED BLOOD CELL COUNT(AUTO) 3.75 MIL/uL (4.06-5.63); RED CELL DISTRIBUTION WIDTH 16.9 % (12.1-16.2); WHITE BLOOD COUNT (AUTO) 6.5 K/uL (3.6-10.2)
[2023-02-02 07:36] LABS: THYROID STIMULATING HORMONE 2.125 mIU/mL (0.358-3.740)
[2023-02-02 07:37] LABS: CALCIUM 8.2 mg/dL (8.5-10.1); CREATININE 2.6 mg/dL (0.6-1.3); MAGNESIUM 2.1 mg/dL (1.8-2.4); PHOSPHOROUS 5.1 mg/dL (2.5-4.9); POTASSIUM 4.3 mmol/L (3.5-5.1)
[2023-02-02 07:52] VITALS: BP 144/84; TEMP 97.8; O2SAT 100
[2023-02-02] MEDS: INSULIN REGULAR, HUMAN 300 UNIT/3 ML VIAL SQ PRN ×3 (08:03→20:30)
[2023-02-02] MEDS: MUPIROCIN 2% OINT 22 GM TUBE NS SCH ×2 (08:15→20:40)
[2023-02-02] MEDS: RANOLAZINE 500 MG TAB.ER.12H PO SCH ×2 (08:16→16:30)
[2023-02-02] MEDS: MIRALAX 17 GM POWD.PACK PO SCH (08:16)
[2023-02-02] MEDS: BACLOFEN 10 MG TABLET PO SCH ×2 (08:16→16:30)
[2023-02-02] MEDS: ASPIRIN 81 MG TAB.CHEW PO SCH (08:16)
[2023-02-02] MEDS: METOPROLOL TARTRATE 25 MG TABLET PO SCH ×2 (08:16→20:30)
[2023-02-02] MEDS: TICAGRELOR 90 MG TABLET PO SCH ×2 (08:17→20:58)
[2023-02-02] MEDS: FUROSEMIDE 40 MG/4 ML VIAL IV SCH ×2 (08:17→20:31)
[2023-02-02] MEDS: DORZOLAMIDE 2% OPHT DROP 10 ML BOTTLE EACHEYE SCH ×2 (08:18→16:31)
[2023-02-02] MEDS: FINASTERIDE 5 MG TABLET PO SCH (08:24)
[2023-02-02 11:53] VITALS: BP 104/65; TEMP 97.9; O2SAT 96
[2023-02-02 15:36] VITALS: BP 127/78; TEMP 97.9; O2SAT 98
[2023-02-02 20:18] VITALS: BP 134/79; TEMP 98; O2SAT 98
[2023-02-02] MEDS: TAMSULOSIN HCL 0.4 MG CAP.SR.24H PO SCH (20:27)
[2023-02-02] MEDS: ATORVASTATIN 20 MG TABLET PO SCH (20:28)
[2023-02-02] MEDS: HEPARIN SODIUM,PORCINE 5,000 UNITS/ML VIAL SQ SCH (20:34)
[2023-02-02] MEDS: CEFTRIAXONE 1 G in IV DEXTROSE 5% 50 ML IV SCH (21:00)
[2023-02-02] MEDS: ONDANSETRON 4 MG/2 ML VIAL IV PRN (22:45)
[2023-02-03 00:35] VITALS: BP 115/77; TEMP 97.7; O2SAT 98
[2023-02-03] MEDS: MORPHINE SULFATE 2 MG/1 ML DISP.SYRIN IVP PRN ×2 (03:59→20:44)
[2023-02-03 04:09] VITALS: BP 130/81; TEMP 98; O2SAT 99
[2023-02-03] MEDS: PANTOPRAZOLE SODIUM 40 MG TABLET.DR PO SCH ×2 (06:47→16:46)
[2023-02-03] MEDS: BLOOD SUGAR DIAGNOSTIC 1 EACH STRIP VI SCH ×5 (07:34→21:12)
[2023-02-03] MEDS: INSULIN REGULAR, HUMAN 300 UNIT/3 ML VIAL SQ PRN ×3 (07:53→16:49)
[2023-02-03] MEDS: FUROSEMIDE 40 MG/4 ML VIAL IV SCH ×2 (09:16→20:46)
[2023-02-03] MEDS: HEPARIN SODIUM,PORCINE 5,000 UNITS/ML VIAL SQ SCH ×2 (09:17→20:54)
[2023-02-03] MEDS: ASPIRIN 81 MG TAB.CHEW PO SCH (09:18)
[2023-02-03] MEDS: RANOLAZINE 500 MG TAB.ER.12H PO SCH ×2 (09:18→16:46)
[2023-02-03] MEDS: METOPROLOL TARTRATE 25 MG TABLET PO SCH ×2 (09:21→20:57)
[2023-02-03] MEDS: GLIMEPIRIDE 2 MG TABLET PO SCH ×2 (09:22→16:45)
[2023-02-03] MEDS: BACLOFEN 10 MG TABLET PO SCH ×2 (09:22→16:46)
[2023-02-03] MEDS: FINASTERIDE 5 MG TABLET PO SCH (09:22)
[2023-02-03] MEDS: MIRALAX 17 GM POWD.PACK PO SCH (09:23)
[2023-02-03] MEDS: MUPIROCIN 2% OINT 22 GM TUBE NS SCH ×2 (09:23→21:05)
[2023-02-03] MEDS: TICAGRELOR 90 MG TABLET PO SCH ×2 (09:26→20:52)
[2023-02-03] MEDS: DORZOLAMIDE 2% OPHT DROP 10 ML BOTTLE EACHEYE SCH ×2 (09:26→16:50)
[2023-02-03] MEDS: ACETAMINOPHEN 325 MG TABLET PO PRN (09:37)
[2023-02-03 11:59] VITALS: BP 94/60; TEMP 97; O2SAT 100
[2023-02-03 16:00] VITALS: BP 137/85; TEMP 97.6; O2SAT 92
[2023-02-03 20:15] VITALS: BP 125/85; TEMP 97.6; O2SAT 92
[2023-02-03 20:35] VITALS: BP 143/76; TEMP 98.6; O2SAT 97
[2023-02-03] MEDS: CEFTRIAXONE 1 G in IV DEXTROSE 5% 50 ML IV SCH (20:52)
[2023-02-03] MEDS: TAMSULOSIN HCL 0.4 MG CAP.SR.24H PO SCH (20:57)
[2023-02-03] MEDS: ATORVASTATIN 20 MG TABLET PO SCH (20:58)
[2023-02-03] MEDS: INSULIN REGULAR, HUMAN 300 UNITS/3 ML VIAL SQ PRN (21:10)
[2023-02-04] VITALS: BP 130/81; TEMP 98; O2SAT 99
[2023-02-04] MEDS: MORPHINE SULFATE 2 MG/1 ML DISP.SYRIN IVP PRN ×3 (02:04→23:35)
[2023-02-04 04:00] VITALS: BP 120/77; TEMP 97.6; O2SAT 100
[2023-02-04] MEDS: ONDANSETRON 4 MG/2 ML VIAL IV PRN ×3 (04:57→23:31)
[2023-02-04] MEDS: PANTOPRAZOLE SODIUM 40 MG TABLET.DR PO SCH ×2 (05:58→16:21)
[2023-02-04] MEDS: BLOOD SUGAR DIAGNOSTIC 1 EACH STRIP VI SCH ×4 (06:42→20:24)
[2023-02-04] MEDS: INSULIN REGULAR, HUMAN 300 UNIT/3 ML VIAL SQ PRN ×2 (07:53→11:31)
[2023-02-04] MEDS: HEPARIN SODIUM,PORCINE 5,000 UNITS/ML VIAL SQ SCH ×2 (08:00→20:23)
[2023-02-04] MEDS: BACLOFEN 10 MG TABLET PO SCH ×2 (08:08→16:20)
[2023-02-04] MEDS: METOPROLOL TARTRATE 25 MG TABLET PO SCH ×2 (08:09→20:10)
[2023-02-04] MEDS: FINASTERIDE 5 MG TABLET PO SCH (08:09)
[2023-02-04] MEDS: FUROSEMIDE 40 MG/4 ML VIAL IV SCH ×2 (08:09→20:10)
[2023-02-04] MEDS: RANOLAZINE 500 MG TAB.ER.12H PO SCH ×2 (08:09→16:21)
[2023-02-04] MEDS: ACETAMINOPHEN 325 MG TABLET PO PRN ×2 (08:10→20:39)
[2023-02-04] MEDS: MUPIROCIN 2% OINT 22 GM TUBE NS SCH ×2 (08:10→20:25)
[2023-02-04] MEDS: GLIMEPIRIDE 2 MG TABLET PO SCH ×2 (08:10→16:21)
[2023-02-04] MEDS: ASPIRIN 81 MG TAB.CHEW PO SCH (08:10)
[2023-02-04] MEDS: DORZOLAMIDE 2% OPHT DROP 10 ML BOTTLE EACHEYE SCH ×2 (08:11→16:22)
[2023-02-04] MEDS: MIRALAX 17 GM POWD.PACK PO SCH (08:11)
[2023-02-04] MEDS: TICAGRELOR 90 MG TABLET PO SCH ×2 (08:11→20:15)
[2023-02-04] MEDS: MEROPENEM 500 MG in IV NORMAL SALINE 50 ML IV SCH ×2 (09:30→20:20)
[2023-02-04 11:58] VITALS: BP 117/70; TEMP 97.7; O2SAT 95
[2023-02-04 12:03] LABS: BASOPHILS % (AUTO) 0.6 % (0.0-2.0); EOSINOPHILS # (AUTO) 0.2 K/uL (0.0-0.7); EOSINOPHILS % (AUTO) 2.2 % (0.0-7.0); HEMATOCRIT 33.5 % (36.7-47.1); LYMPHOCYTES # (AUTO) 0.2 K/uL (0.8-4.8); MEAN CORPUSCULAR HEMOGLOBIN 29.6 uug (23.8-33.4); MEAN CORPUSCULAR HGB CONC 33 g/dL (32.5-36.3); MEAN CORPUSCULAR VOLUME 89.9 fL (73.0-96.2); MONOCYTES # (AUTO) 0.5 K/uL (0.1-1.30); MONOCYTES % (AUTO) 6.8 % (0.0-11.0); NEUTROPHILS # (AUTO) 6.6 K/uL (1.8-8.9); NEUTROPHILS % (AUTO) 87.4 % (38.5-71.5); PLATELET COUNT (AUTO) 188 K/uL (152-348); RED BLOOD CELL COUNT(AUTO) 3.72 MIL/uL (4.06-5.63); RED CELL DISTRIBUTION WIDTH 17.4 % (12.1-16.2); WHITE BLOOD COUNT (AUTO) 7.5 K/uL (3.6-10.2)
[2023-02-04 12:41] LABS: BILIRUBIN,TOTAL 0.4 mg/dL (0.2-1.0); CALCIUM 8.8 mg/dL (8.5-10.1); CREATININE 2.8 mg/dL (0.6-1.3); MAGNESIUM 2.1 mg/dL (1.8-2.4); PHOSPHOROUS 5.4 mg/dL (2.5-4.9); POTASSIUM 5.2 mmol/L (3.5-5.1); TOTAL PROTEIN, SERUM 6.5 g/dL (6.4-8.2)
[2023-02-04 12:58] LABS: DIFFERENTIAL COMMENT 1
[2023-02-04] MEDS ORDERED: MEDIHONEY= THERAHONEY 1.5 OZ TUBE TOP PRN (15:00)
[2023-02-04] MEDS: MEDIHONEY= THERAHONEY 1.5 OZ TUBE TOP SCH (15:25)
[2023-02-04 16:09] VITALS: BP 127/77; TEMP 97.6; O2SAT 100
[2023-02-04 20:00] VITALS: BP 130/76; TEMP 98; O2SAT 97
[2023-02-04] MEDS: ATORVASTATIN 20 MG TABLET PO SCH (20:10)
[2023-02-04] MEDS: TAMSULOSIN HCL 0.4 MG CAP.SR.24H PO SCH (20:10)
[2023-02-04] MEDS: INSULIN REGULAR, HUMAN 300 UNITS/3 ML VIAL SQ PRN (20:50)
[2023-02-05] VITALS: BP 127/77; TEMP 97.6; O2SAT 100
[2023-02-05] MEDS: PANTOPRAZOLE SODIUM 40 MG TABLET.DR PO SCH ×2 (05:32→16:45)
[2023-02-05] MEDS: BLOOD SUGAR DIAGNOSTIC 1 EACH STRIP VI SCH ×4 (06:31→20:42)
[2023-02-05] MEDS: INSULIN REGULAR, HUMAN 300 UNIT/3 ML VIAL SQ PRN ×3 (07:42→16:43)
[2023-02-05] MEDS: MIRALAX 17 GM POWD.PACK PO SCH (09:02)
[2023-02-05] MEDS: FINASTERIDE 5 MG TABLET PO SCH (09:02)
[2023-02-05] MEDS: RANOLAZINE 500 MG TAB.ER.12H PO SCH ×2 (09:02→16:45)
[2023-02-05] MEDS: FUROSEMIDE 40 MG/4 ML VIAL IV SCH ×2 (09:02→20:32)
[2023-02-05] MEDS: ASPIRIN 81 MG TAB.CHEW PO SCH (09:03)
[2023-02-05] MEDS: GLIMEPIRIDE 2 MG TABLET PO SCH ×2 (09:04→16:45)
[2023-02-05] MEDS: HEPARIN SODIUM,PORCINE 5,000 UNITS/ML VIAL SQ SCH ×2 (09:05→20:33)
[2023-02-05] MEDS: BACLOFEN 10 MG TABLET PO SCH ×2 (09:05→16:45)
[2023-02-05] MEDS: METOPROLOL TARTRATE 25 MG TABLET PO SCH ×2 (09:06→20:32)
[2023-02-05] MEDS: MEDIHONEY= THERAHONEY 1.5 OZ TUBE TOP SCH (09:07)
[2023-02-05] MEDS: MUPIROCIN 2% OINT 22 GM TUBE NS SCH ×2 (09:07→20:37)
[2023-02-05] MEDS: DORZOLAMIDE 2% OPHT DROP 10 ML BOTTLE EACHEYE SCH ×2 (09:13→16:44)
[2023-02-05] MEDS: MEROPENEM 500 MG in IV NORMAL SALINE 50 ML IV SCH ×2 (09:13→20:32)
[2023-02-05] MEDS: TICAGRELOR 90 MG TABLET PO SCH ×2 (09:14→20:37)
[2023-02-05 10:04] LABS: CALCIUM 8.6 mg/dL (8.5-10.1); CREATININE 2.9 mg/dL (0.6-1.3); MAGNESIUM 1.8 mg/dL (1.8-2.4); POTASSIUM 4.5 mmol/L (3.5-5.1)
[2023-02-05 11:11] VITALS: BP 137/80; TEMP 98.4; O2SAT 96
[2023-02-05] MEDS: ONDANSETRON 4 MG/2 ML VIAL IV PRN ×2 (11:19→20:44)
[2023-02-05] MEDS: MORPHINE SULFATE 2 MG/1 ML DISP.SYRIN IVP PRN ×2 (11:19→20:56)
[2023-02-05 15:58] VITALS: BP 130/76; TEMP 98.2; O2SAT 93
[2023-02-05 19:56] VITALS: BP 125/80; TEMP 97.9; O2SAT 94
[2023-02-05] MEDS: TAMSULOSIN HCL 0.4 MG CAP.SR.24H PO SCH (20:32)
[2023-02-05] MEDS: ATORVASTATIN 20 MG TABLET PO SCH (20:32)
[2023-02-05 23:54] VITALS: BP 126/79; TEMP 97.8; O2SAT 98
[2023-02-06] MEDS: MORPHINE SULFATE 2 MG/1 ML DISP.SYRIN IVP PRN ×3 (02:50→23:21)
[2023-02-06 05:29] VITALS: BP 137/71; TEMP 97.7; O2SAT 97
[2023-02-06] MEDS: PANTOPRAZOLE SODIUM 40 MG TABLET.DR PO SCH ×2 (06:02→17:12)
[2023-02-06] MEDS: BLOOD SUGAR DIAGNOSTIC 1 EACH STRIP VI SCH ×4 (06:32→20:57)
[2023-02-06] MEDS: MEROPENEM 500 MG in IV NORMAL SALINE 50 ML IV SCH ×2 (09:37→20:47)
[2023-02-06] MEDS: MIRALAX 17 GM POWD.PACK PO SCH (09:37)
[2023-02-06] MEDS: BUMETANIDE 1 MG TABLET PO SCH (09:37)
[2023-02-06] MEDS: DORZOLAMIDE 2% OPHT DROP 10 ML BOTTLE EACHEYE SCH ×2 (09:38→17:12)
[2023-02-06] MEDS: ASPIRIN 81 MG TAB.CHEW PO SCH (09:39)
[2023-02-06] MEDS: GLIMEPIRIDE 2 MG TABLET PO SCH ×2 (09:39→17:12)
[2023-02-06] MEDS: RANOLAZINE 500 MG TAB.ER.12H PO SCH ×2 (09:39→17:12)
[2023-02-06] MEDS: BACLOFEN 10 MG TABLET PO SCH ×2 (09:39→17:12)
[2023-02-06] MEDS: FINASTERIDE 5 MG TABLET PO SCH (09:39)
[2023-02-06] MEDS: HEPARIN SODIUM,PORCINE 5,000 UNITS/ML VIAL SQ SCH ×2 (09:41→20:56)
[2023-02-06] MEDS: METOPROLOL TARTRATE 25 MG TABLET PO SCH ×2 (09:56→20:50)
[2023-02-06] MEDS: MEDIHONEY= THERAHONEY 1.5 OZ TUBE TOP SCH (09:56)
[2023-02-06] MEDS: TICAGRELOR 90 MG TABLET PO SCH ×2 (09:56→20:50)
[2023-02-06] MEDS: MUPIROCIN 2% OINT 22 GM TUBE NS SCH ×2 (09:56→20:53)
[2023-02-06 11:26] VITALS: BP 142/67; TEMP 98.2; O2SAT 97
[2023-02-06] MEDS ORDERED: AMOX-430 PO (12:22)
[2023-02-06] MEDS ORDERED: BUME1TAB8 PO (12:22)
[2023-02-06] MEDS ORDERED: GLIM2TAB PO (12:22)
[2023-02-06] MEDS: ONDANSETRON 4 MG/2 ML VIAL IV PRN ×2 (15:04→23:21)
[2023-02-06 15:16] VITALS: BP 108/70; TEMP 98.7; O2SAT 96
[2023-02-06 20:32] VITALS: BP 135/78; TEMP 97.9; O2SAT 94
[2023-02-06] MEDS: TAMSULOSIN HCL 0.4 MG CAP.SR.24H PO SCH (20:48)
[2023-02-06] MEDS: ATORVASTATIN 20 MG TABLET PO SCH (20:48)
[2023-02-07 00:22] VITALS: BP 128/85; TEMP 97.9; O2SAT 100
[2023-02-07 04:22] VITALS: BP 139/83; TEMP 97.7; O2SAT 98
[2023-02-07] MEDS: PANTOPRAZOLE SODIUM 40 MG TABLET.DR PO SCH ×2 (06:20→16:50)
[2023-02-07] MEDS: BLOOD SUGAR DIAGNOSTIC 1 EACH STRIP VI SCH ×3 (06:20→16:49)
[2023-02-07 08:36] LABS: CALCIUM 8.4 mg/dL (8.5-10.1); CREATININE 3.1 mg/dL (0.6-1.3); POTASSIUM 4.1 mmol/L (3.5-5.1)
[2023-02-07] MEDS: DORZOLAMIDE 2% OPHT DROP 10 ML BOTTLE EACHEYE SCH ×2 (08:42→16:50)
[2023-02-07] MEDS: MIRALAX 17 GM POWD.PACK PO SCH (08:42)
[2023-02-07] MEDS: ASPIRIN 81 MG TAB.CHEW PO SCH (08:42)
[2023-02-07] MEDS: TICAGRELOR 90 MG TABLET PO SCH (08:42)
[2023-02-07] MEDS: RANOLAZINE 500 MG TAB.ER.12H PO SCH ×2 (08:43→16:50)
[2023-02-07] MEDS: FINASTERIDE 5 MG TABLET PO SCH (08:43)
[2023-02-07] MEDS: GLIMEPIRIDE 2 MG TABLET PO SCH ×2 (08:43→16:50)
[2023-02-07] MEDS: METOPROLOL TARTRATE 25 MG TABLET PO SCH (08:48)
[2023-02-07] MEDS: MUPIROCIN 2% OINT 22 GM TUBE NS SCH (08:49)
[2023-02-07] MEDS: MEDIHONEY= THERAHONEY 1.5 OZ TUBE TOP SCH (08:49)
[2023-02-07] MEDS: HEPARIN SODIUM,PORCINE 5,000 UNITS/ML VIAL SQ SCH (08:50)
[2023-02-07] MEDS: BACLOFEN 10 MG TABLET PO SCH ×2 (08:59→16:50)
[2023-02-07] MEDS: BUMETANIDE 1 MG TABLET PO SCH (09:15)
[2023-02-07] MEDS: MEROPENEM 500 MG in IV NORMAL SALINE 50 ML IV SCH (09:15)
[2023-02-07 11:35] VITALS: BP 121/71; TEMP 97.5; O2SAT 97
[2023-02-07] MEDS: MORPHINE SULFATE 2 MG/1 ML DISP.SYRIN IVP PRN (14:07)
[2023-02-07] MEDS: ONDANSETRON 4 MG/2 ML VIAL IV PRN (14:07)
[2023-02-07 16:20] VITALS: BP 118/65; TEMP 97.5; O2SAT 95
== END 2023-02-07 19:15 | DRG 194 ==
LOC: ER 03:00 → TRANSITION 05:48 → TELE3 22:18
PROVIDERS: ADMIT Internal Medicine; ATTEND Internal Medicine
PROC: B547ZZA Ultrasonography of Left Subclavian Vein, Guidance (ICD-10-PCS; principal; 2023-02-05)
PROC: 05H633Z Insertion of Infusion Device into Left Subclavian Vein, Percutaneous Approach (ICD-10-PCS; principal; 2023-02-05)
DX: I13.0 Hypertensive heart and chronic kidney disease with heart failure and stage 1 through stage 4 chronic kidney disease, or unspecified chronic kidney disease (principal); N17.0 Acute kidney failure with tubular necrosis; E44.0 Moderate protein-calorie malnutrition; R53.2 Functional quadriplegia; D68.69 Other thrombophilia; I27.20 Pulmonary hypertension, unspecified; E88.09 Other disorders of plasma-protein metabolism, not elsewhere classified; E27.8 Other specified disorders of adrenal gland; J90 Pleural effusion, not elsewhere classified; N39.0 Urinary tract infection, site not specified; E11.22 Type 2 diabetes mellitus with diabetic chronic kidney disease; B96.20 Unspecified Escherichia coli [E. coli] as the cause of diseases classified elsewhere; E11.42 Type 2 diabetes mellitus with diabetic polyneuropathy; E11.43 Type 2 diabetes mellitus with diabetic autonomic (poly)neuropathy; N50.89 Other specified disorders of the male genital organs; Z16.24 Resistance to multiple antibiotics; Z22.322 Carrier or suspected carrier of Methicillin resistant Staphylococcus aureus; Z74.09 Other reduced mobility; E78.5 Hyperlipidemia, unspecified; E87.5 Hyperkalemia; I25.10 Atherosclerotic heart disease of native coronary artery without angina pectoris; I25.2 Old myocardial infarction; M24.542 Contracture, left hand; Z79.82 Long term (current) use of aspirin; Z86.16 Personal history of COVID-19; Z86.73 Personal history of transient ischemic attack (TIA), and cerebral infarction without residual deficits; Z98.61 Coronary angioplasty status; M24.541 Contracture, right hand; N18.9 Chronic kidney disease, unspecified; N40.0 Benign prostatic hyperplasia without lower urinary tract symptoms; Z87.01 Personal history of pneumonia (recurrent); Z90.49 Acquired absence of other specified parts of digestive tract; I25.5 Ischemic cardiomyopathy; D17.9 Benign lipomatous neoplasm, unspecified; E11.65 Type 2 diabetes mellitus with hyperglycemia; E66.9 Obesity, unspecified; Z68.30 Body mass index [BMI] 30.0-30.9, adult; J98.11 Atelectasis; Z89.422 Acquired absence of other left toe(s); Z89.421 Acquired absence of other right toe(s); S81.802A Unspecified open wound, left lower leg, initial encounter; S81.801A Unspecified open wound, right lower leg, initial encounter; X58.XXXA Exposure to other specified factors, initial encounter; Y93.9 Activity, unspecified; Y92.129 Unspecified place in nursing home as the place of occurrence of the external cause; Z95.5 Presence of coronary angioplasty implant and graft; I50.23 Acute on chronic systolic (congestive) heart failure; E11.51 Type 2 diabetes mellitus with diabetic peripheral angiopathy without gangrene; Z79.02 Long term (current) use of antithrombotics/antiplatelets; N40.1 Benign prostatic hyperplasia with lower urinary tract symptoms; Z20.822 Contact with and (suspected) exposure to COVID-19; I07.1 Rheumatic tricuspid insufficiency
CPT/HCPCS: 36415; 71045; 76870; 83735; 84100; 84133; 84300; 84443; 84484; 85025; 85730; 93005; 93307; A4663; A6209; A6213; G0378; J0696; J1644; J1815; J1940; J2185; J2270; J2405

== ENCOUNTER 2023-03-07 13:08 | Inpatient (IN) | payer MEDICAID, MEDICARE ==
[~2023-03-07] VITALS: Ht 167.6 cm; Wt 85.7 kg
[~2023-03-07 13:08] MED LIST changes: -ACID1TAB4 NG; +ALBU2.5V38 IH; -AMLO-212 GT; +AMOX-430 PO; -ASCO500C18 PO; -ASPI-1420 PO; -ASPI81TA31 GT; +ASPI81TA31 PO; +ATOR20TA PO; +BACL10TA PO; +BISA10SU11 RC; +BUME1TAB8 PO; -CALC-494 PO; -CAPS60CR4 TP; -CLON0.1T PO; -CLON1TAB PO; -CYCL30DR EACHEYE; +CYCL5.5D3 EACHEYE; +DORZ10DR EACHEYE; -DORZ10DR11 EACHEYE; -FAMO1TAB29 PO; +FERR-68 PO; -FERR300L NG; -FERR325T24 PO; +FINA5TAB11 PO; -FLUC100T PO; +GLIM2TAB PO; +HYDR-3976 PO; -Insulin Glargine,Hum SQ; +LACT10SO58 PO; -LACT1CAP7 PO; -LORA0.5T48 PO; +MAG-151 PO; +MELA3CAP2 PO; -METO10TA3 GT; -METO25TA3 PO; -MIDO5TAB4 PO; +MIDO5TAB5 PO; +MINE133E RC; +NALO4SPR NS; -NUT.237L65 GT; -OLOP2.5D12 EACHEYE; +ONDA4TAB5 PO; -OXYC-128 PO; -PANT40SU2 NG; +PANT40TA49 PO; -PROT30LI GT; +RANO10003 PO; -SENN-261 PO; -SEVE0.8P GT; +SODI50SP NS; +TICA90TA PO; -TRAV5DRO EACHEYE; +VIT1TABL46 PO; -Wheat Dextrin NG; +glargine insulin SUBCUT
[2023-03-07 14:10] LABS: BASOPHILS # (AUTO) 0.1 K/UL (0.0-0.2); BASOPHILS % (AUTO) 1.7 % (0.0-2.0); DIFFERENTIAL COMMENT 0; EOSINOPHILS # (AUTO) 0.4 K/uL (0.0-0.7); EOSINOPHILS % (AUTO) 4.5 % (0.0-7.0); HEMATOCRIT 30.9 % (36.7-47.1); LYMPHOCYTES # (AUTO) 0.3 K/uL (0.8-4.8); LYMPHOCYTES % (AUTO) 3.3 % (20.5-51.5); MEAN CORPUSCULAR HEMOGLOBIN 29.1 uug (23.8-33.4); MEAN CORPUSCULAR HGB CONC 32 g/dL (32.5-36.3); MEAN CORPUSCULAR VOLUME 89.7 fL (73.0-96.2); MONOCYTES # (AUTO) 0.5 K/uL (0.1-1.30); MONOCYTES % (AUTO) 6.2 % (0.0-11.0); NEUTROPHILS # (AUTO) 6.9 K/uL (1.8-8.9); NEUTROPHILS % (AUTO) 84.3 % (38.5-71.5); PLATELET COUNT (AUTO) 226 K/uL (152-348); RED BLOOD CELL COUNT(AUTO) 3.45 MIL/uL (4.06-5.63); RED CELL DISTRIBUTION WIDTH 16.2 % (12.1-16.2); WHITE BLOOD COUNT (AUTO) 8.1 K/uL (3.6-10.2)
[2023-03-07] MEDS ORDERED: ACETAMINOPHEN 325 MG TABLET ONE (14:14)
[2023-03-07] MEDS ORDERED: ACETAMINOPHEN 325 MG TABLET PO ONE (14:15)
[2023-03-07] MEDS ORDERED: ONDANSETRON 4 MG/2 ML VIAL IV ONE (14:45)
[2023-03-07] MEDS ORDERED: HYDROMORPHONE 1 MG/1 ML DISP.SYRIN IV ONE (14:45)
[2023-03-07 14:48] LABS: CALCIUM 8.1 mg/dL (8.5-10.1); CARBON DIOXIDE 18 mmol/L (21-32); CHLORIDE 103 mmol/L (98-107); CREATININE 2.8 mg/dL (0.6-1.3); GLUCOSE 174 mg/dL (74-106); POTASSIUM 3.9 mmol/L (3.5-5.1); SODIUM SERUM 135 mmol/L (136-145); UREA NITROGEN, BLOOD 57 mg/dL (7-18)
[2023-03-07 15:06] LABS: ALANINE AMINOTRANSFERASE 54 U/L (16-63); ALBUMIN 2.7 g/dL (3.4-5.0); ALKALINE PHOSPHATASE 291 U/L (50-136); ASPARTATE AMINOTRANSFERASE 13 U/L (15-37); BILIRUBIN,DIRECT 0.5 mg/dL (0.0-0.2); TOTAL PROTEIN, SERUM 6.4 g/dL (6.4-8.2)
[2023-03-07] MEDS ORDERED: ONDANSETRON ODT 4 MG TAB.RAPDIS SL ONE (15:15)
[2023-03-07] MEDS ORDERED: HYDROMORPHONE 1 MG/1 ML DISP.SYRIN IM ONE (15:15)
[2023-03-07] MEDS ORDERED: ONDANSETRON ODT 4 MG TAB.RAPDIS ONE (15:20)
[2023-03-07] MEDS ORDERED: HYDROMORPHONE 1 MG/1 ML DISP.SYRIN ONE (15:21)
[2023-03-07] MEDS ORDERED: MAGNESIUM HYDROXIDE 30 ML LIQUID UDC PO PRN (23:45)
[2023-03-07] MEDS ORDERED: ZOLPIDEM 5 MG TABLET PO PRN (23:45)
[2023-03-08] MEDS ORDERED: DEXTROSE 50% 50 ML DISP.SYRIN IV PRN
[2023-03-08 05:50] VITALS: BP 124/71; TEMP 98.2; O2SAT 99
[2023-03-08 06:33] LABS: BASOPHILS % (AUTO) 0.3 % (0.0-2.0); EOSINOPHILS # (AUTO) 0.1 K/uL (0.0-0.7); EOSINOPHILS % (AUTO) 1.6 % (0.0-7.0); HEMATOCRIT 31.1 % (36.7-47.1); HEMOGLOBIN 10.2 g/dL (12.5-16.3); LYMPHOCYTES # (AUTO) 0.3 K/uL (0.8-4.8); LYMPHOCYTES % (AUTO) 3.5 % (20.5-51.5); MEAN CORPUSCULAR HEMOGLOBIN 29.5 uug (23.8-33.4); MEAN CORPUSCULAR HGB CONC 33 g/dL (32.5-36.3); MEAN CORPUSCULAR VOLUME 89.7 fL (73.0-96.2); MONOCYTES # (AUTO) 0.6 K/uL (0.1-1.30); MONOCYTES % (AUTO) 7.2 % (0.0-11.0); NEUTROPHILS # (AUTO) 7.1 K/uL (1.8-8.9); NEUTROPHILS % (AUTO) 87.4 % (38.5-71.5); PLATELET COUNT (AUTO) 240 K/uL (152-348); RED BLOOD CELL COUNT(AUTO) 3.46 MIL/uL (4.06-5.63); RED CELL DISTRIBUTION WIDTH 16.6 % (12.1-16.2); WHITE BLOOD COUNT (AUTO) 8.1 K/uL (3.6-10.2)
[2023-03-08 06:49] LABS: DIFFERENTIAL COMMENT 1
[2023-03-08 07:00] LABS: CALCIUM 8.1 mg/dL (8.5-10.1); MAGNESIUM 2.1 mg/dL (1.8-2.4); PHOSPHOROUS 4.5 mg/dL (2.5-4.9); POTASSIUM 4.1 mmol/L (3.5-5.1)
[2023-03-08] MEDS: BLOOD SUGAR DIAGNOSTIC 1 EACH STRIP VI SCH ×4 (07:06→20:21)
[2023-03-08] MEDS: FUROSEMIDE 40 MG/4 ML VIAL IV SCH ×2 (08:34→20:22)
[2023-03-08] MEDS: PANTOPRAZOLE SODIUM 40 MG VIAL IV SCH (08:35)
[2023-03-08] MEDS: FINASTERIDE 5 MG TABLET PO SCH (08:38)
[2023-03-08] MEDS: ASPIRIN 81 MG TAB.CHEW PO SCH (08:38)
[2023-03-08] MEDS: HEPARIN SODIUM,PORCINE 5,000 UNITS/ML VIAL SQ SCH ×2 (08:40→20:22)
[2023-03-08] MEDS: ONDANSETRON 4 MG/2 ML VIAL IV PRN (08:44)
[2023-03-08] MEDS: METOPROLOL SUCCINATE XL 25 MG TAB.SR.24H PO SCH (08:52)
[2023-03-08 09:00] VITALS: BP 139/79; TEMP 97.9
[2023-03-08] MEDS ORDERED: FUROSEMIDE 40 MG/4 ML VIAL IV SCH (09:00)
[2023-03-08] MEDS ORDERED: METOPROLOL TARTRATE 25 MG TABLET PO SCH (09:00)
[2023-03-08] MEDS: INSULIN REGULAR, HUMAN 300 UNIT/3 ML VIAL SQ PRN ×3 (09:03→20:23)
[2023-03-08] MEDS ORDERED: INSU3INS6 SQ (10:57)
[2023-03-08] MEDS: TICAGRELOR 90 MG TABLET PO SCH ×2 (10:58→21:14)
[2023-03-08 11:10] VITALS: BP 132/80; TEMP 98.2; O2SAT 100
[2023-03-08] MEDS: BISACODYL 10 MG SUPP.RECT RC PRN (12:23)
[2023-03-08 15:02] VITALS: BP 129/79; TEMP 98.2; O2SAT 98
[2023-03-08] MEDS ORDERED: FLEET ENEMA 133 ML BOTTLE RC ONE (18:30)
[2023-03-08 18:38] LABS: *CREATININE,URINE 32.5 mg/dL (30-125); *URINE TOTAL PROTEIN RANDOM 16.1 mg/dL (<150/24HR)
[2023-03-08 19:02] LABS: *BILIRUBIN,URIN NEGATIVE (NEGATIVE); *BLOOD, URINE NEGATIVE (NEGATIVE); *CLARITY,URINE CLEAR (CLEAR); *COLOR,URINE YELLOW (YELLOW); *KETONES,URINE NEGATIVE (NEGATIVE); *PROTEIN,URINE NEGATIVE (NEGATIVE); *UROBILINOGEN,URINE 0.2 E.U./dl (NORMAL); LEUKOCYTE ESTERASE ,URINE 1+ (NEGATIVE); NITRITE, URINE NEGATIVE (NEGATIVE); UGLUCOSE NEGATIVE (NEGATIVE)
[2023-03-08 19:04] LABS: RBC,URINE NONE SEEN /HPF (0-3)
[2023-03-08 19:05] LABS: BACTERIA,URINE MANY /HPF (NONE SEEN); SQUAMOUS EPITHELIAL CELL,UR FEW /HPF (NONE SEEN)
[2023-03-08 19:09] LABS: URIC ACID CRYSTALS,URINE MODERATE /HPF (NONE SEEN)
[2023-03-08 20:00] VITALS: BP 137/76; TEMP 98; O2SAT 99
[2023-03-08] MEDS: TAMSULOSIN HCL 0.4 MG CAP.SR.24H PO SCH (20:21)
[2023-03-08] MEDS: ATORVASTATIN 20 MG TABLET PO SCH (20:21)
[2023-03-09] VITALS (7 sets, daily range): BP systolic 121–140; BP diastolic 68–87; TEMP 97.7–98.4; O2SAT 98–100
[2023-03-09] MEDS: ACETAMINOPHEN 325 MG TABLET PO PRN ×2 (00:09→16:36)
[2023-03-09] MEDS: ONDANSETRON 4 MG/2 ML VIAL IV PRN (06:18)
[2023-03-09] MEDS: BLOOD SUGAR DIAGNOSTIC 1 EACH STRIP VI SCH ×4 (06:31→20:28)
[2023-03-09] MEDS: ASPIRIN 81 MG TAB.CHEW PO SCH (08:51)
[2023-03-09] MEDS: FINASTERIDE 5 MG TABLET PO SCH (08:51)
[2023-03-09] MEDS: FUROSEMIDE 40 MG/4 ML VIAL IV SCH ×2 (08:52→20:26)
[2023-03-09] MEDS: METOPROLOL SUCCINATE XL 25 MG TAB.SR.24H PO SCH (08:52)
[2023-03-09] MEDS: HEPARIN SODIUM,PORCINE 5,000 UNITS/ML VIAL SQ SCH ×2 (08:53→20:29)
[2023-03-09] MEDS: PANTOPRAZOLE SODIUM 40 MG VIAL IV SCH (08:53)
[2023-03-09] MEDS: TICAGRELOR 90 MG TABLET PO SCH ×2 (08:54→20:27)
[2023-03-09] MEDS: INSULIN REGULAR, HUMAN 300 UNIT/3 ML VIAL SQ PRN ×4 (09:04→20:29)
[2023-03-09 09:17] LABS: CALCIUM 8.1 mg/dL (8.5-10.1); CREATININE 2.8 mg/dL (0.6-1.3); POTASSIUM 3.9 mmol/L (3.5-5.1)
[2023-03-09] MEDS: REMEDY ESSENTIAL ZINC PASTE 113 GM TP PRN (17:03)
[2023-03-09] MEDS: CLOTRIMAZOLE 1% CREAM 30 GM TUBE TOP SCH (17:03)
[2023-03-09] MEDS: TAMSULOSIN HCL 0.4 MG CAP.SR.24H PO SCH (20:27)
[2023-03-09] MEDS: ATORVASTATIN 20 MG TABLET PO SCH (20:27)
[2023-03-10] VITALS (8 sets, daily range): BP systolic 106–144; BP diastolic 71–84; TEMP 97.2–98.2; O2SAT 97–100
[2023-03-10] MEDS: ONDANSETRON 4 MG/2 ML VIAL IV PRN (01:14)
[2023-03-10] MEDS: ACETAMINOPHEN 325 MG TABLET PO PRN ×2 (06:09→23:34)
[2023-03-10] MEDS: BLOOD SUGAR DIAGNOSTIC 1 EACH STRIP VI SCH ×4 (06:34→20:44)
[2023-03-10] MEDS: ASPIRIN 81 MG TAB.CHEW PO SCH (08:58)
[2023-03-10] MEDS: FUROSEMIDE 40 MG/4 ML VIAL IV SCH ×2 (08:58→20:47)
[2023-03-10] MEDS: PANTOPRAZOLE SODIUM 40 MG VIAL IV SCH (08:58)
[2023-03-10] MEDS: MUPIROCIN 2% OINT 22 GM TUBE NS SCH ×2 (08:58→20:46)
[2023-03-10] MEDS: METOPROLOL SUCCINATE XL 25 MG TAB.SR.24H PO SCH (08:59)
[2023-03-10] MEDS: HEPARIN SODIUM,PORCINE 5,000 UNITS/ML VIAL SQ SCH (09:00)
[2023-03-10] MEDS: CLOTRIMAZOLE 1% CREAM 30 GM TUBE TOP SCH ×2 (09:00→16:20)
[2023-03-10] MEDS: FINASTERIDE 5 MG TABLET PO SCH (09:00)
[2023-03-10] MEDS: TICAGRELOR 90 MG TABLET PO SCH ×2 (09:06→20:46)
[2023-03-10] MEDS: INSULIN REGULAR, HUMAN 300 UNIT/3 ML VIAL SQ PRN (16:22)
[2023-03-10] MEDS: ATORVASTATIN 20 MG TABLET PO SCH (20:45)
[2023-03-10] MEDS: TAMSULOSIN HCL 0.4 MG CAP.SR.24H PO SCH (20:45)
[2023-03-11 00:30] VITALS: BP 126/88; TEMP 97.8; O2SAT 100
[2023-03-11 04:05] VITALS: BP 134/77; TEMP 97.9; O2SAT 99
[2023-03-11] MEDS: PANTOPRAZOLE SODIUM 40 MG TABLET.DR PO SCH (06:04)
[2023-03-11] MEDS: BLOOD SUGAR DIAGNOSTIC 1 EACH STRIP VI SCH ×4 (06:08→20:45)
[2023-03-11 06:57] LABS: BASOPHILS % (AUTO) 0.5 % (0.0-2.0); EOSINOPHILS # (AUTO) 0.4 K/uL (0.0-0.7); HEMATOCRIT 30.9 % (36.7-47.1); HEMOGLOBIN 10.2 g/dL (12.5-16.3); LYMPHOCYTES # (AUTO) 0.4 K/uL (0.8-4.8); LYMPHOCYTES % (AUTO) 5.7 % (20.5-51.5); MEAN CORPUSCULAR HEMOGLOBIN 29.3 uug (23.8-33.4); MEAN CORPUSCULAR HGB CONC 33 g/dL (32.5-36.3); MEAN CORPUSCULAR VOLUME 88.9 fL (73.0-96.2); MONOCYTES # (AUTO) 0.7 K/uL (0.1-1.30); MONOCYTES % (AUTO) 9.2 % (0.0-11.0); NEUTROPHILS # (AUTO) 5.8 K/uL (1.8-8.9); NEUTROPHILS % (AUTO) 78.6 % (38.5-71.5); PLATELET COUNT (AUTO) 269 K/uL (152-348); RED BLOOD CELL COUNT(AUTO) 3.47 MIL/uL (4.06-5.63); RED CELL DISTRIBUTION WIDTH 15.7 % (12.1-16.2); WHITE BLOOD COUNT (AUTO) 7.4 K/uL (3.6-10.2)
[2023-03-11 07:06] LABS: DIFFERENTIAL COMMENT 1
[2023-03-11 07:12] LABS: ALBUMIN 2.7 g/dL (3.4-5.0); CREATININE 2.5 mg/dL (0.6-1.3); MAGNESIUM 2.1 mg/dL (1.8-2.4); PHOSPHOROUS 3.5 mg/dL (2.5-4.9); POTASSIUM 3.9 mmol/L (3.5-5.1); TOTAL PROTEIN, SERUM 6.7 g/dL (6.4-8.2)
[2023-03-11 07:19] LABS: CALCIUM 8.2 mg/dL (8.5-10.1)
[2023-03-11] MEDS: ACETAMINOPHEN 325 MG TABLET PO PRN (08:46)
[2023-03-11] MEDS: ASPIRIN 81 MG TAB.CHEW PO SCH (08:48)
[2023-03-11] MEDS: FINASTERIDE 5 MG TABLET PO SCH (08:48)
[2023-03-11] MEDS: FUROSEMIDE 40 MG/4 ML VIAL IV SCH ×2 (08:49→20:43)
[2023-03-11] MEDS: METOPROLOL SUCCINATE XL 25 MG TAB.SR.24H PO SCH (08:49)
[2023-03-11] MEDS: MUPIROCIN 2% OINT 22 GM TUBE NS SCH ×2 (09:08→20:41)
[2023-03-11] MEDS: CLOTRIMAZOLE 1% CREAM 30 GM TUBE TOP SCH ×2 (09:09→16:34)
[2023-03-11] MEDS: CEFTRIAXONE 1 G in IV DEXTROSE 5% 50 ML IV SCH (10:30)
[2023-03-11] MEDS: TICAGRELOR 90 MG TABLET PO SCH ×2 (11:08→20:42)
[2023-03-11 11:12] VITALS: BP 129/79; TEMP 98.2; O2SAT 100
[2023-03-11] MEDS: INSULIN REGULAR, HUMAN 300 UNIT/3 ML VIAL SQ PRN ×3 (11:17→20:48)
[2023-03-11] MEDS ORDERED: TRAMADOL HCL 50 MG TABLET PO PRN (16:30)
[2023-03-11 16:50] VITALS: BP 130/70; TEMP 98.4; O2SAT 100
[2023-03-11] MEDS: TRAMADOL HCL 50 MG TABLET PO PRN (18:01)
[2023-03-11 20:00] VITALS: BP 132/82; TEMP 97.6; O2SAT 100
[2023-03-11] MEDS: TAMSULOSIN HCL 0.4 MG CAP.SR.24H PO SCH (20:42)
[2023-03-11] MEDS: ATORVASTATIN 20 MG TABLET PO SCH (20:43)
[2023-03-11 21:30] VITALS: O2SAT 99
[2023-03-12] VITALS (9 sets, daily range): BP systolic 111–135; BP diastolic 73–79; TEMP 97.3–98.7; O2SAT 88–100
[2023-03-12] MEDS: ACETAMINOPHEN 325 MG TABLET PO PRN (02:59)
[2023-03-12] MEDS: ALBUTEROL SULFATE 2.5 MG/3 ML NEBU NEB PRN (04:55)
[2023-03-12] MEDS: PANTOPRAZOLE SODIUM 40 MG TABLET.DR PO SCH (06:02)
[2023-03-12] MEDS: BLOOD SUGAR DIAGNOSTIC 1 EACH STRIP VI SCH ×4 (06:33→20:49)
[2023-03-12 06:52] LABS: BASOPHILS # (AUTO) 0.1 K/UL (0.0-0.2); EOSINOPHILS # (AUTO) 0.6 K/uL (0.0-0.7); EOSINOPHILS % (AUTO) 6.9 % (0.0-7.0); HEMATOCRIT 31.8 % (36.7-47.1); HEMOGLOBIN 10.6 g/dL (12.5-16.3); LYMPHOCYTES # (AUTO) 0.5 K/uL (0.8-4.8); LYMPHOCYTES % (AUTO) 6.2 % (20.5-51.5); MEAN CORPUSCULAR HEMOGLOBIN 29.5 uug (23.8-33.4); MEAN CORPUSCULAR HGB CONC 33 g/dL (32.5-36.3); MEAN CORPUSCULAR VOLUME 88.8 fL (73.0-96.2); MONOCYTES # (AUTO) 0.6 K/uL (0.1-1.30); NEUTROPHILS # (AUTO) 6.5 K/uL (1.8-8.9); NEUTROPHILS % (AUTO) 78.9 % (38.5-71.5); PLATELET COUNT (AUTO) 257 K/uL (152-348); RED BLOOD CELL COUNT(AUTO) 3.58 MIL/uL (4.06-5.63); RED CELL DISTRIBUTION WIDTH 16.1 % (12.1-16.2); WHITE BLOOD COUNT (AUTO) 8.3 K/uL (3.6-10.2)
[2023-03-12 06:58] LABS: DIFFERENTIAL COMMENT 1
[2023-03-12 07:08] LABS: BILIRUBIN,TOTAL 1.3 mg/dL (0.2-1.0); CALCIUM 8.3 mg/dL (8.5-10.1); CREATININE 2.5 mg/dL (0.6-1.3); MAGNESIUM 2.2 mg/dL (1.8-2.4); PHOSPHOROUS 3.6 mg/dL (2.5-4.9); POTASSIUM 3.8 mmol/L (3.5-5.1)
[2023-03-12] MEDS: ASPIRIN 81 MG TAB.CHEW PO SCH (08:21)
[2023-03-12] MEDS: FUROSEMIDE 40 MG/4 ML VIAL IV SCH ×2 (08:21→20:44)
[2023-03-12] MEDS: FINASTERIDE 5 MG TABLET PO SCH (08:24)
[2023-03-12] MEDS: CLOTRIMAZOLE 1% CREAM 30 GM TUBE TOP SCH ×2 (08:25→17:29)
[2023-03-12] MEDS: REMEDY ESSENTIAL ZINC PASTE 113 GM TP PRN (08:25)
[2023-03-12] MEDS: MUPIROCIN 2% OINT 22 GM TUBE NS SCH ×2 (08:27→20:48)
[2023-03-12] MEDS ORDERED: POTASSIUM CHLORIDE 20 MEQ POWDER PACKET GT ONE (08:30)
[2023-03-12] MEDS: TICAGRELOR 90 MG TABLET PO SCH ×2 (08:30→20:47)
[2023-03-12] MEDS ORDERED: HYDROMORPHONE 1 MG/1 ML DISP.SYRIN IV ONE (08:45)
[2023-03-12] MEDS: METOPROLOL SUCCINATE XL 50 MG TAB.SR.24H PO SCH (08:54)
[2023-03-12] MEDS ORDERED: METOPROLOL SUCCINATE XL 25 MG TAB.SR.24H PO ONE (09:00)
[2023-03-12] MEDS: CEFTRIAXONE 1 G in IV DEXTROSE 5% 50 ML IV SCH (10:10)
[2023-03-12] MEDS ORDERED: DORZOLAMIDE 2% OPHT DROP 10 ML BOTTLE EACHEYE SCH (17:00)
[2023-03-12] MEDS: INSULIN REGULAR, HUMAN 300 UNIT/3 ML VIAL SQ PRN ×2 (17:13→20:56)
[2023-03-12] MEDS: DORZOLAMIDE 2% OPHT DROP 10 ML BOTTLE EACHEYE SCH (17:28)
[2023-03-12] MEDS: BACLOFEN 10 MG TABLET PO SCH (17:29)
[2023-03-12] MEDS: RANOLAZINE 500 MG TAB.ER.12H PO SCH (17:29)
[2023-03-12] MEDS: ONDANSETRON 4 MG/2 ML VIAL IV PRN (18:38)
[2023-03-12] MEDS: ATORVASTATIN 20 MG TABLET PO SCH (20:44)
[2023-03-12] MEDS: TAMSULOSIN HCL 0.4 MG CAP.SR.24H PO SCH (20:44)
[2023-03-12] MEDS: TRAMADOL HCL 50 MG TABLET PO PRN (23:17)
[2023-03-13] VITALS (7 sets, daily range): BP systolic 97–122; BP diastolic 61–76; TEMP 97.4–98.4; O2SAT 97–100
[2023-03-13] MEDS: ONDANSETRON 4 MG/2 ML VIAL IV PRN (00:36)
[2023-03-13] MEDS: PANTOPRAZOLE SODIUM 40 MG TABLET.DR PO SCH (06:04)
[2023-03-13] MEDS: BLOOD SUGAR DIAGNOSTIC 1 EACH STRIP VI SCH ×4 (06:36→20:47)
[2023-03-13] MEDS: ASPIRIN 81 MG TAB.CHEW PO SCH (08:47)
[2023-03-13] MEDS: FINASTERIDE 5 MG TABLET PO SCH (08:48)
[2023-03-13] MEDS: METOPROLOL SUCCINATE XL 50 MG TAB.SR.24H PO SCH (08:48)
[2023-03-13] MEDS: RANOLAZINE 500 MG TAB.ER.12H PO SCH ×2 (08:48→15:41)
[2023-03-13] MEDS: BACLOFEN 10 MG TABLET PO SCH ×2 (08:48→15:41)
[2023-03-13] MEDS: MUPIROCIN 2% OINT 22 GM TUBE NS SCH ×2 (08:49→20:46)
[2023-03-13] MEDS: FUROSEMIDE 40 MG/4 ML VIAL IV SCH ×2 (08:49→20:50)
[2023-03-13] MEDS: TICAGRELOR 90 MG TABLET PO SCH ×2 (08:50→20:41)
[2023-03-13] MEDS: DORZOLAMIDE 2% OPHT DROP 10 ML BOTTLE EACHEYE SCH ×2 (08:50→15:38)
[2023-03-13] MEDS: CLOTRIMAZOLE 1% CREAM 30 GM TUBE TOP SCH ×2 (08:51→15:42)
[2023-03-13] MEDS: CEFTRIAXONE 1 G in IV DEXTROSE 5% 50 ML IV SCH (09:01)
[2023-03-13] MEDS ORDERED: diphenhydrAMINE 1% CREAM 28.3 GM TUBE TP PRN (09:30)
[2023-03-13] MEDS: MEROPENEM 0.5 G in IV NORMAL SALINE 50 ML IV SCH ×2 (11:35→22:40)
[2023-03-13] MEDS ORDERED: MEROPENEM 0.5 G in IV NORMAL SALINE 50 ML IV SCH (14:00)
[2023-03-13] MEDS: ACETAMINOPHEN 325 MG TABLET PO PRN (14:14)
[2023-03-13] MEDS: ATORVASTATIN 20 MG TABLET PO SCH (20:41)
[2023-03-13] MEDS: TAMSULOSIN HCL 0.4 MG CAP.SR.24H PO SCH (20:41)
[2023-03-13] MEDS: BISACODYL 10 MG SUPP.RECT RC PRN (22:47)
[2023-03-14] VITALS (7 sets, daily range): BP systolic 97–109; BP diastolic 45–65; TEMP 97.2–98.3; O2SAT 97–100
[2023-03-14] MEDS: INSULIN REGULAR, HUMAN 300 UNIT/3 ML VIAL SQ PRN ×2 (00:06→09:10)
[2023-03-14] MEDS: PANTOPRAZOLE SODIUM 40 MG TABLET.DR PO SCH (06:25)
[2023-03-14] MEDS: BLOOD SUGAR DIAGNOSTIC 1 EACH STRIP VI SCH ×2 (06:42→11:37)
[2023-03-14 06:44] LABS: BASOPHILS # (AUTO) 0.1 K/UL (0.0-0.2); BASOPHILS % (AUTO) 0.7 % (0.0-2.0); EOSINOPHILS # (AUTO) 0.4 K/uL (0.0-0.7); EOSINOPHILS % (AUTO) 3.9 % (0.0-7.0); HEMATOCRIT 31.5 % (36.7-47.1); HEMOGLOBIN 10.3 g/dL (12.5-16.3); LYMPHOCYTES # (AUTO) 0.4 K/uL (0.8-4.8); LYMPHOCYTES % (AUTO) 3.8 % (20.5-51.5); MEAN CORPUSCULAR HEMOGLOBIN 29.4 uug (23.8-33.4); MEAN CORPUSCULAR HGB CONC 33 g/dL (32.5-36.3); MEAN CORPUSCULAR VOLUME 89.5 fL (73.0-96.2); MONOCYTES # (AUTO) 0.8 K/uL (0.1-1.30); MONOCYTES % (AUTO) 8.5 % (0.0-11.0); NEUTROPHILS % (AUTO) 83.1 % (38.5-71.5); PLATELET COUNT (AUTO) 217 K/uL (152-348); RED BLOOD CELL COUNT(AUTO) 3.51 MIL/uL (4.06-5.63); RED CELL DISTRIBUTION WIDTH 15.8 % (12.1-16.2); WHITE BLOOD COUNT (AUTO) 9.7 K/uL (3.6-10.2)
[2023-03-14 07:01] LABS: DIFFERENTIAL COMMENT 1
[2023-03-14 07:07] LABS: CALCIUM 8.1 mg/dL (8.5-10.1); CREATININE 2.7 mg/dL (0.6-1.3); MAGNESIUM 2.2 mg/dL (1.8-2.4); POTASSIUM 4.7 mmol/L (3.5-5.1)
[2023-03-14] MEDS: BACLOFEN 10 MG TABLET PO SCH (08:57)
[2023-03-14] MEDS: ASPIRIN 81 MG TAB.CHEW PO SCH (08:57)
[2023-03-14] MEDS: FINASTERIDE 5 MG TABLET PO SCH (08:58)
[2023-03-14] MEDS: RANOLAZINE 500 MG TAB.ER.12H PO SCH (08:58)
[2023-03-14] MEDS: METOPROLOL SUCCINATE XL 50 MG TAB.SR.24H PO SCH (08:58)
[2023-03-14] MEDS: FUROSEMIDE 40 MG/4 ML VIAL IV SCH (09:02)
[2023-03-14] MEDS: DORZOLAMIDE 2% OPHT DROP 10 ML BOTTLE EACHEYE SCH (09:07)
[2023-03-14] MEDS: MUPIROCIN 2% OINT 22 GM TUBE NS SCH (09:08)
[2023-03-14] MEDS: CLOTRIMAZOLE 1% CREAM 30 GM TUBE TOP SCH (09:09)
[2023-03-14] MEDS: TICAGRELOR 90 MG TABLET PO SCH (09:16)
[2023-03-14] MEDS: ALBUTEROL SULFATE 2.5 MG/3 ML NEBU NEB PRN (09:26)
[2023-03-14] MEDS ORDERED: ERTA1VIA4 IJ (10:29)
[2023-03-14] MEDS ORDERED: BUME2TAB7 PO (10:36)
[2023-03-14] MEDS ORDERED: TICA90TA PO (10:37)
[2023-03-14] MEDS ORDERED: METO-357 PO (10:37)
[2023-03-14] MEDS: MEROPENEM 0.5 G in IV NORMAL SALINE 50 ML IV SCH (11:05)
[2023-03-14] MEDS: ONDANSETRON 4 MG/2 ML VIAL IV PRN (11:18)
[2023-03-14] MEDS: ACETAMINOPHEN 325 MG TABLET PO PRN (14:28)
== END 2023-03-14 15:00 | DRG 194 ==
LOC: ER 13:08 → TELE3 20:19
PROVIDERS: ADMIT Nurse Practitioner Acute Care; ATTEND Nurse Practitioner Acute Care
PROC: 05HF33Z Insertion of Infusion Device into Left Cephalic Vein, Percutaneous Approach (ICD-10-PCS; principal; 2023-03-07)
DX: I13.0 Hypertensive heart and chronic kidney disease with heart failure and stage 1 through stage 4 chronic kidney disease, or unspecified chronic kidney disease (principal); E43 Unspecified severe protein-calorie malnutrition; J96.10 Chronic respiratory failure, unspecified whether with hypoxia or hypercapnia; E11.22 Type 2 diabetes mellitus with diabetic chronic kidney disease; E11.42 Type 2 diabetes mellitus with diabetic polyneuropathy; L97.418 Non-pressure chronic ulcer of right heel and midfoot with other specified severity; N39.0 Urinary tract infection, site not specified; E88.09 Other disorders of plasma-protein metabolism, not elsewhere classified; B96.89 Other specified bacterial agents as the cause of diseases classified elsewhere; D64.9 Anemia, unspecified; I50.23 Acute on chronic systolic (congestive) heart failure; E11.51 Type 2 diabetes mellitus with diabetic peripheral angiopathy without gangrene; Z89.422 Acquired absence of other left toe(s); Z89.421 Acquired absence of other right toe(s); N18.4 Chronic kidney disease, stage 4 (severe); I25.5 Ischemic cardiomyopathy; Z79.82 Long term (current) use of aspirin; E11.621 Type 2 diabetes mellitus with foot ulcer; L97.528 Non-pressure chronic ulcer of other part of left foot with other specified severity; L97.518 Non-pressure chronic ulcer of other part of right foot with other specified severity; L97.821 Non-pressure chronic ulcer of other part of left lower leg limited to breakdown of skin; L97.811 Non-pressure chronic ulcer of other part of right lower leg limited to breakdown of skin; I70.248 Atherosclerosis of native arteries of left leg with ulceration of other part of lower leg; I70.238 Atherosclerosis of native arteries of right leg with ulceration of other part of lower leg; E66.9 Obesity, unspecified; Z71.3 Dietary counseling and surveillance; Z86.73 Personal history of transient ischemic attack (TIA), and cerebral infarction without residual deficits; E78.5 Hyperlipidemia, unspecified; Z16.24 Resistance to multiple antibiotics; Z68.33 Body mass index [BMI] 33.0-33.9, adult; E11.622 Type 2 diabetes mellitus with other skin ulcer; E11.65 Type 2 diabetes mellitus with hyperglycemia; I25.10 Atherosclerotic heart disease of native coronary artery without angina pectoris; I25.2 Old myocardial infarction; Z95.5 Presence of coronary angioplasty implant and graft; Z79.84 Long term (current) use of oral hypoglycemic drugs; Z79.899 Other long term (current) drug therapy; Z79.02 Long term (current) use of antithrombotics/antiplatelets; Z87.11 Personal history of peptic ulcer disease; M89.8X9 Other specified disorders of bone, unspecified site; N40.0 Benign prostatic hyperplasia without lower urinary tract symptoms; E11.43 Type 2 diabetes mellitus with diabetic autonomic (poly)neuropathy; K31.84 Gastroparesis; E87.5 Hyperkalemia; G40.909 Epilepsy, unspecified, not intractable, without status epilepticus; H40.10X0 Unspecified open-angle glaucoma, stage unspecified; I49.9 Cardiac arrhythmia, unspecified; Z88.8 Allergy status to other drugs, medicaments and biological substances; Z91.012 Allergy to eggs; Z91.011 Allergy to milk products; N50.89 Other specified disorders of the male genital organs; I69.30 Unspecified sequelae of cerebral infarction; Z79.4 Long term (current) use of insulin; K42.9 Umbilical hernia without obstruction or gangrene; Z68.30 Body mass index [BMI] 30.0-30.9, adult
CPT/HCPCS: 36415; 71045; 76770; 83605; 83735; 84100; 84300; 84484; 85025; 85730; 87040; 93005; 94640; 94664; 94760; A6209; C9113; G0378; J0696; J1170; J1644; J1815; J1940; J2185; J2405; Q0162

== ENCOUNTER 2023-04-02 12:48 | Inpatient (IN) | payer MEDICAID ==
[~2023-04-02] VITALS: Ht 167.6 cm; Wt 81.6 kg
[~2023-04-02 12:48] MED LIST changes: -AMOX-430 PO; -BUME1TAB8 PO; +BUME2TAB7 PO; +ERTA1VIA4 IJ; -GLIM2TAB PO; +INSU3INS6 SQ; +METO-357 PO; -METO25TA6 PO; -VIT1TABL46 PO; -glargine insulin SUBCUT
[2023-04-02] MEDS ORDERED: MIDO5TAB5 PO (13:32)
[2023-04-02] MEDS ORDERED: LACT414L5 PO (13:32)
[2023-04-02] MEDS ORDERED: ARGI1POW13 PO (13:32)
[2023-04-02] MEDS ORDERED: TAMS-3 PO (13:32)
[2023-04-02 13:43] LABS: BASOPHILS % (AUTO) 0.7 % (0.0-2.0); EOSINOPHILS # (AUTO) 0.2 K/uL (0.0-0.7); EOSINOPHILS % (AUTO) 3.9 % (0.0-7.0); HEMATOCRIT 30.7 % (36.7-47.1); LYMPHOCYTES # (AUTO) 0.3 K/uL (0.8-4.8); LYMPHOCYTES % (AUTO) 5.2 % (20.5-51.5); MEAN CORPUSCULAR HEMOGLOBIN 29.3 uug (23.8-33.4); MEAN CORPUSCULAR HGB CONC 33 g/dL (32.5-36.3); MEAN CORPUSCULAR VOLUME 90.1 fL (73.0-96.2); MONOCYTES # (AUTO) 0.4 K/uL (0.1-1.30); MONOCYTES % (AUTO) 6.7 % (0.0-11.0); NEUTROPHILS # (AUTO) 5.1 K/uL (1.8-8.9); NEUTROPHILS % (AUTO) 83.5 % (38.5-71.5); PLATELET COUNT (AUTO) 222 K/uL (152-348); RED CELL DISTRIBUTION WIDTH 16.6 % (12.1-16.2); WHITE BLOOD COUNT (AUTO) 6.1 K/uL (3.6-10.2)
[2023-04-02 13:57] LABS: DIFFERENTIAL COMMENT 1
[2023-04-02 14:32] LABS: CARBON DIOXIDE 24 mmol/L (21-32); CHLORIDE 106 mmol/L (98-107); CREATININE 2.6 mg/dL (0.6-1.3); GLUCOSE 134 mg/dL (74-106); POTASSIUM 3.6 mmol/L (3.5-5.1); SODIUM SERUM 140 mmol/L (136-145); UREA NITROGEN, BLOOD 50 mg/dL (7-18)
[2023-04-02 14:49] LABS: ALANINE AMINOTRANSFERASE 47 U/L (16-63); ALBUMIN 2.5 g/dL (3.4-5.0); ALKALINE PHOSPHATASE 161 U/L (50-136); ASPARTATE AMINOTRANSFERASE 18 U/L (15-37); BILIRUBIN,DIRECT 0.7 mg/dL (0.0-0.2); BILIRUBIN,TOTAL 1.2 mg/dL (0.2-1.0); TOTAL PROTEIN, SERUM 6.7 g/dL (6.4-8.2)
[2023-04-02] MEDS ORDERED: FUROSEMIDE 40 MG/4 ML VIAL IV ONE (15:15)
[2023-04-02] MEDS ORDERED: FUROSEMIDE 40 MG/4 ML VIAL ONE (15:19)
[2023-04-02 15:34] LABS: *BILIRUBIN,URIN NEGATIVE (NEGATIVE); *BLOOD, URINE NEGATIVE (NEGATIVE); *CLARITY,URINE CLEAR (CLEAR); *COLOR,URINE YELLOW (YELLOW); *KETONES,URINE NEGATIVE (NEGATIVE); *PROTEIN,URINE 1+ (NEGATIVE); LEUKOCYTE ESTERASE ,URINE TRACE (NEGATIVE); NITRITE, URINE NEGATIVE (NEGATIVE); UGLUCOSE NEGATIVE (NEGATIVE)
[2023-04-02 16:34] LABS: BACTERIA,URINE FEW /HPF (NONE SEEN); SQUAMOUS EPITHELIAL CELL,UR FEW /HPF (NONE SEEN); WBC,URINE 0-3 /HPF (0-3)
[2023-04-02 18:14] VITALS: BP 116/73; TEMP 97.6; O2SAT 100
[2023-04-02] MEDS ORDERED: ALBUTEROL SULFATE 2.5 MG/3 ML NEBU IH PRN (19:45)
[2023-04-02] MEDS ORDERED: MINERAL OIL FLEET ENEMA 133 ML BOTTLE RC PRN (19:45)
[2023-04-02] MEDS ORDERED: BISACODYL 10 MG SUPP.RECT RC PRN (19:45)
[2023-04-02 20:00] VITALS: BP 113/68; TEMP 97.7; O2SAT 100
[2023-04-02] MEDS: TAMSULOSIN HCL 0.4 MG CAP.SR.24H PO SCH (20:58)
[2023-04-02] MEDS: DOCUSATE SODIUM 100 MG CAPSULE PO SCH (20:58)
[2023-04-02] MEDS ORDERED: MAG HYDROX/AL HYDROX/SIMETH 30 ML LIQUID UDC PO PRN (21:00)
[2023-04-02] MEDS: MELATONIN 3 MG TABLET PO SCH (21:36)
[2023-04-02] MEDS: ACETAMINOPHEN 325 MG TABLET PO PRN (23:51)
[2023-04-03] VITALS: BP 115/65; TEMP 97.3; O2SAT 96
[2023-04-03 04:00] VITALS: BP 121/69; TEMP 98; O2SAT 100
[2023-04-03] MEDS ORDERED: PANTOPRAZOLE SODIUM 40 MG TABLET.DR PO SCH (07:00)
[2023-04-03] MEDS ORDERED: DOCU-141 PO (07:39)
[2023-04-03] MEDS: RANOLAZINE 500 MG TAB.ER.12H PO SCH ×2 (08:45→16:22)
[2023-04-03] MEDS: FINASTERIDE 5 MG TABLET PO SCH (08:46)
[2023-04-03] MEDS: ASPIRIN EC 81 MG TABLET.DR PO SCH (08:46)
[2023-04-03] MEDS: DOCUSATE SODIUM 100 MG CAPSULE PO SCH ×2 (08:46→20:24)
[2023-04-03] MEDS: METOPROLOL SUCCINATE XL 50 MG TAB.SR.24H PO SCH (08:47)
[2023-04-03] MEDS: BACLOFEN 10 MG TABLET PO SCH ×2 (08:47→16:22)
[2023-04-03] MEDS: FUROSEMIDE 40 MG/4 ML VIAL IV SCH ×2 (08:47→20:26)
[2023-04-03] MEDS: HYDROCODONE/APAP 7.5-325MG TABLET PO PRN ×2 (08:48→17:50)
[2023-04-03] MEDS: PROTEIN SUPPLEMENT (PROSTAT) 30 ML LIQUID PO SCH (08:54)
[2023-04-03] MEDS: DORZOLAMIDE 2% OPHT DROP 10 ML BOTTLE EACHEYE SCH ×2 (08:54→16:24)
[2023-04-03] MEDS ORDERED: COMPLEAT MODIFIED FORMULA 1000 ML LIQUID PO SCH (09:00)
[2023-04-03] MEDS: TICAGRELOR 90 MG TABLET PO SCH ×2 (09:05→16:25)
[2023-04-03 11:17] VITALS: BP 111/61; TEMP 98.6; O2SAT 100
[2023-04-03] MEDS: VITAMINS A AND D OINT 42 GM TUBE TP SCH (14:16)
[2023-04-03 15:32] VITALS: BP 117/69; TEMP 98.6; O2SAT 100
[2023-04-03] MEDS: REMEDY ESSENTIAL ZINC PASTE 113 GM TP SCH (16:23)
[2023-04-03] MEDS: CLOTRIMAZOLE 1% CREAM 30 GM TUBE TOP SCH (16:23)
[2023-04-03] MEDS: PANTOPRAZOLE SODIUM 40 MG TABLET.DR PO SCH (16:30)
[2023-04-03 20:00] VITALS: BP 109/63; TEMP 98; O2SAT 100
[2023-04-03] MEDS: TAMSULOSIN HCL 0.4 MG CAP.SR.24H PO SCH (20:26)
[2023-04-03] MEDS: MELATONIN 3 MG TABLET PO SCH (20:26)
[2023-04-04] VITALS (8 sets, daily range): BP systolic 90–133; BP diastolic 50–79; TEMP 97.2–97.9; O2SAT 94–99
[2023-04-04] MEDS: PANTOPRAZOLE SODIUM 40 MG TABLET.DR PO SCH ×2 (07:00→16:39)
[2023-04-04] MEDS: PROTEIN SUPPLEMENT (PROSTAT) 30 ML LIQUID PO SCH (08:00)
[2023-04-04] MEDS: FUROSEMIDE 40 MG/4 ML VIAL IV SCH ×2 (08:29→20:55)
[2023-04-04] MEDS: FINASTERIDE 5 MG TABLET PO SCH (08:29)
[2023-04-04] MEDS: DOCUSATE SODIUM 100 MG CAPSULE PO SCH ×2 (08:29→20:48)
[2023-04-04] MEDS: BACLOFEN 10 MG TABLET PO SCH ×2 (08:29→16:39)
[2023-04-04] MEDS: ASPIRIN EC 81 MG TABLET.DR PO SCH (08:29)
[2023-04-04] MEDS: RANOLAZINE 500 MG TAB.ER.12H PO SCH ×2 (08:30→16:40)
[2023-04-04] MEDS: CLOTRIMAZOLE 1% CREAM 30 GM TUBE TOP SCH ×2 (08:32→16:41)
[2023-04-04] MEDS: METOPROLOL SUCCINATE XL 50 MG TAB.SR.24H PO SCH (08:32)
[2023-04-04] MEDS: VITAMINS A AND D OINT 42 GM TUBE TP SCH (08:32)
[2023-04-04] MEDS: REMEDY ESSENTIAL ZINC PASTE 113 GM TP SCH ×2 (08:32→16:41)
[2023-04-04] MEDS: DORZOLAMIDE 2% OPHT DROP 10 ML BOTTLE EACHEYE SCH ×2 (08:33→16:39)
[2023-04-04] MEDS: TICAGRELOR 90 MG TABLET PO SCH ×2 (08:35→16:39)
[2023-04-04] MEDS: HYDROCODONE/APAP 7.5-325MG TABLET PO PRN (08:43)
[2023-04-04] MEDS ORDERED: HEPARIN SODIUM,PORCINE 1,000 UNITS/ML VIAL ONE (16:24)
[2023-04-04] MEDS ORDERED: LIDOCAINE-MPF 2% 5 ML VIAL ONE (16:32)
[2023-04-04] MEDS ORDERED: CEFAZOLIN 1 G VIAL ONE (16:32)
[2023-04-04] MEDS ORDERED: PROPOFOL 200 MG/20 ML BOTTLE ONE (16:32)
[2023-04-04] MEDS ORDERED: LIDOCAINE HCL 1% 20 ML VIAL ONE (16:46)
[2023-04-04] MEDS: CEFTRIAXONE 1 G in IV DEXTROSE 5% 50 ML IV SCH (20:12)
[2023-04-04] MEDS: TAMSULOSIN HCL 0.4 MG CAP.SR.24H PO SCH (20:48)
[2023-04-04] MEDS: MELATONIN 3 MG TABLET PO SCH ×2 (20:49→20:55)
[2023-04-04] MEDS: ACETAMINOPHEN 325 MG TABLET PO PRN (23:05)
[2023-04-05] VITALS (7 sets, daily range): BP systolic 106–120; BP diastolic 54–80; TEMP 97.4–98.4; O2SAT 97–100
[2023-04-05] MEDS: HYDROCODONE/APAP 7.5-325MG TABLET PO PRN ×3 (03:33→22:39)
[2023-04-05] MEDS: PANTOPRAZOLE SODIUM 40 MG TABLET.DR PO SCH ×2 (06:11→17:28)
[2023-04-05 07:27] LABS: CALCIUM 7.9 mg/dL (8.5-10.1); CREATININE 2.4 mg/dL (0.6-1.3); MAGNESIUM 1.8 mg/dL (1.8-2.4); PHOSPHOROUS 3.6 mg/dL (2.5-4.9); POTASSIUM 3.5 mmol/L (3.5-5.1)
[2023-04-05 07:36] LABS: BASOPHILS % (AUTO) 0.7 % (0.0-2.0); DIFFERENTIAL COMMENT 0; EOSINOPHILS # (AUTO) 0.3 K/uL (0.0-0.7); EOSINOPHILS % (AUTO) 5.2 % (0.0-7.0); HEMATOCRIT 29.3 % (36.7-47.1); HEMOGLOBIN 9.6 g/dL (12.5-16.3); LYMPHOCYTES # (AUTO) 0.3 K/uL (0.8-4.8); LYMPHOCYTES % (AUTO) 4.3 % (20.5-51.5); MEAN CORPUSCULAR HEMOGLOBIN 29.4 uug (23.8-33.4); MEAN CORPUSCULAR HGB CONC 33 g/dL (32.5-36.3); MONOCYTES # (AUTO) 0.5 K/uL (0.1-1.30); MONOCYTES % (AUTO) 9.1 % (0.0-11.0); NEUTROPHILS # (AUTO) 4.8 K/uL (1.8-8.9); NEUTROPHILS % (AUTO) 80.7 % (38.5-71.5); PLATELET COUNT (AUTO) 195 K/uL (152-348); RED BLOOD CELL COUNT(AUTO) 3.26 MIL/uL (4.06-5.63); RED CELL DISTRIBUTION WIDTH 17.1 % (12.1-16.2)
[2023-04-05] MEDS: FUROSEMIDE 40 MG/4 ML VIAL IV SCH ×2 (09:22→20:39)
[2023-04-05] MEDS: DORZOLAMIDE 2% OPHT DROP 10 ML BOTTLE EACHEYE SCH ×2 (09:22→17:27)
[2023-04-05] MEDS: PROTEIN SUPPLEMENT (PROSTAT) 30 ML LIQUID PO SCH (09:22)
[2023-04-05] MEDS: DOCUSATE SODIUM 100 MG CAPSULE PO SCH ×2 (09:23→20:36)
[2023-04-05] MEDS: TICAGRELOR 90 MG TABLET PO SCH ×2 (09:23→17:28)
[2023-04-05] MEDS: RANOLAZINE 500 MG TAB.ER.12H PO SCH ×2 (09:24→17:28)
[2023-04-05] MEDS: FINASTERIDE 5 MG TABLET PO SCH (09:24)
[2023-04-05] MEDS: BACLOFEN 10 MG TABLET PO SCH ×2 (09:24→17:28)
[2023-04-05] MEDS: ASPIRIN EC 81 MG TABLET.DR PO SCH (09:24)
[2023-04-05] MEDS: METOPROLOL SUCCINATE XL 50 MG TAB.SR.24H PO SCH (09:25)
[2023-04-05] MEDS: CLOTRIMAZOLE 1% CREAM 30 GM TUBE TOP SCH ×2 (09:26→17:33)
[2023-04-05] MEDS: SODIUM HYPOCHLORITE 0.125% (QUARTER STRENGTH) 473 ML BOTTLE TP SCH (09:26)
[2023-04-05] MEDS: BACITRACIN ZINC OINT 15 GM TUBE TOP SCH (09:26)
[2023-04-05] MEDS: REMEDY ESSENTIAL ZINC PASTE 113 GM TP SCH ×2 (09:27→17:33)
[2023-04-05] MEDS: VITAMINS A AND D OINT 42 GM TUBE TP SCH (09:28)
[2023-04-05] MEDS: CEFTRIAXONE 1 G in IV DEXTROSE 5% 50 ML IV SCH (20:36)
[2023-04-05] MEDS: TAMSULOSIN HCL 0.4 MG CAP.SR.24H PO SCH (20:37)
[2023-04-05] MEDS: MELATONIN 3 MG TABLET PO SCH (20:38)
[2023-04-06] VITALS (8 sets, daily range): BP systolic 100–133; BP diastolic 59–72; TEMP 97.6–98.5; O2SAT 96–100
[2023-04-06] MEDS: PANTOPRAZOLE SODIUM 40 MG TABLET.DR PO SCH ×2 (06:38→16:17)
[2023-04-06] MEDS: PROTEIN SUPPLEMENT (PROSTAT) 30 ML LIQUID PO SCH (08:00)
[2023-04-06] MEDS: DOCUSATE SODIUM 100 MG CAPSULE PO SCH ×2 (08:48→20:55)
[2023-04-06] MEDS: TICAGRELOR 90 MG TABLET PO SCH ×2 (08:50→16:17)
[2023-04-06] MEDS: BACLOFEN 10 MG TABLET PO SCH ×2 (08:50→16:18)
[2023-04-06] MEDS: ASPIRIN EC 81 MG TABLET.DR PO SCH (08:50)
[2023-04-06] MEDS: FINASTERIDE 5 MG TABLET PO SCH (08:51)
[2023-04-06] MEDS: METOPROLOL SUCCINATE XL 50 MG TAB.SR.24H PO SCH (08:51)
[2023-04-06] MEDS: SODIUM HYPOCHLORITE 0.125% (QUARTER STRENGTH) 473 ML BOTTLE TP SCH (08:51)
[2023-04-06] MEDS: RANOLAZINE 500 MG TAB.ER.12H PO SCH ×2 (08:51→16:16)
[2023-04-06] MEDS: DORZOLAMIDE 2% OPHT DROP 10 ML BOTTLE EACHEYE SCH ×2 (08:52→16:17)
[2023-04-06] MEDS: BACITRACIN ZINC OINT 15 GM TUBE TOP SCH (08:53)
[2023-04-06] MEDS: REMEDY ESSENTIAL ZINC PASTE 113 GM TP SCH ×2 (08:53→16:19)
[2023-04-06] MEDS: CLOTRIMAZOLE 1% CREAM 30 GM TUBE TOP SCH ×2 (08:53→16:18)
[2023-04-06] MEDS: VITAMINS A AND D OINT 42 GM TUBE TP SCH (08:54)
[2023-04-06] MEDS ORDERED: LIDOCAINE HCL 1% 20 ML VIAL ONE (09:42)
[2023-04-06] MEDS: FUROSEMIDE 40 MG/4 ML VIAL IV SCH ×2 (09:50→22:50)
[2023-04-06] MEDS ORDERED: VANCOMYCIN 1000 MG VIAL ONE (10:30)
[2023-04-06] MEDS ORDERED: BACITRACIN/POLYMYXIN B OINT 15 GM TUBE ONE (10:31)
[2023-04-06] MEDS ORDERED: MEROPENEM 500 MG in IV NORMAL SALINE 50 ML IV SCH (11:46)
[2023-04-06] MEDS: MELATONIN 3 MG TABLET PO SCH (20:55)
[2023-04-06] MEDS: TAMSULOSIN HCL 0.4 MG CAP.SR.24H PO SCH (20:56)
[2023-04-07] VITALS (12 sets, daily range): BP systolic 96–117; BP diastolic 55–73; TEMP 97.9–98.5; O2SAT 99–100
[2023-04-07] MEDS: HYDROCODONE/APAP 7.5-325MG TABLET PO PRN ×2 (05:37→13:18)
[2023-04-07] MEDS: PANTOPRAZOLE SODIUM 40 MG TABLET.DR PO SCH ×2 (06:38→16:25)
[2023-04-07 06:50] LABS: CALCIUM 7.3 mg/dL (8.5-10.1); CREATININE 1.8 mg/dL (0.6-1.3); POTASSIUM 3.1 mmol/L (3.5-5.1)
[2023-04-07 06:56] LABS: BASOPHILS % (AUTO) 0.5 % (0.0-2.0); DIFFERENTIAL COMMENT 0; EOSINOPHILS # (AUTO) 0.3 K/uL (0.0-0.7); EOSINOPHILS % (AUTO) 5.3 % (0.0-7.0); HEMATOCRIT 22.3 % (36.7-47.1); HEMOGLOBIN 7.3 g/dL (12.5-16.3); LYMPHOCYTES # (AUTO) 0.2 K/uL (0.8-4.8); LYMPHOCYTES % (AUTO) 4.8 % (20.5-51.5); MEAN CORPUSCULAR HEMOGLOBIN 29.5 uug (23.8-33.4); MEAN CORPUSCULAR HGB CONC 33 g/dL (32.5-36.3); MEAN CORPUSCULAR VOLUME 89.8 fL (73.0-96.2); MONOCYTES # (AUTO) 0.5 K/uL (0.1-1.30); MONOCYTES % (AUTO) 9.4 % (0.0-11.0); NEUTROPHILS # (AUTO) 4.2 K/uL (1.8-8.9); PLATELET COUNT (AUTO) 183 K/uL (152-348); RED BLOOD CELL COUNT(AUTO) 2.49 MIL/uL (4.06-5.63); RED CELL DISTRIBUTION WIDTH 17.2 % (12.1-16.2); WHITE BLOOD COUNT (AUTO) 5.2 K/uL (3.6-10.2)
[2023-04-07 08:07] LABS: HEPATITIS B CORE AB, IgM Negative (Negative); HEPATITIS B CORE AB, TOTAL Negative (Negative); HEPATITIS B SURFACE AB, QUAL Non Reactive (.); HEPATITIS B SURFACE AG Negative (Negative); HEPATITIS C VIRUS ANTIBODY Non Reactive (Non Reactive)
[2023-04-07] MEDS: PROTEIN SUPPLEMENT (PROSTAT) 30 ML LIQUID PO SCH (08:54)
[2023-04-07] MEDS: DORZOLAMIDE 2% OPHT DROP 10 ML BOTTLE EACHEYE SCH ×2 (08:55→16:27)
[2023-04-07] MEDS: BACLOFEN 10 MG TABLET PO SCH ×2 (08:55→16:27)
[2023-04-07] MEDS: RANOLAZINE 500 MG TAB.ER.12H PO SCH ×2 (08:55→16:26)
[2023-04-07] MEDS: METOPROLOL SUCCINATE XL 50 MG TAB.SR.24H PO SCH (08:56)
[2023-04-07] MEDS: BACITRACIN ZINC OINT 15 GM TUBE TOP SCH (08:57)
[2023-04-07] MEDS: SODIUM HYPOCHLORITE 0.125% (QUARTER STRENGTH) 473 ML BOTTLE TP SCH (08:58)
[2023-04-07] MEDS: CLOTRIMAZOLE 1% CREAM 30 GM TUBE TOP SCH ×2 (08:58→16:27)
[2023-04-07] MEDS: REMEDY ESSENTIAL ZINC PASTE 113 GM TP SCH ×2 (08:59→16:28)
[2023-04-07] MEDS: ASPIRIN EC 81 MG TABLET.DR PO SCH (09:18)
[2023-04-07] MEDS: FINASTERIDE 5 MG TABLET PO SCH (09:18)
[2023-04-07] MEDS: FUROSEMIDE 40 MG/4 ML VIAL IV SCH ×2 (09:18→20:39)
[2023-04-07] MEDS: TICAGRELOR 90 MG TABLET PO SCH ×2 (09:19→16:27)
[2023-04-07] MEDS: DOCUSATE SODIUM 100 MG CAPSULE PO SCH ×2 (09:19→20:38)
[2023-04-07] MEDS: VITAMINS A AND D OINT 42 GM TUBE TP SCH (09:20)
[2023-04-07] MEDS ORDERED: CEFAZOLIN 1 G VIAL ONE (10:00)
[2023-04-07] MEDS ORDERED: PROPOFOL 200 MG/20 ML BOTTLE ONE (10:00)
[2023-04-07] MEDS ORDERED: POTASSIUM CHLORIDE 10 MEQ TAB.PRT.SR PO ONE (10:30)
[2023-04-07] MEDS: MEROPENEM 500 MG in IV NORMAL SALINE 50 ML IV SCH (20:38)
[2023-04-07] MEDS: TAMSULOSIN HCL 0.4 MG CAP.SR.24H PO SCH (20:38)
[2023-04-07] MEDS: MELATONIN 3 MG TABLET PO SCH (20:39)
[2023-04-08] VITALS (7 sets, daily range): BP systolic 106–116; BP diastolic 62–75; TEMP 97.6–99.2; O2SAT 99–100
[2023-04-08] MEDS: ACETAMINOPHEN 325 MG TABLET PO PRN (03:32)
[2023-04-08] MEDS: PANTOPRAZOLE SODIUM 40 MG TABLET.DR PO SCH ×2 (06:09→16:46)
[2023-04-08 06:53] LABS: BASOPHILS % (AUTO) 0.4 % (0.0-2.0); EOSINOPHILS # (AUTO) 0.2 K/uL (0.0-0.7); EOSINOPHILS % (AUTO) 3.1 % (0.0-7.0); HEMATOCRIT 22.3 % (36.7-47.1); LYMPHOCYTES # (AUTO) 0.3 K/uL (0.8-4.8); LYMPHOCYTES % (AUTO) 5.6 % (20.5-51.5); MEAN CORPUSCULAR HEMOGLOBIN 28.4 uug (23.8-33.4); MEAN CORPUSCULAR HGB CONC 33 g/dL (32.5-36.3); MEAN CORPUSCULAR VOLUME 86.3 fL (73.0-96.2); MONOCYTES # (AUTO) 0.6 K/uL (0.1-1.30); MONOCYTES % (AUTO) 10.1 % (0.0-11.0); NEUTROPHILS # (AUTO) 4.9 K/uL (1.8-8.9); NEUTROPHILS % (AUTO) 80.8 % (38.5-71.5); PLATELET COUNT (AUTO) 161 K/uL (152-348); RED BLOOD CELL COUNT(AUTO) 2.58 MIL/uL (4.06-5.63); RED CELL DISTRIBUTION WIDTH 22.1 % (12.1-16.2)
[2023-04-08 07:06] LABS: CALCIUM 7.5 mg/dL (8.5-10.1); CREATININE 1.7 mg/dL (0.6-1.3); MAGNESIUM 1.7 mg/dL (1.8-2.4); PHOSPHOROUS 2.9 mg/dL (2.5-4.9); POTASSIUM 3.2 mmol/L (3.5-5.1)
[2023-04-08 07:07] LABS: DIFFERENTIAL COMMENT 1; HEMOGLOBIN 7.3 g/dL (12.5-16.3)
[2023-04-08] MEDS: BACITRACIN ZINC OINT 15 GM TUBE TOP SCH (09:00)
[2023-04-08] MEDS: SODIUM HYPOCHLORITE 0.125% (QUARTER STRENGTH) 473 ML BOTTLE TP SCH (09:00)
[2023-04-08] MEDS: REMEDY ESSENTIAL ZINC PASTE 113 GM TP SCH ×2 (09:00→16:47)
[2023-04-08] MEDS: FUROSEMIDE 40 MG/4 ML VIAL IV SCH ×2 (10:05→21:16)
[2023-04-08] MEDS: DOCUSATE SODIUM 100 MG CAPSULE PO SCH ×2 (10:06→21:16)
[2023-04-08] MEDS: BACLOFEN 10 MG TABLET PO SCH ×2 (10:06→16:46)
[2023-04-08] MEDS: RANOLAZINE 500 MG TAB.ER.12H PO SCH ×2 (10:06→16:46)
[2023-04-08] MEDS: METOPROLOL SUCCINATE XL 50 MG TAB.SR.24H PO SCH (10:06)
[2023-04-08] MEDS: ASPIRIN EC 81 MG TABLET.DR PO SCH (10:06)
[2023-04-08] MEDS: FINASTERIDE 5 MG TABLET PO SCH (10:06)
[2023-04-08] MEDS: PROTEIN SUPPLEMENT (PROSTAT) 30 ML LIQUID PO SCH (10:07)
[2023-04-08] MEDS: DORZOLAMIDE 2% OPHT DROP 10 ML BOTTLE EACHEYE SCH ×2 (10:08→16:46)
[2023-04-08] MEDS: CLOTRIMAZOLE 1% CREAM 30 GM TUBE TOP SCH ×2 (10:08→16:47)
[2023-04-08] MEDS: VITAMINS A AND D OINT 42 GM TUBE TP SCH (10:10)
[2023-04-08] MEDS: ONDANSETRON 4 MG/2 ML VIAL IV PRN (10:10)
[2023-04-08] MEDS ORDERED: MAGNESIUM OXIDE 400 MG TABLET PO ONE (11:45)
[2023-04-08] MEDS ORDERED: VANCOMYCIN IV 1,250 MG in IV DEXTROSE 5% 250 ML IV ONE (20:00)
[2023-04-08] MEDS: MEROPENEM 500 MG in IV NORMAL SALINE 50 ML IV SCH (20:03)
[2023-04-08] MEDS: MELATONIN 3 MG TABLET PO SCH (21:16)
[2023-04-08] MEDS: TAMSULOSIN HCL 0.4 MG CAP.SR.24H PO SCH (21:16)
[2023-04-09] MEDS ORDERED: PROPOFOL 200 MG/20 ML BOTTLE ONE
[2023-04-09] MEDS ORDERED: ETOMIDATE 20 MG/10 ML VIAL ONE
[2023-04-09 00:04] VITALS: BP 103/66; TEMP 98.8; O2SAT 100
[2023-04-09] MEDS: ACETAMINOPHEN 325 MG TABLET PO PRN (02:49)
[2023-04-09 04:23] VITALS: BP 109/66; TEMP 98.1; O2SAT 100
[2023-04-09] MEDS: PANTOPRAZOLE SODIUM 40 MG TABLET.DR PO SCH ×2 (06:49→17:20)
[2023-04-09 09:06] LABS: BASOPHILS % (AUTO) 0.3 % (0.0-2.0); EOSINOPHILS # (AUTO) 0.2 K/uL (0.0-0.7); HEMATOCRIT 22.3 % (36.7-47.1); LYMPHOCYTES # (AUTO) 0.4 K/uL (0.8-4.8); LYMPHOCYTES % (AUTO) 6.3 % (20.5-51.5); MEAN CORPUSCULAR HEMOGLOBIN 28.6 uug (23.8-33.4); MEAN CORPUSCULAR HGB CONC 33 g/dL (32.5-36.3); MEAN CORPUSCULAR VOLUME 87.5 fL (73.0-96.2); MONOCYTES # (AUTO) 0.5 K/uL (0.1-1.30); MONOCYTES % (AUTO) 9.4 % (0.0-11.0); NEUTROPHILS # (AUTO) 4.7 K/uL (1.8-8.9); PLATELET COUNT (AUTO) 161 K/uL (152-348); RED BLOOD CELL COUNT(AUTO) 2.55 MIL/uL (4.06-5.63); RED CELL DISTRIBUTION WIDTH 22.5 % (12.1-16.2); WHITE BLOOD COUNT (AUTO) 5.8 K/uL (3.6-10.2)
[2023-04-09 09:19] LABS: POTASSIUM 3.5 mmol/L (3.5-5.1)
[2023-04-09] MEDS: BACLOFEN 10 MG TABLET PO SCH ×2 (09:24→17:20)
[2023-04-09] MEDS: ASPIRIN EC 81 MG TABLET.DR PO SCH (09:24)
[2023-04-09] MEDS: FINASTERIDE 5 MG TABLET PO SCH (09:24)
[2023-04-09] MEDS: PROTEIN SUPPLEMENT (PROSTAT) 30 ML LIQUID PO SCH (09:24)
[2023-04-09] MEDS: DOCUSATE SODIUM 100 MG CAPSULE PO SCH ×2 (09:24→20:56)
[2023-04-09] MEDS: METOPROLOL SUCCINATE XL 50 MG TAB.SR.24H PO SCH (09:24)
[2023-04-09] MEDS: RANOLAZINE 500 MG TAB.ER.12H PO SCH ×2 (09:24→17:20)
[2023-04-09] MEDS: DORZOLAMIDE 2% OPHT DROP 10 ML BOTTLE EACHEYE SCH ×2 (09:25→17:21)
[2023-04-09] MEDS: REMEDY ESSENTIAL ZINC PASTE 113 GM TP SCH ×2 (09:26→17:20)
[2023-04-09] MEDS: CLOTRIMAZOLE 1% CREAM 30 GM TUBE TOP SCH ×2 (09:27→17:21)
[2023-04-09] MEDS: BACITRACIN ZINC OINT 15 GM TUBE TOP SCH (09:28)
[2023-04-09] MEDS: VITAMINS A AND D OINT 42 GM TUBE TP SCH (09:28)
[2023-04-09 09:37] LABS: DIFFERENTIAL COMMENT 1; HEMOGLOBIN 7.3 g/dL (12.5-16.3)
[2023-04-09] MEDS: ONDANSETRON 4 MG/2 ML VIAL IV PRN ×3 (10:06→20:03)
[2023-04-09] MEDS: HYDROCODONE/APAP 7.5-325MG TABLET PO PRN (10:08)
[2023-04-09] MEDS: SODIUM HYPOCHLORITE 0.125% (QUARTER STRENGTH) 473 ML BOTTLE TP SCH (10:10)
[2023-04-09 11:03] VITALS: BP 93/51; TEMP 98.4; O2SAT 98
[2023-04-09 14:41] VITALS: O2SAT 98
[2023-04-09 15:09] VITALS: BP 106/61; TEMP 98.4; O2SAT 96
[2023-04-09] MEDS ORDERED: VANCOMYCIN IV 750 MG in IV DEXTROSE 5% 250 ML IV ONE (16:00)
[2023-04-09 20:23] VITALS: BP 90/51; TEMP 97.5; O2SAT 99
[2023-04-09] MEDS: TAMSULOSIN HCL 0.4 MG CAP.SR.24H PO SCH (20:56)
[2023-04-09] MEDS: MELATONIN 3 MG TABLET PO SCH (20:57)
[2023-04-09] MEDS: MEROPENEM 500 MG in IV NORMAL SALINE 50 ML IV SCH (21:44)
[2023-04-09] MEDS ORDERED: PROPOFOL 100 ML ONE (23:33)
[2023-04-09] MEDS ORDERED: AMIODARONE HCL 150 MG/3 ML VIAL IV ONE (23:33)
[2023-04-09] MEDS ORDERED: FENTANYL CITRATE 100 MCG/2 ML AMPUL ONE (23:34)
[2023-04-10] VITALS (37 sets, daily range): BP systolic 63–140; BP diastolic 20–96; TEMP 98.4–100.9; O2SAT 85–100
[2023-04-10 00:05] LABS: BASOPHILS # (AUTO) 0.2 K/UL (0.0-0.2); EOSINOPHILS # (AUTO) 0.3 K/uL (0.0-0.7); EOSINOPHILS % (AUTO) 3.3 % (0.0-7.0); HEMATOCRIT 24.6 % (36.7-47.1); HEMOGLOBIN 7.8 g/dL (12.5-16.3); LYMPHOCYTES # (AUTO) 0.6 K/uL (0.8-4.8); LYMPHOCYTES % (AUTO) 8.3 % (20.5-51.5); MEAN CORPUSCULAR HEMOGLOBIN 28.5 uug (23.8-33.4); MEAN CORPUSCULAR HGB CONC 32 g/dL (32.5-36.3); MEAN CORPUSCULAR VOLUME 89.2 fL (73.0-96.2); MONOCYTES # (AUTO) 0.6 K/uL (0.1-1.30); MONOCYTES % (AUTO) 7.2 % (0.0-11.0); NEUTROPHILS # (AUTO) 6.1 K/uL (1.8-8.9); NEUTROPHILS % (AUTO) 79.2 % (38.5-71.5); PLATELET COUNT (AUTO) 183 K/uL (152-348); RED BLOOD CELL COUNT(AUTO) 2.75 MIL/uL (4.06-5.63); RED CELL DISTRIBUTION WIDTH 23.3 % (12.1-16.2); WHITE BLOOD COUNT (AUTO) 7.7 K/uL (3.6-10.2)
[2023-04-10 00:12] LABS: DIFFERENTIAL COMMENT 1
[2023-04-10 00:13] LABS: CALCIUM 8.8 mg/dL (8.5-10.1); CREATININE 2.1 mg/dL (0.6-1.3); POTASSIUM 3.2 mmol/L (3.5-5.1)
[2023-04-10 00:28] LABS: LACTIC ACID 6.1 mmol/L (0.4-2.0)
[2023-04-10 00:31] LABS: ALBUMIN 2.3 g/dL (3.4-5.0); BILIRUBIN,TOTAL 1.3 mg/dL (0.2-1.0); TOTAL PROTEIN, SERUM 6.3 g/dL (6.4-8.2)
[2023-04-10] MEDS ORDERED: NOREPINEPHRINE BITARTRATE 8 MG in IV NORMAL SALINE 242 ML IV PRN ×3 (01:00→20:45)
[2023-04-10 01:17] LABS: ABG BASE EXCESS 2.5 mmol/L (-2.0-2.0); ABG HCO3 25.3 mmol/L (22.0-26.0); ABG PCO2 31.5 mmHg (35.0-48.0); ABG PH 7.522 (7.340-7.440); ABG PO2 438.5 mmHg (75.0-100.0); ABG SITE RIGHT RADIAL; ABG TOTAL HEMOGLOBIN 7.8 G/dL (14.0-18.0); AaDO2 99.9 mmHg; COHb 0.2 % (0.0-3.9); MetHb 0.1 % (0.0-1.5); O2Hb 99.4 % (94.0-97.0); VT, ABG 500 mL
[2023-04-10] MEDS ORDERED: MAGNESIUM SULFATE/D5W 100 ML ONE (03:14)
[2023-04-10] MEDS ORDERED: MAGNESIUM SULFATE/D5W 100 ML IV SCH (03:15)
[2023-04-10] MEDS ORDERED: NOREPINEPHRINE BITARTRATE 4 MG/4 ML VIAL IV ONE ×2 (04:10→17:45)
[2023-04-10 06:47] LABS: BASOPHILS % (AUTO) 0.3 % (0.0-2.0); EOSINOPHILS % (AUTO) 0.6 % (0.0-7.0); LYMPHOCYTES # (AUTO) 0.4 K/uL (0.8-4.8); LYMPHOCYTES % (AUTO) 5.9 % (20.5-51.5); MEAN CORPUSCULAR HEMOGLOBIN 29.2 uug (23.8-33.4); MEAN CORPUSCULAR HGB CONC 33 g/dL (32.5-36.3); MEAN CORPUSCULAR VOLUME 88.7 fL (73.0-96.2); MONOCYTES # (AUTO) 0.7 K/uL (0.1-1.30); MONOCYTES % (AUTO) 10.3 % (0.0-11.0); NEUTROPHILS # (AUTO) 5.7 K/uL (1.8-8.9); NEUTROPHILS % (AUTO) 82.9 % (38.5-71.5); PLATELET COUNT (AUTO) 150 K/uL (152-348); RED CELL DISTRIBUTION WIDTH 22.4 % (12.1-16.2); WHITE BLOOD COUNT (AUTO) 6.8 K/uL (3.6-10.2)
[2023-04-10 06:59] LABS: CALCIUM 8.3 mg/dL (8.5-10.1); CREATININE 1.9 mg/dL (0.6-1.3); MAGNESIUM 1.9 mg/dL (1.8-2.4); POTASSIUM 3.6 mmol/L (3.5-5.1)
[2023-04-10] MEDS: PANTOPRAZOLE SODIUM 40 MG TABLET.DR PO SCH ×2 (07:00→17:59)
[2023-04-10 07:04] LABS: DIFFERENTIAL COMMENT 1; HEMOGLOBIN 6.6 g/dL (12.5-16.3); RED BLOOD CELL COUNT(AUTO) 2.26 MIL/uL (4.06-5.63)
[2023-04-10] MEDS ORDERED: PROPOFOL 100 ML ONE (07:38)
[2023-04-10] MEDS: PROTEIN SUPPLEMENT (PROSTAT) 30 ML LIQUID PO SCH (08:00)
[2023-04-10] MEDS: FINASTERIDE 5 MG TABLET PO SCH (09:00)
[2023-04-10] MEDS: DORZOLAMIDE 2% OPHT DROP 10 ML BOTTLE EACHEYE SCH ×2 (09:00→17:59)
[2023-04-10] MEDS: REMEDY ESSENTIAL ZINC PASTE 113 GM TP SCH ×2 (09:00→17:59)
[2023-04-10] MEDS: CLOTRIMAZOLE 1% CREAM 30 GM TUBE TOP SCH ×2 (09:00→17:59)
[2023-04-10] MEDS: DOCUSATE SODIUM 100 MG CAPSULE PO SCH ×2 (09:00→21:00)
[2023-04-10] MEDS: BACITRACIN ZINC OINT 15 GM TUBE TOP SCH (09:00)
[2023-04-10] MEDS: RANOLAZINE 500 MG TAB.ER.12H PO SCH ×2 (09:00→17:59)
[2023-04-10] MEDS: BACLOFEN 10 MG TABLET PO SCH ×2 (09:00→17:59)
[2023-04-10] MEDS: SODIUM HYPOCHLORITE 0.125% (QUARTER STRENGTH) 473 ML BOTTLE TP SCH (09:00)
[2023-04-10] MEDS: VITAMINS A AND D OINT 42 GM TUBE TP SCH (09:00)
[2023-04-10] MEDS ORDERED: METOPROLOL SUCCINATE XL 50 MG TAB.SR.24H PO SCH (09:00)
[2023-04-10] MEDS: ASPIRIN EC 81 MG TABLET.DR PO SCH (09:00)
[2023-04-10] MEDS: NEPRO (VANILLA) 237 ML CAN PO SCH (09:00)
[2023-04-10] MEDS ORDERED: VANCOMYCIN IV 500 MG in IV DEXTROSE 5% 100 ML IV PRN (09:45)
[2023-04-10] MEDS ORDERED: PROPOFOL 100 ML IV PRN (11:15)
[2023-04-10] MEDS: MIDAZOLAM HCL 50 MG in IV NORMAL SALINE 40 ML IV PRN ×2 (11:50→18:37)
[2023-04-10] MEDS ORDERED: NOREPINEPHRINE BITARTRATE 32 MG in IV NORMAL SALINE 218 ML IV PRN ×2 (18:30→20:45)
[2023-04-10] MEDS: MELATONIN 3 MG TABLET PO SCH (21:00)
[2023-04-10] MEDS: TAMSULOSIN HCL 0.4 MG CAP.SR.24H PO SCH (21:00)
[2023-04-10] MEDS: PHENYLEPHRINE IV 100 MG in IV NORMAL SALINE 240 ML IV PRN (21:09)
[2023-04-10] MEDS ORDERED: MEROPENEM 500MG/NS 50ML PB ***ER PYXIS ONLY IV ONE (22:04)
[2023-04-10] MEDS: MEROPENEM 500 MG in IV NORMAL SALINE 50 ML IV SCH (22:05)
[2023-04-11] VITALS (80 sets, daily range): BP systolic 58–148; BP diastolic 23–103; TEMP 97.6–99; O2SAT 90–100
[2023-04-11] MEDS ORDERED: DOPamine IV DRIP 400 MG/250ML 250 ML ONE (00:53)
[2023-04-11] MEDS ORDERED: DOPamine IV DRIP 400 MG/250ML 250 ML IV PRN (01:00)
[2023-04-11] MEDS: MIDAZOLAM HCL 50 MG in IV NORMAL SALINE 40 ML IV PRN ×2 (04:00→16:49)
[2023-04-11 05:31] LABS: HEMATOCRIT 35.3 % (36.7-47.1); HEMOGLOBIN 11.4 g/dL (12.5-16.3); LYMPHOCYTES # (AUTO) 0.5 K/uL (0.8-4.8); LYMPHOCYTES % (AUTO) 1.8 % (20.5-51.5); MEAN CORPUSCULAR HEMOGLOBIN 29.3 uug (23.8-33.4); MEAN CORPUSCULAR HGB CONC 32 g/dL (32.5-36.3); MEAN CORPUSCULAR VOLUME 90.3 fL (73.0-96.2); MONOCYTES # (AUTO) 1.6 K/uL (0.1-1.30); MONOCYTES % (AUTO) 6.3 % (0.0-11.0); NEUTROPHILS # (AUTO) 23.3 K/uL (1.8-8.9); NEUTROPHILS % (AUTO) 91.9 % (38.5-71.5); PLATELET COUNT (AUTO) 347 K/uL (152-348); RED BLOOD CELL COUNT(AUTO) 3.91 MIL/uL (4.06-5.63); RED CELL DISTRIBUTION WIDTH 21.3 % (12.1-16.2); WHITE BLOOD COUNT (AUTO) 25.4 K/uL (3.6-10.2)
[2023-04-11 05:47] LABS: DIFFERENTIAL COMMENT 1
[2023-04-11 05:57] LABS: ALANINE AMINOTRANSFERASE 2338 U/L (16-63); ALBUMIN 2.5 g/dL (3.4-5.0); ALKALINE PHOSPHATASE 175 U/L (50-136); BILIRUBIN,TOTAL 3.5 mg/dL (0.2-1.0); CALCIUM 8.2 mg/dL (8.5-10.1); CARBON DIOXIDE 19 mmol/L (21-32); CHLORIDE 98 mmol/L (98-107); CREATININE 2.8 mg/dL (0.6-1.3); GLUCOSE 146 mg/dL (74-106); PHOSPHOROUS 5.4 mg/dL (2.5-4.9); POTASSIUM 4.1 mmol/L (3.5-5.1); SODIUM SERUM 136 mmol/L (136-145); TOTAL PROTEIN, SERUM 6.8 g/dL (6.4-8.2); UREA NITROGEN, BLOOD 27 mg/dL (7-18)
[2023-04-11] MEDS: PANTOPRAZOLE SODIUM 40 MG TABLET.DR PO SCH ×2 (07:41→17:00)
[2023-04-11] MEDS: PROTEIN SUPPLEMENT (PROSTAT) 30 ML LIQUID PO SCH ×2 (07:43→08:00)
[2023-04-11] MEDS: NOREPINEPHRINE BITARTRATE 32 MG in IV NORMAL SALINE 218 ML IV PRN ×2 (07:53→23:42)
[2023-04-11 08:13] LABS: ASPARTATE AMINOTRANSFERASE > 4000 U/L (15-37)
[2023-04-11] MEDS: PHENYLEPHRINE IV 100 MG in IV NORMAL SALINE 240 ML IV PRN (08:52)
[2023-04-11] MEDS: CLOTRIMAZOLE 1% CREAM 30 GM TUBE TOP SCH ×2 (09:00→17:00)
[2023-04-11] MEDS: BACLOFEN 10 MG TABLET PO SCH ×2 (09:00→17:00)
[2023-04-11] MEDS: ASPIRIN EC 81 MG TABLET.DR PO SCH (09:00)
[2023-04-11] MEDS: VITAMINS A AND D OINT 42 GM TUBE TP SCH (09:00)
[2023-04-11] MEDS: DOCUSATE SODIUM 100 MG CAPSULE PO SCH ×2 (09:00→21:00)
[2023-04-11] MEDS: FINASTERIDE 5 MG TABLET PO SCH (09:00)
[2023-04-11] MEDS: BACITRACIN ZINC OINT 15 GM TUBE TOP SCH (09:00)
[2023-04-11] MEDS: REMEDY ESSENTIAL ZINC PASTE 113 GM TP SCH ×2 (09:00→17:00)
[2023-04-11] MEDS: NEPRO (VANILLA) 237 ML CAN PO SCH (09:00)
[2023-04-11] MEDS: RANOLAZINE 500 MG TAB.ER.12H PO SCH ×2 (09:00→17:00)
[2023-04-11] MEDS: DORZOLAMIDE 2% OPHT DROP 10 ML BOTTLE EACHEYE SCH ×2 (10:00→17:00)
[2023-04-11 14:41] LABS: *BLOOD, URINE 2+ (NEGATIVE); *KETONES,URINE 1+ (NEGATIVE); LEUKOCYTE ESTERASE ,URINE 3+ (NEGATIVE); NITRITE, URINE NEGATIVE (NEGATIVE); PH,URINE 5.5 (5.0-8.0); UGLUCOSE TRACE (NEGATIVE)
[2023-04-11 14:42] LABS: *BILIRUBIN,URIN 3+ (NEGATIVE); *CLARITY,URINE CLOUDY (CLEAR); *COLOR,URINE GREEN (YELLOW); *PROTEIN,URINE 3+ (NEGATIVE)
[2023-04-11] MEDS ORDERED: FENTANYL CITRATE/PF 1,000 MCG in IV NORMAL SALINE 80 ML IV PRN (16:30)
[2023-04-11] MEDS ORDERED: VANCOMYCIN IV 1,000 MG in IV DEXTROSE 5% 250 ML IV ONE (17:00)
[2023-04-11] MEDS: SODIUM HYPOCHLORITE 0.125% (QUARTER STRENGTH) 473 ML BOTTLE TP SCH (18:00)
[2023-04-11 18:50] LABS: BACTERIA,URINE MANY /HPF (NONE SEEN); SQUAMOUS EPITHELIAL CELL,UR FEW /HPF (NONE SEEN); WBC,URINE 50-80 /HPF (0-3); YEAST,URINE MANY /HPF (NONE SEEN)
[2023-04-11] MEDS: MEROPENEM 500 MG in IV NORMAL SALINE 50 ML IV SCH (23:05)
[2023-04-11] MEDS: TAMSULOSIN HCL 0.4 MG CAP.SR.24H PO SCH (23:05)
[2023-04-11] MEDS: MELATONIN 3 MG TABLET PO SCH (23:05)
[2023-04-12] VITALS (27 sets, daily range): BP systolic 0–130; BP diastolic 0–72; TEMP 97.5–99.8; O2SAT 0–100
[2023-04-12 05:25] LABS: EOSINOPHILS % (AUTO) 0.2 % (0.0-7.0); HEMATOCRIT 31.3 % (36.7-47.1); HEMOGLOBIN 10.2 g/dL (12.5-16.3); LYMPHOCYTES # (AUTO) 0.4 K/uL (0.8-4.8); LYMPHOCYTES % (AUTO) 2.9 % (20.5-51.5); MEAN CORPUSCULAR HEMOGLOBIN 29.2 uug (23.8-33.4); MEAN CORPUSCULAR HGB CONC 33 g/dL (32.5-36.3); MEAN CORPUSCULAR VOLUME 89.2 fL (73.0-96.2); MONOCYTES # (AUTO) 0.8 K/uL (0.1-1.30); MONOCYTES % (AUTO) 5.5 % (0.0-11.0); NEUTROPHILS # (AUTO) 13.6 K/uL (1.8-8.9); NEUTROPHILS % (AUTO) 91.4 % (38.5-71.5); PLATELET COUNT (AUTO) 277 K/uL (152-348); RED BLOOD CELL COUNT(AUTO) 3.51 MIL/uL (4.06-5.63); RED CELL DISTRIBUTION WIDTH 21.5 % (12.1-16.2); WHITE BLOOD COUNT (AUTO) 14.9 K/uL (3.6-10.2)
[2023-04-12 05:34] LABS: DIFFERENTIAL COMMENT 1
[2023-04-12 05:54] LABS: CALCIUM 8.2 mg/dL (8.5-10.1); CREATININE 2.7 mg/dL (0.6-1.3); POTASSIUM 3.8 mmol/L (3.5-5.1)
[2023-04-12 06:12] LABS: ALBUMIN 2.3 g/dL (3.4-5.0); BILIRUBIN,TOTAL 2.6 mg/dL (0.2-1.0); PHOSPHOROUS 4.9 mg/dL (2.5-4.9); TOTAL PROTEIN, SERUM 6.2 g/dL (6.4-8.2)
[2023-04-12] MEDS: PANTOPRAZOLE SODIUM 40 MG TABLET.DR PO SCH ×2 (07:39→17:00)
[2023-04-12] MEDS: PROTEIN SUPPLEMENT (PROSTAT) 30 ML LIQUID PO SCH (08:00)
[2023-04-12] MEDS: DOCUSATE SODIUM 100 MG CAPSULE PO SCH ×2 (09:13→21:00)
[2023-04-12] MEDS: DORZOLAMIDE 2% OPHT DROP 10 ML BOTTLE EACHEYE SCH ×2 (09:13→17:00)
[2023-04-12] MEDS: SODIUM HYPOCHLORITE 0.125% (QUARTER STRENGTH) 473 ML BOTTLE TP SCH (09:14)
[2023-04-12] MEDS: REMEDY ESSENTIAL ZINC PASTE 113 GM TP SCH ×2 (09:14→17:00)
[2023-04-12] MEDS: VITAMINS A AND D OINT 42 GM TUBE TP SCH (09:15)
[2023-04-12] MEDS: CLOTRIMAZOLE 1% CREAM 30 GM TUBE TOP SCH ×2 (09:15→17:00)
[2023-04-12] MEDS: FINASTERIDE 5 MG TABLET PO SCH (09:43)
[2023-04-12] MEDS: BACLOFEN 10 MG TABLET PO SCH ×2 (09:43→17:00)
[2023-04-12] MEDS: ASPIRIN EC 81 MG TABLET.DR PO SCH (09:44)
[2023-04-12] MEDS: MIDAZOLAM HCL 50 MG in IV NORMAL SALINE 40 ML IV PRN (09:44)
[2023-04-12 09:48] LABS: ABG BASE EXCESS -3.9 mmol/L (-2.0-2.0); ABG HCO3 19.6 mmol/L (22.0-26.0); ABG PCO2 30.8 mmHg (35.0-48.0); ABG PH 7.422 (7.340-7.440); ABG PO2 114.6 mmHg (75.0-100.0); ABG TOTAL HEMOGLOBIN 11.1 G/dL (14.0-18.0); AaDO2 98.3 mmHg; COHb 0.2 % (0.0-3.9); MetHb 0.1 % (0.0-1.5); O2Hb 97.7 % (94.0-97.0); VT, ABG 500 mL
[2023-04-12] MEDS: BACITRACIN ZINC OINT 15 GM TUBE TOP SCH (09:48)
[2023-04-12] MEDS: NEPRO (VANILLA) 237 ML CAN PO SCH (09:48)
[2023-04-12] MEDS: RANOLAZINE 500 MG TAB.ER.12H PO SCH ×2 (09:48→17:00)
[2023-04-12] MEDS: PHENYLEPHRINE IV 100 MG in IV NORMAL SALINE 240 ML IV PRN ×2 (16:52→23:08)
[2023-04-12] MEDS: NOREPINEPHRINE BITARTRATE 32 MG in IV NORMAL SALINE 218 ML IV PRN ×2 (16:55→21:48)
[2023-04-12] MEDS: MEROPENEM 500 MG in IV NORMAL SALINE 50 ML IV SCH (20:37)
[2023-04-12] MEDS ORDERED: FLUCONAZOLE 200 MG/NS 100ML IV 100 MG in PREMIXED 1 EACH IV SCH (21:00)
[2023-04-12] MEDS: TAMSULOSIN HCL 0.4 MG CAP.SR.24H PO SCH (21:00)
[2023-04-12] MEDS: MELATONIN 3 MG TABLET PO SCH (21:00)
[2023-04-12] MEDS ORDERED: DEXTROSE 50% 50 ML DISP.SYRIN ONE ×3 (23:26→23:36)
[2023-04-13] MEDS ORDERED: EPINEPHRINE 1:10,000 1 MG/10 ML DISP.SYRIN ONE ×2
[2023-04-13] MEDS ORDERED: SODIUM BICARBONATE 8.4% 50 MEQ/50 ML DISP.SYRIN IV ONE ×2
[2023-04-13] MEDS ORDERED: CALCIUM CHLORIDE 1 GM/10 ML DISP.SYRIN IVP ONE ×2
[2023-04-13] MEDS ORDERED: DEXTROSE 50% 50 ML DISP.SYRIN ONE
== END 2023-04-13 04:40 | DRG 951 ==
LOC: ER 12:48 → TELE3 17:36 → TRANSITION 04-09 23:59 → CCU 04-11 03:23
PROVIDERS: ADMIT Internal Medicine; ATTEND Internal Medicine
PROC: B548ZZA Ultrasonography of Superior Vena Cava, Guidance (ICD-10-PCS; principal; 2023-04-04)
PROC: 02HV33Z Insertion of Infusion Device into Superior Vena Cava, Percutaneous Approach (ICD-10-PCS; principal; 2023-04-04)
PROC: 5A1D70Z Performance of Urinary Filtration, Intermittent, Less than 6 Hours Per Day (ICD-10-PCS; principal; 2023-04-04)
PROC: 0KB Muscles, Excision (ICD-10-PCS; 2023-04-06)
PROC: 0J9Q3ZX Drainage of Right Foot Subcutaneous Tissue and Fascia, Percutaneous Approach, Diagnostic (ICD-10-PCS; 2023-04-06)
PROC: 30233N1 Transfusion of Nonautologous Red Blood Cells into Peripheral Vein, Percutaneous Approach (ICD-10-PCS; 2023-04-07)
PROC: 05HA33Z Insertion of Infusion Device into Left Brachial Vein, Percutaneous Approach (ICD-10-PCS; 2023-04-07)
PROC: 0BH17EZ Insertion of Endotracheal Airway into Trachea, Via Natural or Artificial Opening (ICD-10-PCS; 2023-04-09)
PROC: 5A1945Z Respiratory Ventilation, 24-96 Consecutive Hours (ICD-10-PCS; 2023-04-09)
PROC: 05HB33Z Insertion of Infusion Device into Right Basilic Vein, Percutaneous Approach (ICD-10-PCS; 2023-04-10)
PROC: 059 Upper Veins, Drainage (ICD-10-PCS; 2023-04-11)
PROC: 5A12012 Performance of Cardiac Output, Single, Manual (ICD-10-PCS; 2023-04-13)
DX: I13.2 Hypertensive heart and chronic kidney disease with heart failure and with stage 5 chronic kidney disease, or end stage renal disease (principal); N17.0 Acute kidney failure with tubular necrosis; J96.21 Acute and chronic respiratory failure with hypoxia; K72.00 Acute and subacute hepatic failure without coma; J69.0 Pneumonitis due to inhalation of food and vomit; A41.9 Sepsis, unspecified organism; R65.21 Severe sepsis with septic shock; G92.8 Other toxic encephalopathy; R53.2 Functional quadriplegia; E43 Unspecified severe protein-calorie malnutrition; E11.52 Type 2 diabetes mellitus with diabetic peripheral angiopathy with gangrene; D62 Acute posthemorrhagic anemia; D68.59 Other primary thrombophilia; L03.115 Cellulitis of right lower limb; E87.20 Acidosis, unspecified; I27.20 Pulmonary hypertension, unspecified; I21.4 Non-ST elevation (NSTEMI) myocardial infarction; I44.2 Atrioventricular block, complete; N18.5 Chronic kidney disease, stage 5; E11.22 Type 2 diabetes mellitus with diabetic chronic kidney disease; Z79.4 Long term (current) use of insulin; I50.23 Acute on chronic systolic (congestive) heart failure; I46.9 Cardiac arrest, cause unspecified; N39.0 Urinary tract infection, site not specified; N40.0 Benign prostatic hyperplasia without lower urinary tract symptoms; I25.2 Old myocardial infarction; B96.20 Unspecified Escherichia coli [E. coli] as the cause of diseases classified elsewhere; B95.62 Methicillin resistant Staphylococcus aureus infection as the cause of diseases classified elsewhere; Z16.12 Extended spectrum beta lactamase (ESBL) resistance; I25.5 Ischemic cardiomyopathy; E11.43 Type 2 diabetes mellitus with diabetic autonomic (poly)neuropathy; K31.84 Gastroparesis; E11.621 Type 2 diabetes mellitus with foot ulcer; L97.516 Non-pressure chronic ulcer of other part of right foot with bone involvement without evidence of necrosis; M24.541 Contracture, right hand; M24.542 Contracture, left hand; J98.11 Atelectasis; I25.10 Atherosclerotic heart disease of native coronary artery without angina pectoris; Z74.09 Other reduced mobility; E78.5 Hyperlipidemia, unspecified; Z53.9 Procedure and treatment not carried out, unspecified reason; N18.6 End stage renal disease; I08.2 Rheumatic disorders of both aortic and tricuspid valves; E66.9 Obesity, unspecified; Z68.29 Body mass index [BMI] 29.0-29.9, adult; L97.929 Non-pressure chronic ulcer of unspecified part of left lower leg with unspecified severity; L97.919 Non-pressure chronic ulcer of unspecified part of right lower leg with unspecified severity; D17.79 Benign lipomatous neoplasm of other sites; N50.89 Other specified disorders of the male genital organs; Z87.19 Personal history of other diseases of the digestive system; R18.8 Other ascites; M89.8X9 Other specified disorders of bone, unspecified site; Z86.16 Personal history of COVID-19; Z95.5 Presence of coronary angioplasty implant and graft; Z90.49 Acquired absence of other specified parts of digestive tract; Z87.01 Personal history of pneumonia (recurrent); Z79.899 Other long term (current) drug therapy; Z79.02 Long term (current) use of antithrombotics/antiplatelets; Z16.24 Resistance to multiple antibiotics
CPT/HCPCS: 36415; 36600; 71045; 73630; 83605; 83690; 83735; 84100; 84484; 85025; 85651; 85730; 86140; 86704; 86705; 86706; 86803; 86850; 86900; 86901; 86920; 87040; 87340; 88312-TC; 90937; 92950; 93005; 93307; 94002; 94003; 94760; A4606; A4649; A4663; A6213; G0378; J0171; J0282; J0690; J0696; J1450; J1644; J1940; J2185; J2250; J2405; J3010; J3370; J3475; J3490; J7040; J7050; P9016